=== PATIENT | male | born 1935 | race Caucasian/White ===

== ENCOUNTER 2019-01-04 12:12 | Inpatient (IN) ==
[2019-01-04] MEDS ORDERED: 0.9 % SODIUM CHLORIDE 1,000 ML IV ONE ×2 (12:39→14:11)
--- NOTE | 2019-01-04 12:46 | Emergency Department Note ---
Weakness HPI - General Chief complaint: Weakness Stated complaint: Weakness, General Fatigue, Diarrher Time Seen by Provider: 01/04/19 12:17 Source: patient Mode of arrival: wheelchair Limitations: no limitations - History of Present Illness HPI Narrative: 83-year-old male in ED with family present. Patient states he's had diarrhea for the last 5 days, this is not normal. Patient also has fever for the last 2 days. Patient has had increased weakness over the last few days. Patient has had lung cancer for the last 2.5 years. Patient does receive weekly infusions for 3 weeks on 1 week off. Patient was supposed to have his infusion today but his blood pressure was 112/60 with increased weakness and fever so he did not receive it and was advised to come into the ED. Patient has not been on antibiotics recently. Patient states he does get diarrhea from time to time but not to this extent. Patient has shortness of breath per his normal due to COPD. Patient has had no chest pain, no abdominal pain, no changes in his bladder, does have headache from time to time which is his normal. Patient has had recent changes at home as his was injured and is now in a care center for short period of time. Patient has been tending to himself at home and has had decreased appetite and increased activity. MD Complaint: generalized weakness, lack of energy Onset (ago): day(s) (5) Duration: constant Location: generalized Severity: moderate Improves with: none Worsens with: exertion Context: other (Diarrhea and wifes recent absence) Associated symptoms: Reports: fever/chills, loss of appetite, shortness of breath (chronic, does have HX-pneumonia) - Related Data Home Medications Medication Instructions Recorded Confirmed cyanocobalamin (vit B-12) 1,000 1,000 mcg PO .QOD tab 04/23/16 01/04/19 mcg tablet aspirin 81 mg tablet,delayed 81 mg PO QDAY 07/08/17 01/04/19 release paclitaxel 6 mg/mL 5.63 mg/m2/hr IV WEEKLY 06/14/18 01/04/19 concentrate,intravenous calcium 600mg/vitamin d3 400 iu 600 mg PO QDAY 08/16/18 01/04/19 cholecalciferol (vitamin D3) 1,000 1,000 unit PO QDAY 08/16/18 01/04/19 unit capsule pantoprazole 40 mg tablet,delayed 40 mg PO QDAY 08/16/18 01/04/19 release Denosumab [Xgeva] 120 mg SC QMONTH 01/04/19 01/04/19 Gabapentin [Neurontin] 300 mg PO TID 01/04/19 01/04/19 Tamsulosin [Flomax] 0.4 mg PO DAILY 01/04/19 01/04/19 traZODone HCL [Trazodone HCl] 100 mg PO HS 01/04/19 01/04/19 Previous Rx's Medication Instructions Recorded folic acid 1 mg tablet 1 mg PO QDAY #90 tab 03/08/18 fluoxetine 20 mg tablet 20 mg PO DAILY #30 tab 04/20/18 ipratropium-albuterol 0.5 mg-3 3 ml INHALATION Q6H PRN #90 ml 05/10/18 mg(2.5 mg base)/3 mL nebulization soln fluticasone 100 mcg-umeclid 62.5 1 inh INHALATION QDAY #60 each 06/03/18 mcg-vilant 25 mcg powd for inhalation potassium chloride ER 10 mEq 10 meq PO QDAY #90 tab 06/25/18 tablet,extended release albuterol sulfate HFA 90 2 puff INHALATION Q3-4H PRN #18 g 08/19/18 mcg/actuation aerosol inhaler Allergies Allergy/AdvReac Type Severity Reaction Status Date / Time fish oil Allergy Unknown Nausea Verified 08/16/18 10:28 spironolactone Allergy Unknown Unknown Verified 08/16/18 10:28 carvedilol AdvReac Intermediate Nausea Verified 08/16/18 10:28 Review of Systems All systems ED: reviewed and negative except as stated. Past Medical History - Past Medical History PMFSH Narrative: All Active Problems (Last Reviewed 10/13/17 @ 12:55 by Sandy Nguyễn RN) Anorexia (Acute) Weakness (Acute) Insomnia (Acute) Hypotension (Acute) Meningioma (Acute) Lung cancer (Chronic) Atherosclerotic PVD with intermittent claudication (Acute) Pneumothorax after biopsy (Acute) COPD (chronic obstructive pulmonary disease) (Chronic) Essential hypertension (Chronic) Hyperlipidemia (Chronic) Vitamin D deficiency (Chronic) Vitamin B 12 deficiency (Chronic) Peripheral neuropathy (Chronic) Homocystinemia (Chronic) History of tobacco use (Chronic) H/O sinus surgery (Chronic) Tuberculosis (Chronic) Gallbladder problem (Chronic) Depression (Chronic) Arthritis (Chronic) Acid reflux (Chronic) Past Surgical History (Last Reviewed 10/13/17 @ 12:55 by Sandy Nguyễn RN) H/O sinus surgery (Chronic) History of appendectomy (Chronic) History of cholecystectomy (Chronic) History of colonoscopy (Chronic) Hx of cataract surgery (Chronic) Status post surgery (Chronic) Family History (Last Reviewed 10/13/17 @ 12:55 by Sandy Nguyễn RN) Mother Malignant neoplasm of breast Father Pulmonary emphysema Malignant neoplasm of throat Sister Malignant neoplasm of endometrium Medical history: Reports: cancer (Lung, 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 Episode 20 years ago of acute renal failure.). Denies: coronary artery disease, CVA, DM, hypertension, myocardial infarction, thyroid disease, TIA Psychiatric history: Reports: anxiety. Denies: depression Surgical history ED: Reports: no surgical history - Social History smoking status: Former smoker Alcohol use: Reports: None Physical Exam Limitations: no limitations General appearance: alert, malaise Head: atraumatic, normocephalic, normal inspection Eye: Present: normal appearance, PERRL, EOMI. Absent: conjunctival injection ENT: normal oropharynx, mucous membranes dry, TM's normal bilaterally, normal external ear exam Neck: Present: normal inspection. Absent: tenderness, lymphadenopathy Chest: Present: normal inspection, symmetric chest wall rise, other (Port a cath access right side). Absent: tenderness Respiratory: Present: rales/crackles. Absent: respiratory distress, wheezes, accessory muscle use Cardiovascular: Present: irregular rhythm. Absent: systolic murmur, diastolic murmur Abdominal: Present: soft, normal bowel sounds. Absent: distention, tenderness, guarding, rebound, rigidity Extremities: Present: normal inspection, pedal edema (+1 bilaterally). Absent: tenderness Back: Present: normal inspection. Absent: tenderness, CVA tenderness (R), CVA tenderness (L) Neurological: Present: alert, oriented X3 Psychiatric: Present: normal affect, normal mood, depressed. Absent: agitated, anxious Skin: Present: warm, dry, intact, normal color. Absent: cyanosis, diaphoresis, erythema Course Vital Signs Temperature 99.3 F H 01/04/19 12:13 Pulse Rate 77 01/04/19 12:13 Respiratory Rate 18 01/04/19 12:13 Blood Pressure 76/49 01/04/19 12:13 Pulse Oximetry (%) 93 01/04/19 12:13 Temperature 99.3 F H 01/04/19 12:13 Pulse Rate 62 01/04/19 15:16 Respiratory Rate 18 01/04/19 15:16 Blood Pressure 134/69 01/04/19 15:16 Pulse Oximetry (%) 97 01/04/19 15:16 Weakness - MDM Narrative Medical decision making narrative: Patient originally presented 8 ED U 99.3 temperature 76/49 blood pressure 93% room air pulse 77. Provided patient 1 L normal saline and blood pressures stayed in the 70s. Switched patient's blood pressure cuff to other arm and blood pressures changed 90/56, added second liter normal saline blood pressure came up to 107/63. Patient's potassium was 3.2. Provided banana bag and lunch and patient's blood pressure increased to 126/70. Patient's x-ray did show chronic COPD with possible pneumonia. Patient's white blood cell count 6.1 and lactic acid 1.8. Discussed with Dr. Mayes holding patient for overnight observations, Dr. Mayes accepted patient placed him in ICU. - Lab Data Lab results reviewed: Yes I reviewed the patient's lab results. Result diagrams: 01/04/19 12:46 01/04/19 12:46 Lab Results 01/04/19 01/04/19 01/04/19 Range/Units 12:46 12:46 12:46 WBC 6.1 (4.5-11.0) K/mcL RBC 3.38 L (4.50-5.90) M/mcL Hgb 10.1 L (13.5-16.5) g/dL Hct 30.8 L (41.0-55.0) % POC Hct 30.0 L (41.0-55.0) % MCV 91.3 (80.0-100.0) fL MCH 29.9 (26.0-34.0) pg MCHC 32.7 (31.0-36.0) g/dL RDW 17.6 H (11.5-14.5) % Plt Count 245 (140-440) K/mcL MPV 9.5 (7.4-10.4) fL Gran % 83.5 H (38.0-78.0) % Lymph % (Auto) 5.3 L (15.5-49.0) % Avery % (Auto) 10.4 (1.0-12.0) % Eos % (Auto) 0.4 (0.0-7.0) % Baso % (Auto) 0.4 (0.0-2.0) % Gran # 5.1 (1.8-8.0) K/mcL Lymph # (Auto) 0.3 L (1.5-4.8) K/mcL Avery # (Auto) 0.6 (0.1-0.9) K/mcL Eos # (Auto) 0 (0.0-0.7) K/mcL Baso # (Auto) 0 (0.0-0.3) K/mcL VBG Lactic Acid 1.8 (0.5-2.0) mmol/L POC Sodium 135 (133-145) mmol/L Sodium 136 (133-145) mmol/L POC Potassium 3.1 L (3.3-5.1) mmol/L Potassium 3.2 L (3.3-5.1) mmol/L POC Chloride 99 (96-108) mmol/L Chloride 102 (96-108) mmol/L Carbon Dioxide 23 (22-30) mmol/L POC Total CO2 22 (22-30) mmol/L Anion Gap 11.0 (8-16) POC BUN 11 (8-23) mg/dl BUN 12 (8-23) mg/dl Creatinine 1.3 H (0.7-1.2) mg/dl POC Creatinine 1.3 H (0.7-1.2) mg/dl GFR Calculation 51 Glucose 159 H (70-105) mg/dL POC Glucose 157 H (70-105) mg/dL Calcium 8.2 L (8.6-10.4) mg/dl POC WB Ioniz Calcium 1.09 L (1.16-1.32) mmol/L Total Bilirubin 0.3 (0.0-1.0) mg/dL AST 17 (0-37) U/l ALT 10 (0-40) U/l Alkaline Phosphatase 102 (39-117) U/L CK-MB (CK-2) (0-4.9) ng/ml Myoglobin (28-72) ng/ml Troponin T (0-0.03) ng/ml Total Protein 5.5 L (5.9-8.4) gm/dL Albumin 2.9 L (3.2-5.2) gm/dL Globulin 2.6 (2.2-3.7) gm/dL Albumin/Globulin Ratio 1.1 (1.0-2.3) 01/04/19 01/04/19 Range/Units 12:48 12:48 WBC (4.5-11.0) K/mcL RBC (4.50-5.90) M/mcL Hgb (13.5-16.5) g/dL Hct (41.0-55.0) % POC Hct (41.0-55.0) % MCV (80.0-100.0) fL MCH (26.0-34.0) pg MCHC (31.0-36.0) g/dL RDW (11.5-14.5) % Plt Count (140-440) K/mcL MPV (7.4-10.4) fL Gran % (38.0-78.0) % Lymph % (Auto) (15.5-49.0) % Avery % (Auto) (1.0-12.0) % Eos % (Auto) (0.0-7.0) % Baso % (Auto) (0.0-2.0) % Gran # (1.8-8.0) K/mcL Lymph # (Auto) (1.5-4.8) K/mcL Avery # (Auto) (0.1-0.9) K/mcL Eos # (Auto) (0.0-0.7) K/mcL Baso # (Auto) (0.0-0.3) K/mcL VBG Lactic Acid (0.5-2.0) mmol/L POC Sodium (133-145) mmol/L Sodium (133-145) mmol/L POC Potassium (3.3-5.1) mmol/L Potassium (3.3-5.1) mmol/L POC Chloride (96-108) mmol/L Chloride (96-108) mmol/L Carbon Dioxide (22-30) mmol/L POC Total CO2 (22-30) mmol/L Anion Gap (8-16) POC BUN (8-23) mg/dl BUN (8-23) mg/dl Creatinine (0.7-1.2) mg/dl POC Creatinine (0.7-1.2) mg/dl GFR Calculation Glucose (70-105) mg/dL POC Glucose (70-105) mg/dL Calcium (8.6-10.4) mg/dl POC WB Ioniz Calcium (1.16-1.32) mmol/L Total Bilirubin (0.0-1.0) mg/dL AST (0-37) U/l ALT (0-40) U/l Alkaline Phosphatase (39-117) U/L CK-MB (CK-2) 3.5 (0-4.9) ng/ml Myoglobin 294 H (28-72) ng/ml Troponin T 0.01 (0-0.03) ng/ml Total Protein (5.9-8.4) gm/dL Albumin (3.2-5.2) gm/dL Globulin (2.2-3.7) gm/dL Albumin/Globulin Ratio (1.0-2.3) - Radiology Data Radiology results reviewed: Yes I reviewed the patient's radiology results. Chest x-ray: IMPRESSION: 1. Bibasilar pulmonary parenchymal density. Pneumonia is possible 2. Chronic COPD Disposition Pt seen by PROPERTY CLAIMS MANAGER/PA only: No ([employer]) Clinical Impression: Weakness Hypotension Qualifiers: Hypotension type: hypotension due to hypovolemia Qualified Code(s): I95.89 - Other hypotension; E86.1 - Hypovolemia Disposition: Xfer As Inpt ([facility]) Condition: Fair Referrals: Lon Burch DO [Primary Care Provider] - Time of Disposition: 15:38
--- NOTE | 2019-01-04 13:05 | XRay Report ---
INDICATION: COPD. Lung cancer. Flulike symptoms TECHNIQUE: AP chest x-ray,portable upright COMPARISON: Most recent previous chest x-rays dated 10/09/2017, 05/28/2017, 10/10/2016. Chest CT scan dated 04/18/2016 FINDINGS:Small caliber right central venous catheter with Port-A-Cath. Catheter tip is in the distal superior vena cava, unchanged. History of COPD. Previous CT scan demonstrated a right apical pulmonary parenchymal mass. This is not visible on present examination. There is bibasilar pulmonary parenchymal density which may be due to pneumonia. Clinical correlation follow-up radiograph recommended. No evidence for congestive heart failure There is sclerotic density in the anterior right first rib. Metastatic disease is possible. IMPRESSION: 1. Bibasilar pulmonary parenchymal density. Pneumonia is possible 2. Chronic COPD Interpreted and Authenticated by: Lon Bonilla 01/04/19
[2019-01-04 13:28] LABS: Basophils # (Auto) 0 K/mcL (0.0-0.3); Basophils % (Auto) 0.4 % (0.0-2.0); Eosinophils # (Auto) 0 K/mcL (0.0-0.7); Eosinophils % (Auto) 0.4 % (0.0-7.0); Granulocytes % (Auto) 83.5 % (38.0-78.0); Lymphocytes # (Auto) 0.3 K/mcL (1.5-4.8); Lymphocytes % (Auto) 5.3 % (15.5-49.0); Mean Cell Volume 91.3 fL (80.0-100.0); Mean Corpuscular HGB Conc 32.7 g/dL (31.0-36.0); Monocytes # (Auto) 0.6 K/mcL (0.1-0.9); Monocytes % (Auto) 10.4 % (1.0-12.0); Platelet Count 245 K/mcL (140-440); RBC 3.38 M/mcL (4.50-5.90); Red Cell Distribution Width 17.6 % (11.5-14.5)
[2019-01-04] MEDS ORDERED: POTASSIUM CHLORIDE 20 MEQ, MAGNESIUM SULFATE 16.24 MEQ, THIAMINE 100 MG, MVI, ADULT NO.... IV SCH (13:45)
[2019-01-04 13:51] LABS: Creatine Kinase MB 3.5 ng/ml (0-4.9)
[2019-01-04 13:54] LABS: ALT/SGPT 10 U/l (0-40); Albumin 2.9 gm/dL (3.2-5.2); Albumin/Globulin Ratio 1.1 (1.0-2.3); Alkaline Phosphatase 102 U/L (39-117); Blood Urea Nitrogen 12 mg/dl (8-23)
--- NOTE | 2019-01-04 14:55 | Internal Med History&Physical ---
Medical - H&P: [facility] Patient information: Note initiated : 01/04/19 at 2:45 pm Service Date, if different from initiated Date: [] Patient: Joni Darnell 83 y/o M admitted on for Weakness, General Fatigue, Diarrher. Chief Complaint: [] Chief complaint: weakness, LOW BP History of present illness: Mr. Darnell is a 83 year old M who presents to ER with progressive weakness, lightheadedness, dizziness, diarrhea that have started roughly a week ago last . Patient symptoms initially started with multiple loose watery stools progressing to weakness and lightheadedness and dizziness. Patient has substantial loss of appetite. He attributes the symptoms to "bad food"that he ate with some of his female friends. Over the last week patient has been held by his friend Omega who has been taking care of him. He also endorses to fever over the last 48 hours along with incontinence episode. He would find stool in his underwear. The diarrhea did not improve despite Imodium. Notably he is undergoing chemoradiation for his metastatic lung cancer which is managed by Dr. Ureña. Also he has had a stressful week as his sustained a fracture slipping on ice and is currently at [facility] recovering from surgery. Initial workup in the ER was significant for hypotension with systolics at 70 along with potassium 3.1. Patient received crystalloids. Subsequently hospitalist service was consulted for admission in light of above He denies abdominal pain, cramping, dysuria, shortness of breath, chest pain, headache, photophobia. He further denies weight loss, leg swelling, rash or joint pain. He denies sick contacts or travel Review of systems 10 point review system was performed and is negative except for one discussed above Medical - H&P: PMH Medical history: Lung cancer (Chronic) Pneumothorax after biopsy (Acute) 04/20 Chest film shows no pneumo and radiologist requests two view xray for to moorw to be done in dept. If OK then can put tube to water seal. 04/22 Discharge if chest film shows no pneumo after tube removal. COPD (chronic obstructive pulmonary disease) (Chronic) Essential hypertension (Chronic) Hyperlipidemia (Chronic) Vitamin D deficiency (Chronic) Vitamin B 12 deficiency (Chronic) Peripheral neuropathy (Chronic) Homocystinemia (Chronic) History of tobacco use (Chronic) Tuberculosis (Chronic) at age 8 Gallbladder problem (Chronic) removed Depression (Chronic) Arthritis (Chronic) Acid reflux (Chronic) Surgical History H/O sinus surgery (Chronic) 1983 sinus reconstruction History of appendectomy (Chronic) History of cholecystectomy (Chronic) 2001 due to gallstones History of colonoscopy (Chronic) 2003 Hx of cataract surgery (Chronic) right eye Status post surgery (Chronic) Surgery for perirectal abscess Family History Mother , at age 70 Malignant neoplasm of breast Metastasized to lungs Father , at age 64 Pulmonary emphysema Malignant neoplasm of throat Sister Malignant neoplasm of endometrium Social History marital status: other: Children-2 smoking status: Former smoker quit date: 01/22/07 pack-years: 50 alcohol intake frequency: does not drink substance use type: does not use Medical - H&P: Meds Home Medications Medication Instructions Recorded Confirmed Type cyanocobalamin (vit B-12) 1,000 1,000 mcg PO .QOD tab 04/23/16 01/04/19 History mcg tablet aspirin 81 mg tablet,delayed 81 mg PO QDAY 07/08/17 01/04/19 History release folic acid 1 mg tablet 1 mg PO QDAY #90 tab 03/08/18 01/04/19 Rx fluoxetine 20 mg tablet 20 mg PO DAILY #30 tab 04/20/18 01/04/19 Rx ipratropium-albuterol 0.5 mg-3 3 ml INHALATION Q6H PRN #90 ml 05/10/18 01/04/19 Rx mg(2.5 mg base)/3 mL nebulization soln fluticasone 100 mcg-umeclid 62.5 1 inh INHALATION QDAY #60 each 06/03/18 01/04/19 Rx mcg-vilant 25 mcg powd for inhalation paclitaxel 6 mg/mL 5.63 mg/m2/hr IV WEEKLY 06/14/18 01/04/19 History concentrate,intravenous potassium chloride ER 10 mEq 10 meq PO QDAY #90 tab 06/25/18 01/04/19 Rx tablet,extended release calcium 600mg/vitamin d3 400 iu 600 mg PO QDAY 08/16/18 01/04/19 History cholecalciferol (vitamin D3) 1,000 1,000 unit PO QDAY 08/16/18 01/04/19 History unit capsule pantoprazole 40 mg tablet,delayed 40 mg PO QDAY 08/16/18 01/04/19 History release albuterol sulfate HFA 90 2 puff INHALATION Q3-4H PRN #18 g 08/19/18 01/04/19 Rx mcg/actuation aerosol inhaler Denosumab [Xgeva] 120 mg SC QMONTH 01/04/19 01/04/19 History Gabapentin [Neurontin] 300 mg PO TID 01/04/19 01/04/19 History Tamsulosin [Flomax] 0.4 mg PO DAILY 01/04/19 01/04/19 History traZODone HCL [Trazodone HCl] 100 mg PO HS 01/04/19 01/04/19 History Allergies Allergy/AdvReac Type Severity Reaction Status Date / Time fish oil Allergy Unknown Nausea Verified 08/16/18 10:28 spironolactone Allergy Unknown Unknown Verified 08/16/18 10:28 carvedilol AdvReac Intermediate Nausea Verified 08/16/18 10:28 Medical - H&P: Exam - Constitutional Vitals: Temp Pulse Resp BP Pulse Ox 99.3 F H 62 21 117/74 96 01/04/19 12:13 01/04/19 14:01 01/04/19 14:01 01/04/19 14:01 01/04/19 14:01 General appearance: no acute distress Exam: Alert oriented Head normocephalic Neck no hepatopathy Oral cavity dry No ear nose discharge S1-S2 occasionally irregular, ejection systolic murmur grade 1 Diminished breath sounds bases, expiratory rhonchi, Port-A-Cath right side Abdomen soft nontender Lower extremity no cyanosis clubbing, 1+ pedal edema Skin no suspicious lesion Psych alert cooperative Neuro nonfocal Medical - H&P: Reslt - Labs CBC & Chem 7: 01/04/19 12:46 01/04/19 12:46 Labs: Short CBC 01/04/19 Range/Units 12:46 WBC 6.1 (4.5-11.0) K/mcL Hgb 10.1 L (13.5-16.5) g/dL Hct 30.8 L (41.0-55.0) % Plt Count 245 (140-440) K/mcL BMP 01/04/19 12:46 Sodium 136 Potassium 3.2 L Chloride 102 Carbon Dioxide 23 BUN 12 Creatinine 1.3 H Glucose 159 H Calcium 8.2 L Cardiac Enzymes 01/04/19 01/04/19 Range/Units 12:48 12:48 CK-MB (CK-2) 3.5 (0-4.9) ng/ml Troponin T 0.01 (0-0.03) ng/ml Liver Function 01/04/19 Range/Units 12:46 Total Bilirubin 0.3 (0.0-1.0) mg/dL AST 17 (0-37) U/l ALT 10 (0-40) U/l Alkaline Phosphatase 102 (39-117) U/L Albumin 2.9 L (3.2-5.2) gm/dL Medical - H&P: A/P (1) Hypotension Current visit: Yes Status: Acute * Hypotension-likely volume depletion from persistent diarrhea and poor p.o. intake. Continue crystalloid/close monitoring. Check orthostatiics, no evidence of infection/sepsis. personnel monitor for bradycardia/arrhythmias, hold antihypertensives. Low probability PE in the absence of hypoxia. Last echo reviewed 10/14/16-EF 65% with concentric LVH * Hypokalemia-start replacement. Potassium 3.1 * Diarrhea-check C. difficile/stool study. Continue crystalloids * Generalized weakness-aggressive PT OT * Lung cancer-Currently on paclitaxel and denosumab managed at [facility] * Essential hypertension-hold antihypertensives until blood pressure improves * History of COPD continue bronchodilators * History of chronic kidney disease-creatinine baseline * Depression-continue home dose fluoxetine * Peripheral vascular disease on pentoxifylline * Neuropathy continue gabapentin * BPH continue tamsulosin * Full code * Prophylaxis heparin Plan * Crystalloids * Inpatient telemetry admit * Potassium replacement * Stool culture/C. difficile/fecal leukocytes * Aggressive PT OT * Pre-existing condition management as above
[2019-01-04] MEDS ORDERED: IPRATROPIUM/ALBUTEROL 3 ML AMPUL.NEB NEB PRN (15:01)
[2019-01-04] MEDS ORDERED: ALBUTEROL SULFATE 1 PUFF INHALER INH PRN (15:01)
[2019-01-04] MEDS ORDERED: [UNRECOGNIZED DRUG - OTHER] IV SCH (15:15)
[2019-01-04] MEDS ORDERED: PACLITAXEL IV SCH (15:15)
[2019-01-04] MEDS ORDERED: ONDANSETRON 4 MG/2 ML VIAL IV PRN (16:33)
[2019-01-04] MEDS ORDERED: MAGNESIUM SULFATE 2 GM/50 ML BAG IV PRN (16:33)
[2019-01-04] MEDS ORDERED: POTASSIUM CHLORIDE 20 MEQ PACKET PO PRN (16:33)
[2019-01-04] MEDS ORDERED: ACETAMINOPHEN 325 MG TABLET PO PRN (16:33)
[2019-01-04] MEDS: 0.9 % SODIUM CHLORIDE 1,000 ML IV SCH (16:38)
[2019-01-04] MEDS: ACETAMINOPHEN 1,000 MG/100 ML BOTTLE IV PRN (17:10)
[2019-01-04 18:24] LABS: Appearance,Urine CLEAR; Bacteria,Urine 0 /hpf (0); Bilirubin,Urine NEG (NEG); Color,Urine YELLOW; Glucose,Urine (UA) NEGATIVE (NEG); Leukocyte Esterase,Urine NEG /uL (NEG); Protein,Urine NEG (NEG); Specific Gravity,Urine 1.008 (1.000-1.035); Urine Blood NEG mg/dL (<0.03); Urine RBC 0 /hpf (0-1); Urine Squamous Epithelial Cell < 1 /hpf (0-4); Urine WBC 1 /hpf (0-4); Urobilinogen,Urine NEG (NEG)
[2019-01-04] MEDS: SENNOSIDES/DOCUSATE SODIUM 1 TAB TABLET PO SCH (20:24)
[2019-01-04] MEDS: DOCUSATE SODIUM 100 MG CAPSULE PO SCH (20:24)
[2019-01-04] MEDS: GABAPENTIN 300 MG CAPSULE PO SCH (20:33)
[2019-01-04] MEDS: HEPARIN 5,000 UNIT/ML VIAL SQ SCH (20:34)
[2019-01-04] MEDS: 0.9 % SODIUM CHLORIDE 10 ML SYRINGE IV SCH (20:34)
[2019-01-04] MEDS: traZODone HCL 100 MG TABLET PO SCH (20:34)
[2019-01-04] MEDS: CYANOCOBALAMIN (VITAMIN B-12) 500 MCG TABLET PO SCH (20:34)
--- NOTE | 2019-01-04 22:06 | Emergency Department Note ---
ED Note Addendum Note Addendum: I discussed this case with the mid-level provider and agree with the assessment and plan.
[2019-01-05] MEDS: ACETAMINOPHEN 1,000 MG/100 ML BOTTLE IV PRN ×2 (00:18→06:31)
[2019-01-05] MEDS: 0.9 % SODIUM CHLORIDE 10 ML SYRINGE IV SCH ×3 (05:34→21:12)
[2019-01-05 06:38] LABS: Mean Corpuscular HGB Conc 32.2 g/dL (31.0-36.0); Platelet Count 232 K/mcL (140-440); RBC 3.13 M/mcL (4.50-5.90); Red Cell Distribution Width 17.7 % (11.5-14.5)
[2019-01-05] MEDS: PANTOPRAZOLE 40 MG TABLET PO SCH (06:55)
[2019-01-05 07:14] LABS: ALT/SGPT 12 U/l (0-40); Albumin 2.5 gm/dL (3.2-5.2); Alkaline Phosphatase 131 U/L (39-117); Bilirubin,Direct 0.2 mg/dL (0.0-0.3); Blood Urea Nitrogen 8 mg/dl (8-23); Gamma Glutamyl Transpeptidase 51 U/L (8-61); Uric Acid 4.4 mg/dL (2.5-8.0)
[2019-01-05 07:41] LABS: Anisocytosis 1+ (NONE SEEN); Band Neutrophils % 1 % (0-10); Eosinophils % (Manual) 1 % (0-7); Lymphocytes % 3 % (15-49); Monocytes % (Manual) 5 % (1-12); Platelet Estimate NORMAL (NORMAL); RBC Morphology ABNORM (NORMAL); Segmented Neutrophils % 90 % (38-78)
[2019-01-05] MEDS ORDERED: DENOSUMAB 120 MG SC SCH (09:00)
[2019-01-05] MEDS: TAMSULOSIN 0.4 MG CAPSULE PO SCH (09:39)
[2019-01-05] MEDS: DOCUSATE SODIUM 100 MG CAPSULE PO SCH ×3 (09:39→21:12)
[2019-01-05] MEDS: HEPARIN 5,000 UNIT/ML VIAL SQ SCH ×2 (09:39→21:12)
[2019-01-05] MEDS: ASPIRIN 81 MG TAB.CHEW PO SCH (09:39)
[2019-01-05] MEDS: POTASSIUM CHLORIDE 10 MEQ TABLET PO SCH (09:39)
[2019-01-05] MEDS: FLUoxetine HCL 20 MG CAPSULE PO SCH (09:40)
[2019-01-05] MEDS: GABAPENTIN 300 MG CAPSULE PO SCH ×2 (09:40→21:11)
[2019-01-05] MEDS: MULTIVIT,THER IRON,CA,FA & MIN 1 TABLET PO SCH (09:40)
[2019-01-05] MEDS: FLUTICASONE INH SCH (09:40)
[2019-01-05] MEDS: UMECLIDINIUM INH SCH (09:40)
[2019-01-05] MEDS: FOLIC ACID 1 MG TABLET PO SCH (09:40)
[2019-01-05] MEDS: CYANOCOBALAMIN (VITAMIN B-12) 500 MCG TABLET PO SCH ×2 (09:40→21:12)
[2019-01-05] MEDS: VILANTEROL INH SCH (09:40)
[2019-01-05] MEDS: 0.9 % SODIUM CHLORIDE 1,000 ML IV SCH (14:03)
--- NOTE | 2019-01-05 17:23 | Internal Med Progress Note ---
Medical - PN: Subj Patient information: Note initiated : 01/05/19 at 5:18 pm Service Date, if different from initiated Date: [] Patient: Joni Darnell 83 y/o M admitted on 01/04/19 for Weakness, General Fatigue, Diarrher. Chief Complaint: [] Interval history: Mr. Darnell is a 83 year old M who presents to ER with progressive weakness, lightheadedness, dizziness, diarrhea that have started roughly a week ago last T hursday. Patient symptoms initially started with multiple loose watery stools progressing to weakness and lightheadedness and dizziness. Patient has substantial loss of appetite. He attributes the symptoms to "bad food"that he ate with some of his female friends. Over the last week patient has been held by his friend Omega who has been taking care of him. He also endorses to fever over the last 48 hours along with incontinence episode. He would find stool in his underwear. The diarrhea did not improve despite Imodium. Notably he is undergoing chemoradiation for his metastatic lung cancer which is managed by Dr. Ureña. Also he has had a stressful week as his sustained a fracture slipping on ice and is currently at [facility] recovering from surgery. Initial workup in the ER was significant for hypotension with systolics at 70 along with potassium 3.1. Patient received crystalloids. Subsequently hospitalist service was consulted for admission in light of above He denies abdominal pain, cramping, dysuria, shortness of breath, chest pain, headache, photophobia. He further denies weight loss, leg swelling, rash or joint pain. He denies sick contacts or travel 01/05-patient doing well. Improved hypotension. No telemetry events. Potassium improved from 3.1-3.6. Tolerating diet. Diarrhea resolved. Nausea improved. Continue existing treatments. Transfer to medical floor in 24 hours. Continue aggressive rehab/dietary support. No overnight fever chills or concerns per staff - Constitutional Vitals: Vital Signs Temp Pulse Resp BP Pulse Ox 98.1 F 56 L 18 152/86 92 01/05/19 16:29 01/04/19 20:27 01/05/19 16:29 01/05/19 16:29 01/05/19 16:29 Period Temp Pulse Resp BP Sys/Benavides Pulse Ox Last 24 Hr 97.7 F-100.0 F 56-65 16-25 70-152/45-94 83-97 Intake and Output 01/05/19 01/05/19 01/05/19 05:59 13:59 21:59 Intake Total 460 2040 Output Total 850 1050 Balance -390 990 Weight 167 lb Patient Weight 01/06/19 05:59 Weight 167 lb Intake & Output: Intake & Output 01/05/19 01/05/19 01/05/19 05:59 13:59 21:59 Intake Total 460 2040 Output Total 850 1050 Balance -390 990 Weight 167 lb Intake: IV 100 1100 Sodium Chloride 0.9% 1,000 ml @ 1000 50 mls/hr IV .Q20H [facility] Rx#: [id number] Oral 360 940 Output: Void Amount 850 1050 Other: Urine Appearance Clear Urine Color Bright Yellow Pale General appearance: cooperative, no acute distress Exam: Alert oriented No telemetry events No anxiety Nonlabored breathing Medical - PN: Obj Da - Labs CBC & Chem 7: 01/05/19 03:21 01/05/19 03:21 Labs: Abnormal Lab Results 01/05/19 01/05/19 01/04/19 03:21 03:21 12:48 RBC 3.13 L Hgb 9.3 L Hct 28.8 L POC Hct RDW 17.7 H Gran % Lymph % (Auto) Lymph # (Auto) Seg Neutrophils % 90 H Lymphocytes % 3 L RBC Morphology Abnorm A Anisocytosis 1+ A POC Potassium Potassium Chloride 110 H Creatinine POC Creatinine Glucose POC Glucose Calcium 7.6 L POC WB Ioniz Calcium Phosphorus 1.4 L Alkaline Phosphatase 131 H Myoglobin 294 H Total Protein 5.0 L Albumin 2.5 L 01/04/19 01/04/19 12:46 12:46 RBC 3.38 L Hgb 10.1 L Hct 30.8 L POC Hct 30.0 L RDW 17.6 H Gran % 83.5 H Lymph % (Auto) 5.3 L Lymph # (Auto) 0.3 L Seg Neutrophils % Lymphocytes % RBC Morphology Anisocytosis POC Potassium 3.1 L Potassium 3.2 L Chloride Creatinine 1.3 H POC Creatinine 1.3 H Glucose 159 H POC Glucose 157 H Calcium 8.2 L POC WB Ioniz Calcium 1.09 L Phosphorus Alkaline Phosphatase Myoglobin Total Protein 5.5 L Albumin 2.9 L Meds: Medications Acetaminophen (Tylenol) 650 mg PO Q4-6HP PRN PRN Reason: PAIN/FEVER > 101 Albuterol Sulfate (Ventolin) 2 puff INH Q3-4HP PRN PRN Reason: BRONCHOSPASM Albuterol/Ipratropium (Duoneb) 3 ml NEB Q6HP PRN PRN Reason: Wheezing Aspirin (Aspirin) 81 mg PO DAILY [facility] Last Admin: 01/05/19 09:39 Dose: 81 mg Documented by: Cyanocobalamin (Vitamin B-12) 1,000 mcg PO BID [facility] Stop: 01/09/19 09:01 Last Admin: 01/05/19 09:40 Dose: 1,000 mcg Documented by: Docusate Sodium (Colace) 100 mg PO BID [facility] Last Admin: 01/05/19 09:51 Dose: Not Given Documented by: Fluoxetine HCl (Prozac) 20 mg PO DAILY [facility] Last Admin: 01/05/19 09:40 Dose: 20 mg Documented by: Folic Acid (Folic Acid) 1 mg PO QDAY [facility] Last Admin: 01/05/19 09:40 Dose: 1 mg Documented by: Gabapentin (Neurontin) 300 mg PO BID [facility] Last Admin: 01/05/19 09:40 Dose: 300 mg Documented by: Heparin Sodium (Porcine) (Heparin) 5,000 unit SQ Q12 [facility] Last Admin: 01/05/19 09:39 Dose: 5,000 unit Documented by: Magnesium Sulfate (Magnesium Sulfate) 2 gm in 50 mls @ 50 mls/hr IV UD PRN PRN Reason: MG = or < 1.7 Sodium Chloride (Sodium Chloride 0.9%) 1,000 mls @ 50 mls/hr IV .Q20H [facility] Stop: 01/07/19 04:32 Last Admin: 01/05/19 14:03 Dose: 50 mls/hr Documented by: Acetaminophen (Ofirmev) 1,000 mg in 100 mls @ 200 mls/hr IV Q6HP PRN PRN Reason: PAIN/FEVER > 101 Last Infusion: 01/05/19 07:40 Dose: Infused Documented by: Iron Carb/Multivit/[place]/Folic Acid (Multivitamin W/Minerals) 1 tab PO DAILY [facility] Last Admin: 01/05/19 09:40 Dose: 1 tab Documented by: Ondansetron HCl (Zofran) 4 mg IV Q4-6HP PRN PRN Reason: Nausea And Vomiting Pantoprazole Sodium (Protonix) 40 mg PO ACB [facility] Last Admin: 01/05/19 06:55 Dose: 40 mg Documented by: Fluticasone 100 Mcg/Umeclidinium 62.5 Mcg/ Vilanterol 25 Mcg Inhaler 1 dose INH DAILY [facility] Last Admin: 01/05/19 09:40 Dose: Not Given Documented by: Potassium Chloride (Kdur) 10 meq PO QAC [facility] Last Admin: 01/05/19 09:39 Dose: 10 meq Documented by: Potassium Chloride (Klor-Con) 40 meq PO DAILYP PRN PRN Reason: K+ < 3.5 Senna/Docusate Sodium (Senna Plus Tablet) 1 tab PO [facility] Last Admin: 01/04/19 20:24 Dose: Not Given Documented by: Sodium Chloride (Saline Flush) 10 ml IV Q8 [facility] Last Admin: 01/05/19 14:03 Dose: Not Given Documented by: Tamsulosin HCl (Flomax) 0.4 mg PO DAILY [facility] Last Admin: 01/05/19 09:39 Dose: 0.4 mg Documented by: Trazodone HCl (Desyrel) 100 mg PO [facility] Last Admin: 01/04/19 20:34 Dose: 100 mg Documented by: Medical - PN: A/P - Time Spent With Patient Total time spent is greater than 50% in coordination of care (as documented) at patient's floor/unit and/or counseling patient: 15 - 24 minutes (1) Hypotension Status: Acute Assessment and plan: * Hypotension-likely volume depletion from persistent diarrhea and poor p.o. intake. Clinically improved with crystalloids. Orthostatics unremarkable. no evidence of infection/sepsis. Last echo reviewed 10/14/16-EF 65% with concentric LVH * Hypokalemia-resolved with replacement. Potassium 3.6 * Generalized weakness-ongoing rehab. manufacturing area manager arrange SNF transfer * Diarrhea-noninfectious, resolved. Continue crystalloids. Negative stool culture, C. difficile, fecal leukocyte * Generalized weakness-clinically improving with ongoing PT OT * Lung cancer-Currently on paclitaxel and denosumab managed at [place] [facility] * Essential hypertension-restart antihypertensives once systolics over 140 * History of COPD continue bronchodilators * History of chronic kidney disease-creatinine baseline * Depression-continue home dose fluoxetine * Peripheral vascular disease on pentoxifylline * Neuropathy continue gabapentin * BPH continue tamsulosin * Full code * Prophylaxis heparin Plan * Continue crystalloids * Nutrition support/therapies * Pre-existing condition management as above * Case management to coordinate SNF transfer Current Visit: Yes Medical - PN: Qual - Stroke Symptom Onset Unknown: No - VTE Deep Vein Thrombosis/Pulmonary Embolism Present on Admission: No
[2019-01-05] MEDS: traZODone HCL 100 MG TABLET PO SCH (21:11)
[2019-01-05] MEDS: SENNOSIDES/DOCUSATE SODIUM 1 TAB TABLET PO SCH (21:12)
[2019-01-06] MEDS: 0.9 % SODIUM CHLORIDE 10 ML SYRINGE IV SCH ×3 (04:36→21:34)
[2019-01-06 05:37] LABS: Mean Cell Volume 91.4 fL (80.0-100.0); Mean Corpuscular HGB Conc 32.8 g/dL (31.0-36.0); Platelet Count 338 K/mcL (140-440); Red Cell Distribution Width 18.1 % (11.5-14.5)
[2019-01-06 06:31] LABS: ALT/SGPT 12 U/l (0-40); Albumin 2.8 gm/dL (3.2-5.2); Albumin/Globulin Ratio 0.9 (1.0-2.3); Alkaline Phosphatase 191 U/L (39-117); Bilirubin,Direct < 0.2 mg/dL (0.0-0.3); Blood Urea Nitrogen 5 mg/dl (8-23); Gamma Glutamyl Transpeptidase 64 U/L (8-61); Uric Acid 3.5 mg/dL (2.5-8.0)
[2019-01-06 06:48] LABS: Anisocytosis 1+ (NONE SEEN); Band Neutrophils % 1 % (0-10); Eosinophils % (Manual) 1 % (0-7); Lymphocytes % 5 % (15-49); Monocytes % (Manual) 7 % (1-12); Platelet Estimate NORMAL (NORMAL); RBC Morphology ABNORM (NORMAL); Segmented Neutrophils % 86 % (38-78)
[2019-01-06] MEDS: PANTOPRAZOLE 40 MG TABLET PO SCH (07:30)
[2019-01-06] MEDS: POTASSIUM CHLORIDE 10 MEQ TABLET PO SCH (07:30)
[2019-01-06] MEDS: TAMSULOSIN 0.4 MG CAPSULE PO SCH (08:48)
[2019-01-06] MEDS: HEPARIN 5,000 UNIT/ML VIAL SQ SCH ×2 (08:48→21:34)
[2019-01-06] MEDS: GABAPENTIN 300 MG CAPSULE PO SCH ×2 (08:48→21:34)
[2019-01-06] MEDS: FOLIC ACID 1 MG TABLET PO SCH (08:48)
[2019-01-06] MEDS: FLUoxetine HCL 20 MG CAPSULE PO SCH (08:48)
[2019-01-06] MEDS: MULTIVIT,THER IRON,CA,FA & MIN 1 TABLET PO SCH (08:48)
[2019-01-06] MEDS: ASPIRIN 81 MG TAB.CHEW PO SCH (08:48)
[2019-01-06] MEDS: CYANOCOBALAMIN (VITAMIN B-12) 500 MCG TABLET PO SCH ×2 (08:48→21:32)
[2019-01-06] MEDS: DOCUSATE SODIUM 100 MG CAPSULE PO SCH ×2 (08:49→21:32)
[2019-01-06] MEDS: FLUTICASONE INH SCH (10:33)
[2019-01-06] MEDS: UMECLIDINIUM INH SCH (10:33)
[2019-01-06] MEDS: VILANTEROL INH SCH (10:33)
[2019-01-06] MEDS: 0.9 % SODIUM CHLORIDE 1,000 ML IV SCH (10:43)
--- NOTE | 2019-01-06 11:15 | Internal Med Progress Note ---
Medical - PN: Subj Patient information: Note initiated : 01/06/19 at 11:12 am Service Date, if different from initiated Date: [] Patient: Joni Darnell 83 y/o M admitted on 01/04/19 for Weakness, General Fatigue, Diarrher. Chief Complaint: [] Interval history: Mr. Darnell is a 83 year old M who presents to ER with progressive weakness, lightheadedness, dizziness, diarrhea that have started roughly a week ago last . Patient symptoms initially started with multiple loose watery stools progressing to weakness and lightheadedness and dizziness. Patient has substantial loss of appetite. He attributes the symptoms to "bad food"that he ate with some of his female friends. Over the last week patient has been held by his friend Omega who has been taking care of him. He also endorses to fever over the last 48 hours along with incontinence episode. He would find stool in his underwear. The diarrhea did not improve despite Imodium. Notably he is undergoing chemoradiation for his metastatic lung cancer which is managed by Dr. Ureña. Also he has had a stressful week as his sustained a fracture slipping on ice and is currently at [facility] recovering from surgery. Initial workup in the ER was significant for hypotension with systolics at 70 along with potassium 3.1. Patient received crystalloids. Subsequently hospitalist service was consulted for admission in light of above He denies abdominal pain, cramping, dysuria, shortness of breath, chest pain, headache, photophobia. He further denies weight loss, leg swelling, rash or joint pain. He denies sick contacts or travel 01/05-patient doing well. Improved hypotension. No telemetry events. Potassium improved from 3.1-3.6. Tolerating diet. Diarrhea resolved. Nausea improved. Continue existing treatments. Transfer to medical floor in 24 hours. Continue aggressive rehab/dietary support. No overnight fever chills or concerns per staff 01/06-patient doing a lot better. Diarrhea resolved. On crystalloids. Hy potension resolved. Ambulating tolerating diet. No telemetry events. Transfer to medical floor. Continue nutrition and rehab support. Anticipate SNF transfer in 24 hours if clinically continues to improve. Feeling a lot stronger and near baseline. - Constitutional Vitals: Vital Signs Temp Pulse Resp BP Pulse Ox 99.8 F H 81 21 151/98 93 01/06/19 07:10 01/05/19 22:44 01/06/19 07:10 01/06/19 07:10 01/06/19 07:10 Period Temp Pulse Resp BP Sys/Benavides Pulse Ox Last 24 Hr 98.1 F-100.3 F 80-81 17-25 132-152/86-98 92-95 Intake and Output 01/05/19 01/06/19 01/06/19 21:59 05:59 13:59 Intake Total 101 272 9714 Output Total 550 1675 Balance -80 -1315 1840 Weight 169 lb Intake & Output: Intake & Output 01/05/19 01/06/19 01/06/19 21:59 05:59 13:59 Intake Total 112 772 9225 Output Total 550 1675 Balance -80 -1315 1840 Weight 169 lb Intake: Nourishment/Supplement quantity 50 (ml) IV 1000 Sodium Chloride 0.9% 1,000 ml @ 1000 50 mls/hr IV .Q20H [facility] Rx#: [id number] Oral 420 360 840 Output: Void Amount 550 1675 Other: Meal Dinner Breakfast Percent of Meal Consumed 50% 50% Feeding Ability Independent Independent Urine Appearance Clear Clear Urine Color Bright Yellow Bright Yellow Urine Odor Normal Normal Stool Size Moderate Small Stool Color Brown Brown Stool Consistency Liquid Liquid # Voids 1 1 # Bowel Movements 1 # of times incontinent of 1 Bowels General appearance: no acute distress Exam: Alert oriented No lightheadedness dizziness Non labored breathing No anxiety Medical - PN: Obj Da - Labs CBC & Chem 7: 01/06/19 03:33 01/06/19 03:33 Labs: Abnormal Lab Results 01/06/19 01/06/19 01/05/19 03:33 03:33 03:21 RBC 3.70 L Hgb 11.1 L Hct 33.8 L POC Hct RDW 18.1 H Gran % Lymph % (Auto) Lymph # (Auto) Seg Neutrophils % 86 H Lymphocytes % 5 L RBC Morphology Abnorm A Anisocytosis 1+ A POC Potassium Potassium Chloride 110 H BUN 5 L Creatinine POC Creatinine Glucose 137 H POC Glucose Calcium 7.9 L 7.6 L POC WB Ioniz Calcium Phosphorus 1.2 L 1.4 L GGT 64 H Alkaline Phosphatase 191 H 131 H Lactate Dehydrogenase 263 H Myoglobin Total Protein 5.0 L Albumin 2.8 L 2.5 L Albumin/Globulin Ratio 0.9 L 01/05/19 01/04/19 01/04/19 03:21 12:48 12:46 RBC 3.13 L Hgb 9.3 L Hct 28.8 L POC Hct 30.0 L RDW 17.7 H Gran % Lymph % (Auto) Lymph # (Auto) Seg Neutrophils % 90 H Lymphocytes % 3 L RBC Morphology Abnorm A Anisocytosis 1+ A POC Potassium 3.1 L Potassium 3.2 L Chloride BUN Creatinine 1.3 H POC Creatinine 1.3 H Glucose 159 H POC Glucose 157 H Calcium 8.2 L POC WB Ioniz Calcium 1.09 L Phosphorus GGT Alkaline Phosphatase Lactate Dehydrogenase Myoglobin 294 H Total Protein 5.5 L Albumin 2.9 L Albumin/Globulin Ratio 01/04/19 12:46 RBC 3.38 L Hgb 10.1 L Hct 30.8 L POC Hct RDW 17.6 H Gran % 83.5 H Lymph % (Auto) 5.3 L Lymph # (Auto) 0.3 L Seg Neutrophils % Lymphocytes % RBC Morphology Anisocytosis POC Potassium Potassium Chloride BUN Creatinine POC Creatinine Glucose POC Glucose Calcium POC WB Ioniz Calcium Phosphorus GGT Alkaline Phosphatase Lactate Dehydrogenase Myoglobin Total Protein Albumin Albumin/Globulin Ratio Meds: Medications Acetaminophen (Tylenol) 650 mg PO Q4-6HP PRN PRN Reason: PAIN/FEVER > 101 Last Admin: 01/06/19 08:48 Dose: 650 mg Documented by: Albuterol Sulfate (Ventolin) 2 puff INH Q3-4HP PRN PRN Reason: BRONCHOSPASM Albuterol/Ipratropium (Duoneb) 3 ml NEB Q6HP PRN PRN Reason: Wheezing Aspirin (Aspirin) 81 mg PO DAILY [facility] Last Admin: 01/06/19 08:48 Dose: 81 mg Documented by: Cyanocobalamin (Vitamin B-12) 1,000 mcg PO BID [facility] Stop: 01/09/19 09:01 Last Admin: 01/06/19 08:48 Dose: 1,000 mcg Documented by: Docusate Sodium (Colace) 100 mg PO BID [facility] Last Admin: 01/06/19 08:49 Dose: Not Given Documented by: Fluoxetine HCl (Prozac) 20 mg PO DAILY [facility] Last Admin: 01/06/19 08:48 Dose: 20 mg Documented by: Folic Acid (Folic Acid) 1 mg PO QDAY [facility] Last Admin: 01/06/19 08:48 Dose: 1 mg Documented by: Gabapentin (Neurontin) 300 mg PO BID [facility] Last Admin: 01/06/19 08:48 Dose: 300 mg Documented by: Heparin Sodium (Porcine) (Heparin) 5,000 unit SQ Q12 [facility] Last Admin: 01/06/19 08:48 Dose: 5,000 unit Documented by: Heparin Sodium (Porcine) (Heparin Flush) 2 ml IV Q12 [facility] Last Admin: 01/06/19 10:46 Dose: 2 ml Documented by: Magnesium Sulfate (Magnesium Sulfate) 2 gm in 50 mls @ 50 mls/hr IV UD PRN PRN Reason: MG = or < 1.7 Acetaminophen (Ofirmev) 1,000 mg in 100 mls @ 200 mls/hr IV Q6HP PRN PRN Reason: PAIN/FEVER > 101 Last Infusion: 01/05/19 07:40 Dose: Infused Documented by: Iron Carb/Multivit/[place]/Folic Acid (Multivitamin W/Minerals) 1 tab PO DAILY [facility] Last Admin: 01/06/19 08:48 Dose: 1 tab Documented by: Ondansetron HCl (Zofran) 4 mg IV Q4-6HP PRN PRN Reason: Nausea And Vomiting Pantoprazole Sodium (Protonix) 40 mg PO ACB [facility] Last Admin: 01/06/19 07:30 Dose: 40 mg Documented by: Fluticasone 100 Mcg/Umeclidinium 62.5 Mcg/ Vilanterol 25 Mcg Inhaler 1 dose INH DAILY [facility] Last Admin: 01/06/19 10:33 Dose: Not Given Documented by: Potassium Chloride (Kdur) 10 meq PO QAMCC [facility] Last Admin: 01/06/19 07:30 Dose: 10 meq Documented by: Potassium Chloride (Klor-Con) 40 meq PO DAILYP PRN PRN Reason: K+ < 3.5 Last Admin: 01/06/19 07:30 Dose: 40 meq Documented by: Senna/Docusate Sodium (Senna Plus Tablet) 1 tab PO HS [facility] Last Admin: 01/05/19 21:12 Dose: Not Given Documented by: Sodium Chloride (Saline Flush) 10 ml IV Q8 [facility] Last Admin: 01/06/19 04:36 Dose: Not Given Documented by: Tamsulosin HCl (Flomax) 0.4 mg PO DAILY [facility] Last Admin: 01/06/19 08:48 Dose: 0.4 mg Documented by: Trazodone HCl (Desyrel) 100 mg PO HS [facility] Last Admin: 01/05/19 21:11 Dose: 100 mg Documented by: Medical - PN: A/P - Time Spent With Patient Total time spent is greater than 50% in coordination of care (as documented) at patient's floor/unit and/or counseling patient: 15 - 24 minutes (1) Hypotension Status: Acute Assessment and plan: * Hypotension-likely secondary to volume depletion from persistent diarrhea and poor p.o. intake. Clinically resolved. Last echo reviewed 10/14/16-EF 65% with concentric LVH * Hypokalemia-continue oral replacement * Generalized weakness-clinically improving with ongoing rehab. Anticipate SNF transfer in 24 hours * Diarrhea-noninfectious, resolved. Negative stool culture, C. difficile, fecal leukocyte * History of lung cancer-Currently on paclitaxel and denosumab managed at [place] [facility] * History of COPD continue bronchodilators * History of chronic kidney disease-creatinine around 1 * Depression-continue home dose fluoxetine * Peripheral vascular disease on pentoxifylline * Neuropathy continue gabapentin * BPH continue tamsulosin * Full code * Prophylaxis heparin Plan * Transfer to medical floor * Continue rehab nutrition support * Pre-existing condition management as above * Case management to arrange SNF transfer likely in 24 hours Current Visit: Yes Medical - PN: Qual - Stroke Symptom Onset Unknown: No - VTE Deep Vein Thrombosis/Pulmonary Embolism Present on Admission: No
[2019-01-06] MEDS ORDERED: MAGNESIUM SULFATE 2 GM/50 ML BAG IV PRN (11:23)
[2019-01-06] MEDS ORDERED: ONDANSETRON 4 MG/2 ML VIAL IV PRN (11:23)
[2019-01-06] MEDS ORDERED: POTASSIUM CHLORIDE 20 MEQ PACKET PO PRN (11:23)
[2019-01-06] MEDS: ACETAMINOPHEN 1,000 MG/100 ML BOTTLE IV PRN (17:28)
--- NOTE | 2019-01-06 19:37 | XRay Report ---
INDICATION: Possible pneumonia. TECHNIQUE: AP chest x-ray,portable COMPARISON: Previous examinations dated 01/04/2019, 10/09/2017, 05/28/2017 FINDINGS:No change in right-sided chemotherapy infusion catheter and Port-A-Cath. Bibasilar infiltrates are again identified. There has been mild interval improvement. No new abnormality. No new focal pulmonary parenchymal consolidation. No evidence for congestive heart failure. Patient does have a history of COPD IMPRESSION: 1. Mildly improved bibasilar infiltrates since 01/04/2019 2. No new abnormality Interpreted and Authenticated by: Lon Bonilla 01/06/19
[2019-01-06] MEDS: IPRATROPIUM/ALBUTEROL 3 ML AMPUL.NEB NEB PRN (20:14)
[2019-01-06] MEDS: SENNOSIDES/DOCUSATE SODIUM 1 TAB TABLET PO SCH (21:32)
[2019-01-06] MEDS: traZODone HCL 100 MG TABLET PO SCH (21:34)
[2019-01-07] MEDS: 0.9 % SODIUM CHLORIDE 10 ML SYRINGE IV SCH ×3 (04:49→21:49)
[2019-01-07 05:46] LABS: Mean Cell Volume 91.3 fL (80.0-100.0); Mean Corpuscular HGB Conc 32.1 g/dL (31.0-36.0); Platelet Count 306 K/mcL (140-440); RBC 3.26 M/mcL (4.50-5.90)
[2019-01-07 06:24] LABS: ALT/SGPT 11 U/l (0-40); Albumin 2.3 gm/dL (3.2-5.2); Albumin/Globulin Ratio 0.8 (1.0-2.3); Alkaline Phosphatase 164 U/L (39-117); Bilirubin,Direct < 0.2 mg/dL (0.0-0.3); Blood Urea Nitrogen 5 mg/dl (8-23); Gamma Glutamyl Transpeptidase 50 U/L (8-61); Uric Acid 2.9 mg/dL (2.5-8.0)
[2019-01-07] MEDS: ACETAMINOPHEN 1,000 MG/100 ML BOTTLE IV PRN (07:33)
[2019-01-07] MEDS: PANTOPRAZOLE 40 MG TABLET PO SCH (07:33)
[2019-01-07 07:42] LABS: Anisocytosis 1+ (NONE SEEN); Band Neutrophils % 1 % (0-10); Basophils % (Manual) 1 % (0-2); Lymphocytes % 4 % (15-49); Monocytes % (Manual) 12 % (1-12); Platelet Estimate NORMAL (NORMAL); RBC Morphology ABNORM (NORMAL); Segmented Neutrophils % 82 % (38-78)
[2019-01-07] MEDS: DOCUSATE SODIUM 100 MG CAPSULE PO SCH (08:59)
[2019-01-07] MEDS: POTASSIUM CHLORIDE 10 MEQ TABLET PO SCH (09:00)
[2019-01-07] MEDS: FOLIC ACID 1 MG TABLET PO SCH (09:00)
[2019-01-07] MEDS: FLUoxetine HCL 20 MG CAPSULE PO SCH (09:00)
[2019-01-07] MEDS: CYANOCOBALAMIN (VITAMIN B-12) 500 MCG TABLET PO SCH ×2 (09:00→21:46)
[2019-01-07] MEDS: MULTIVIT,THER IRON,CA,FA & MIN 1 TABLET PO SCH (09:00)
[2019-01-07] MEDS: ASPIRIN 81 MG TAB.CHEW PO SCH (09:00)
[2019-01-07] MEDS: TAMSULOSIN 0.4 MG CAPSULE PO SCH (09:00)
[2019-01-07] MEDS: HEPARIN 5,000 UNIT/ML VIAL SQ SCH ×2 (09:01→21:47)
[2019-01-07] MEDS: GABAPENTIN 300 MG CAPSULE PO SCH ×2 (09:01→21:46)
[2019-01-07] MEDS: FLUTICASONE INH SCH (09:04)
[2019-01-07] MEDS: VILANTEROL INH SCH (09:04)
[2019-01-07] MEDS: UMECLIDINIUM INH SCH (09:04)
--- NOTE | 2019-01-07 11:57 | Internal Med Progress Note ---
Medical - PN: Subj Patient information: Note initiated : 01/07/19 at 11:52 am Service Date, if different from initiated Date: [] Patient: Joni Darnell 83 y/o M admitted on 01/04/19 for Weakness, General Fatigue, Diarrher. Chief Complaint: [] Interval history: Mr. Darnell is a 83 year old M who presents to ER with progressive weakness, lightheadedness, dizziness, diarrhea that have started roughly a week ago last . Patient symptoms initially started with multiple loose watery stools progressing to weakness and lightheadedness and dizziness. Patient has substantial loss of appetite. He attributes the symptoms to "bad food"that he ate with some of his female friends. Over the last week patient has been held by his friend Omega who has been taking care of him. He also endorses to fever over the last 48 hours along with incontinence episode. He would find stool in his underwear. The diarrhea did not improve despite Imodium. Notably he is undergoing chemoradiation for his metastatic lung cancer which is managed by Dr. Ureña. Also he has had a stressful week as his sustained a fracture slipping on ice and is currently at [facility] recovering from surgery. Initial workup in the ER was significant for hypotension with systolics at 70 along with potassium 3.1. Patient received crystalloids. Subsequently hospitalist service was consulted for admission in light of above He denies abdominal pain, cramping, dysuria, shortness of breath, chest pain, headache, photophobia. He further denies weight loss, leg swelling, rash or joint pain. He denies sick contacts or travel 01/05-patient doing well. Improved hypotension. No telemetry events. Potassium improved from 3.1-3.6. Tolerating diet. Diarrhea resolved. Nausea improved. Continue existing treatments. Transfer to medical floor in 24 hours. Continue aggressive rehab/dietary support. No overnight fever chills or concerns per staff 01/06-patient doing a lot better. Diarrhea resolved. On crystalloids. Hy potension resolved. Ambulating tolerating diet. No telemetry events. Transfer to medical floor. Continue nutrition and rehab support. Anticipate SNF transfer in 24 hours if clinically continues to improve. Feeling a lot stronger and near baseline. 01/07. Patient today febrile/worsening shortness of breath. Ongoing breathing treatments. Left basilar pneumonia on imaging. Continue antibiotic coverage. Discharge planning based on clinical improvement likely in 24-48 hours. - Constitutional Vitals: Vital Signs Temp Pulse Resp BP Pulse Ox 98.9 F 61 18 157/77 95 01/07/19 11:19 01/07/19 06:46 01/07/19 11:19 01/07/19 11:19 01/07/19 11:19 Period Temp Pulse Resp BP Sys/Benavides Pulse Ox Last 24 Hr 98.0 F-101 F 61-98 18-24 93-157/60-95 91-97 Intake and Output 01/06/19 01/07/19 01/07/19 21:59 05:59 13:59 Intake Total 380 170 240 Output Total 650 450 Balance -270 -280 240 Weight 165 lb 165 lb Patient Weight 01/08/19 05:59 Weight 165 lb Intake & Output: Intake & Output 01/06/19 01/07/19 01/07/19 21:59 05:59 13:59 Intake Total 380 170 240 Output Total 650 450 Balance -270 -280 240 Weight 165 lb 165 lb Intake: IV 100 Oral 280 170 240 Output: Void Amount 650 450 Other: Meal Dinner Breakfast Percent of Meal Consumed 0% 100% Feeding Ability Independent Urine Appearance Clear Clear Urine Color Bright Yellow Bright Yellow Stool Size Moderate Small Stool Color Brown Brown Stool Consistency Soft Loose # Bowel Movements 1 1 # of times incontinent of 0 Bowels General appearance: no acute distress Exam: Persistent shortness of breath Labored breathing Minimal anxiety Medical - PN: Obj Da - Labs CBC & Chem 7: 01/07/19 04:40 01/07/19 04:40 Labs: Abnormal Lab Results 01/07/19 01/07/19 01/06/19 04:40 04:40 03:33 RBC 3.26 L Hgb 9.6 L Hct 29.7 L POC Hct RDW 18.0 H Gran % Lymph % (Auto) Lymph # (Auto) Seg Neutrophils % 82 H Lymphocytes % 4 L RBC Morphology Abnorm A Anisocytosis 1+ A POC Potassium Potassium Chloride 109 H Anion Gap 7.0 L BUN 5 L 5 L Creatinine POC Creatinine Glucose 137 H 137 H POC Glucose Calcium 7.6 L 7.9 L POC WB Ioniz Calcium Phosphorus 1.5 L 1.2 L GGT 64 H Alkaline Phosphatase 164 H 191 H Lactate Dehydrogenase 263 H Myoglobin Total Protein 5.2 L Albumin 2.3 L 2.8 L Albumin/Globulin Ratio 0.8 L 0.9 L 01/06/19 01/05/19 01/05/19 03:33 03:21 03:21 RBC 3.70 L 3.13 L Hgb 11.1 L 9.3 L Hct 33.8 L 28.8 L POC Hct RDW 18.1 H 17.7 H Gran % Lymph % (Auto) Lymph # (Auto) Seg Neutrophils % 86 H 90 H Lymphocytes % 5 L 3 L RBC Morphology Abnorm A Abnorm A Anisocytosis 1+ A 1+ A POC Potassium Potassium Chloride 110 H Anion Gap BUN Creatinine POC Creatinine Glucose POC Glucose Calcium 7.6 L POC WB Ioniz Calcium Phosphorus 1.4 L GGT Alkaline Phosphatase 131 H Lactate Dehydrogenase Myoglobin Total Protein 5.0 L Albumin 2.5 L Albumin/Globulin Ratio 01/04/19 01/04/19 01/04/19 12:48 12:46 12:46 RBC 3.38 L Hgb 10.1 L Hct 30.8 L POC Hct 30.0 L RDW 17.6 H Gran % 83.5 H Lymph % (Auto) 5.3 L Lymph # (Auto) 0.3 L Seg Neutrophils % Lymphocytes % RBC Morphology Anisocytosis POC Potassium 3.1 L Potassium 3.2 L Chloride Anion Gap BUN Creatinine 1.3 H POC Creatinine 1.3 H Glucose 159 H POC Glucose 157 H Calcium 8.2 L POC WB Ioniz Calcium 1.09 L Phosphorus GGT Alkaline Phosphatase Lactate Dehydrogenase Myoglobin 294 H Total Protein 5.5 L Albumin 2.9 L Albumin/Globulin Ratio Meds: Medications Acetaminophen (Tylenol) 650 mg PO Q4-6HP PRN PRN Reason: PAIN/FEVER > 101 Albuterol Sulfate (Ventolin) 2 puff INH Q3-4HP PRN PRN Reason: BRONCHOSPASM Albuterol/Ipratropium (Duoneb) 3 ml NEB Q6HP PRN PRN Reason: Wheezing Last Admin: 01/06/19 20:14 Dose: 3 ml Documented by: Aspirin (Aspirin) 81 mg PO DAILY [facility] Last Admin: 01/07/19 09:00 Dose: 81 mg Documented by: Cyanocobalamin (Vitamin B-12) 1,000 mcg PO BID [facility] Stop: 01/09/19 09:01 Last Admin: 01/07/19 09:00 Dose: 1,000 mcg Documented by: Docusate Sodium (Colace) 100 mg PO BID [facility] Last Admin: 01/07/19 08:59 Dose: 100 mg Documented by: Fluoxetine HCl (Prozac) 20 mg PO DAILY [facility] Last Admin: 01/07/19 09:00 Dose: 20 mg Documented by: Folic Acid (Folic Acid) 1 mg PO QDAY [facility] Last Admin: 01/07/19 09:00 Dose: 1 mg Documented by: Gabapentin (Neurontin) 300 mg PO BID [facility] Last Admin: 01/07/19 09:01 Dose: 300 mg Documented by: Heparin Sodium (Porcine) (Heparin) 5,000 unit SQ Q12 [facility] Last Admin: 01/07/19 09:01 Dose: 5,000 unit Documented by: Heparin Sodium (Porcine) (Heparin Flush) 2 ml IV Q12 [facility] Last Admin: 01/07/19 09:01 Dose: 2 ml Documented by: Magnesium Sulfate (Magnesium Sulfate) 2 gm in 50 mls @ 50 mls/hr IV UD PRN PRN Reason: MG = or < 1.7 Acetaminophen (Ofirmev) 1,000 mg in 100 mls @ 200 mls/hr IV Q6HP PRN PRN Reason: PAIN/FEVER > 101 Last Admin: 01/07/19 07:33 Dose: 200 mls/hr Documented by: Iron Carb/Multivit/[place]/Folic Acid (Multivitamin W/Minerals) 1 tab PO DAILY [facility] Last Admin: 01/07/19 09:00 Dose: 1 tab Documented by: Ondansetron HCl (Zofran) 4 mg IV Q4-6HP PRN PRN Reason: Nausea And Vomiting Pantoprazole Sodium (Protonix) 40 mg PO ACB [facility] Last Admin: 01/07/19 07:33 Dose: 40 mg Documented by: Fluticasone 100 Mcg/Umeclidinium 62.5 Mcg/ Vilanterol 25 Mcg Inhaler 1 dose INH DAILY [facility] Last Admin: 01/07/19 09:04 Dose: Not Given Documented by: Potassium Chloride (Klor-Con) 40 meq PO DAILYP PRN PRN Reason: K+ < 3.5 Potassium Chloride (Kdur) 10 meq PO QAMCC [facility] Last Admin: 01/07/19 09:00 Dose: 10 meq Documented by: Senna/Docusate Sodium (Senna Plus Tablet) 1 tab PO [facility] Last Admin: 01/06/19 21:32 Dose: Not Given Documented by: Sodium Chloride (Saline Flush) 10 ml IV Q8 [facility] Last Admin: 01/07/19 04:49 Dose: 10 ml Documented by: Tamsulosin HCl (Flomax) 0.4 mg PO DAILY [facility] Last Admin: 01/07/19 09:00 Dose: 0.4 mg Documented by: Trazodone HCl (Desyrel) 100 mg PO [facility] Last Admin: 01/06/19 21:34 Dose: 100 mg Documented by: Medical - PN: A/P - Time Spent With Patient Total time spent is greater than 50% in coordination of care (as documented) at patient's floor/unit and/or counseling patient: 15 - 24 minutes (1) Hypotension Status: Acute Assessment and plan: * Left lower lobe pneumonia continue antibiotic coverage on Rocephin/azithromycin * Hypotension-likely secondary to volume depletion from persistent diarrhea and poor p.o. intake. Clinically resolved. Last echo reviewed 10/14/16-EF 65% with concentric LVH * COPD exacerbation secondary to above. Continue bronchodilators/pulmonary toilet * Low phosphorus-1.5 .start Neutra-Phos * Generalized weakness-clinically improving with ongoing rehab. Hold discharge in light of pneumonia * Diarrhea-noninfectious, resolved. Negative stool culture, C. difficile, fecal leukocyte * History of lung cancer-Currently on paclitaxel and denosumab managed at [facility] * History of chronic kidney disease-creatinine around 1 * Depression-continue home dose fluoxetine * Peripheral vascular disease on pentoxifylline * Neuropathy continue gabapentin * BPH continue tamsulosin * Full code * Prophylaxis heparin Plan * Continue bronchodilators/pulmonary toilet * Phosphorus replacement * Antibiotic coverage for pneumonia through 01/12 * Continue rehab nutrition support * Pre-existing condition management as above * Discharge to SNF once clinically improved and afebrile Current Visit: Yes Medical - PN: Qual - Stroke Symptom Onset Unknown: No - VTE Deep Vein Thrombosis/Pulmonary Embolism Present on Admission: No
[2019-01-07] MEDS: ACETAMINOPHEN 325 MG TABLET PO PRN ×2 (14:08→21:44)
--- NOTE | 2019-01-07 15:53 | Internal Med Progress Note ---
Medical - PN: Subj Patient information: Note initiated : 01/07/19 at 3:43 pm Service Date, if different from initiated Date: [] Patient: Joni Darnell 83 y/o M admitted on 01/04/19 for Weakness, General Fatigue, Diarrher. Chief Complaint: [] Interval history: Mr. Darnell is a 83 year old M who presents to ER with progressive weakness, lightheadedness, dizziness, diarrhea that have started roughly a week ago last T sday. Patient symptoms initially started with multiple loose watery stools progressing to weakness and lightheadedness and dizziness. Patient has substantial loss of appetite. He attributes the symptoms to "bad food"that he ate with some of his female friends. Over the last week patient has been held by his friend Omega who has been taking care of him. He also endorses to fever over the last 48 hours along with incontinence episode. He would find stool in his underwear. The diarrhea did not improve despite Imodium. Notably he is undergoing chemoradiation for his metastatic lung cancer which is managed by Dr. Ureña. Also he has had a stressful week as his sustained a fracture slipping on ice and is currently at [facility] recovering from surgery. Initial workup in the ER was significant for hypotension with systolics at 70 along with potassium 3.1. Patient received crystalloids. Subsequently hospitalist service was consulted for admission in light of above He denies abdominal pain, cramping, dysuria, shortness of breath, chest pain, headache, photophobia. He further denies weight loss, leg swelling, rash or joint pain. He denies sick contacts or travel 01/05-patient doing well. Improved hypotension. No telemetry events. Potassium improved from 3.1-3.6. Tolerating diet. Diarrhea resolved. Nausea improved. Continue existing treatments. Transfer to medical floor in 24 hours. Continue aggressive rehab/dietary support. No overnight fever chills or concerns per staff 01/06-patient doing a lot better. Diarrhea resolved. On crystalloids. Hyp otension resolved. Ambulating tolerating diet. No telemetry events. Transfer to medical floor. Continue nutrition and rehab support. Anticipate SNF transfer in 24 hours if clinically continues to improve. Feeling a lot stronger and near baseline. 01/07. Patient today febrile/worsening shortness of breath. Ongoing breathing treatments. Left basilar pneumonia on imaging. Continue antibiotic coverage. Discharge planning based on clinical improvement likely in 24-48 hours. 01/08 - Constitutional Vitals: Vital Signs Temp Pulse Resp BP Pulse Ox 98.9 F 61 18 157/77 95 01/07/19 11:19 01/07/19 06:46 01/07/19 11:19 01/07/19 11:19 01/07/19 11:19 Period Temp Pulse Resp BP Sys/Benavides Pulse Ox Last 24 Hr 98.0 F-101 F 61-98 18-24 93-157/60-95 91-95 Intake and Output 01/07/19 01/07/19 01/07/19 05:59 13:59 21:59 Intake Total 170 240 Output Total 450 725 Balance -280 -485 Weight 74.843 kg Patient Weight 01/08/19 05:59 Weight 74.843 kg Intake & Output: Intake & Output 01/07/19 01/07/19 01/07/19 05:59 13:59 21:59 Intake Total 170 240 Output Total 450 725 Balance -280 -485 Weight 74.843 kg Intake: Oral 170 240 Output: Void Amount 450 725 Other: Meal Breakfast Percent of Meal Consumed 100% Feeding Ability Independent Urine Appearance Clear Clear Urine Color Bright Yellow Pale Stool Size Small Stool Color Brown Stool Consistency Loose # Bowel Movements 1 # of times incontinent of 0 Bowels Exam: General: Alert, Awake, No acute Distress Eyes/N/T: EOMI, Head/Neck: neck supple, CV: RRR, No murmurs, Pulm: Abd: soft, nontender, +BS x4 Ext: no clubbing/cyanosis/edema Neuro: Alert, no focal deficits, moves all extremities, Skin: warm/dry Medical - PN: Obj Da - Labs CBC & Chem 7: 01/07/19 04:40 01/07/19 04:40 Labs: Abnormal Lab Results 01/07/19 01/07/19 01/06/19 04:40 04:40 03:33 RBC 3.26 L Hgb 9.6 L Hct 29.7 L RDW 18.0 H Seg Neutrophils % 82 H Lymphocytes % 4 L RBC Morphology Abnorm A Anisocytosis 1+ A Chloride 109 H Anion Gap 7.0 L BUN 5 L 5 L Glucose 137 H 137 H Calcium 7.6 L 7.9 L Phosphorus 1.5 L 1.2 L GGT 64 H Alkaline Phosphatase 164 H 191 H Lactate Dehydrogenase 263 H Total Protein 5.2 L Albumin 2.3 L 2.8 L Albumin/Globulin Ratio 0.8 L 0.9 L 01/06/19 01/05/19 01/05/19 03:33 03:21 03:21 RBC 3.70 L 3.13 L Hgb 11.1 L 9.3 L Hct 33.8 L 28.8 L RDW 18.1 H 17.7 H Seg Neutrophils % 86 H 90 H Lymphocytes % 5 L 3 L RBC Morphology Abnorm A Abnorm A Anisocytosis 1+ A 1+ A Chloride 110 H Anion Gap BUN Glucose Calcium 7.6 L Phosphorus 1.4 L GGT Alkaline Phosphatase 131 H Lactate Dehydrogenase Total Protein 5.0 L Albumin 2.5 L Albumin/Globulin Ratio Meds: Medications Acetaminophen (Tylenol) 650 mg PO Q4-6HP PRN PRN Reason: PAIN/FEVER > 101 Last Admin: 01/07/19 14:08 Dose: 650 mg Documented by: Albuterol Sulfate (Ventolin) 2 puff INH Q3-4HP PRN PRN Reason: BRONCHOSPASM Albuterol/Ipratropium (Duoneb) 3 ml NEB Q6HP PRN PRN Reason: Wheezing Last Admin: 01/06/19 20:14 Dose: 3 ml Documented by: Aspirin (Aspirin) 81 mg PO DAILY [facility] Last Admin: 01/07/19 09:00 Dose: 81 mg Documented by: Cyanocobalamin (Vitamin B-12) 1,000 mcg PO BID [facility] Stop: 01/09/19 09:01 Last Admin: 01/07/19 09:00 Dose: 1,000 mcg Documented by: Docusate Sodium (Colace) 100 mg PO BID [facility] Last Admin: 01/07/19 08:59 Dose: 100 mg Documented by: Fluoxetine HCl (Prozac) 20 mg PO DAILY [facility] Last Admin: 01/07/19 09:00 Dose: 20 mg Documented by: Folic Acid (Folic Acid) 1 mg PO QDAY [facility] Last Admin: 01/07/19 09:00 Dose: 1 mg Documented by: Gabapentin (Neurontin) 300 mg PO BID [facility] Last Admin: 01/07/19 09:01 Dose: 300 mg Documented by: Heparin Sodium (Porcine) (Heparin) 5,000 unit SQ Q12 [facility] Last Admin: 01/07/19 09:01 Dose: 5,000 unit Documented by: Heparin Sodium (Porcine) (Heparin Flush) 2 ml IV Q12 [facility] Last Admin: 01/07/19 09:01 Dose: 2 ml Documented by: Magnesium Sulfate (Magnesium Sulfate) 2 gm in 50 mls @ 50 mls/hr IV UD PRN PRN Reason: MG = or < 1.7 Acetaminophen (Ofirmev) 1,000 mg in 100 mls @ 200 mls/hr IV Q6HP PRN PRN Reason: PAIN/FEVER > 101 Last Admin: 01/07/19 07:33 Dose: 200 mls/hr Documented by: Iron Carb/Multivit/[place]/Folic Acid (Multivitamin W/Minerals) 1 tab PO DAILY [facility] Last Admin: 01/07/19 09:00 Dose: 1 tab Documented by: Ondansetron HCl (Zofran) 4 mg IV Q4-6HP PRN PRN Reason: Nausea And Vomiting Pantoprazole Sodium (Protonix) 40 mg PO ACB [facility] Last Admin: 01/07/19 07:33 Dose: 40 mg Documented by: Fluticasone 100 Mcg/Umeclidinium 62.5 Mcg/ Vilanterol 25 Mcg Inhaler 1 dose INH DAILY [facility] Last Admin: 01/07/19 09:04 Dose: Not Given Documented by: Potassium Chloride (Klor-Con) 40 meq PO DAILYP PRN PRN Reason: K+ < 3.5 Potassium Chloride (Kdur) 10 meq PO QAC [facility] Last Admin: 01/07/19 09:00 Dose: 10 meq Documented by: Potassium/Phosphorus/Sodium (Neutra Phos) 2 packet PO BID [facility] Senna/Docusate Sodium (Senna Plus Tablet) 1 tab PO [facility] Last Admin: 01/06/19 21:32 Dose: Not Given Documented by: Sodium Chloride (Saline Flush) 10 ml IV Q8 [facility] Last Admin: 01/07/19 14:08 Dose: 10 ml Documented by: Tamsulosin HCl (Flomax) 0.4 mg PO DAILY [facility] Last Admin: 01/07/19 09:00 Dose: 0.4 mg Documented by: Trazodone HCl (Desyrel) 100 mg PO [facility] Last Admin: 01/06/19 21:34 Dose: 100 mg Documented by: Medical - PN: A/P - Time Spent With Patient Total time spent is greater than 50% in coordination of care (as documented) at patient's floor/unit and/or counseling patient: - Narrative A/P Narrative: A: *LLL PNA: *Hypotension: likely secondary to volume depletion from persistent diarrhea and poor p.o. intake -Clinically resolved -Last echo reviewed 10/14/16-EF 65% with concentric LVH *COPD exacerbation secondary to above (): *Low phosphorus *Generalized weakness: *Diarrhea-noninfectious, resolved. Negative stool culture, C. difficile, fecal leukocyte *History of lung cancer: Currently on paclitaxel and denosumab managed at [facility] *CKD II: *Depression: continue home dose fluoxetine *Peripheral vascular disease on pentoxifylline *Neuropathy: continue gabapentin Plan: -continue antibiotic coverage on Rocephin/azithromycin, through 01/12 -pending BC -f/u PCT -Continue bronchodilators/pulmonary toilet -Phosphorus replacement -Continue rehab nutrition support -Discharge to SNF once clinically improved and afebrile -ppx: heparin full code Medical - PN: Qual - Stroke Symptom Onset Unknown: No - VTE Deep Vein Thrombosis/Pulmonary Embolism Present on Admission: No
--- NOTE | 2019-01-07 15:56 | Discharge Summary ---
Medical - DS: Prov Patient information: Note initiated : 01/07/19 at 3:53 pm Service Date, if different from initiated Date: [] Patient: Joni Darnell 83 y/o M admitted on 01/04/19 for Weakness, General Fatigue, Diarrher. Chief Complaint: [] Date of admission: 01/04/19 15:40 Primary care physician: Lon Burch Consults: 01/04/19 Consult to Physician [CONS] Stat Comment: Consulting Provider: Raz Wright Reason For Exam: Physician to Consult Medical - DS: Meds - Discharge Medications Prescriptions: Levofloxacin [Levaquin] 750 mg PO DAILY #6 tab Active and Home Medications: Home Medications cyanocobalamin (vit B-12) 1,000 mcg tablet 1,000 mcg PO .QOD tab 04/23/16 [History Confirmed 01/04/19 Last Taken 01/04/19 08:00] aspirin 81 mg tablet,delayed release 81 mg PO QDAY 07/08/17 [History Confirmed 01/04/19 Last Taken 01/04/19 08:00] folic acid 1 mg tablet 1 mg PO QDAY #90 tab 03/08/18 [Rx Confirmed 01/04/19 Last Taken 01/04/19 08:00] fluoxetine 20 mg tablet 20 mg PO DAILY #30 tab 04/20/18 [Rx Confirmed 01/04/19 Last Taken 01/04/19 08:00] ipratropium-albuterol 0.5 mg-3 mg(2.5 mg base)/3 mL nebulization soln 3 ml INHALATION Q6H PRN #90 ml 05/10/18 [Rx Confirmed 01/04/19 Last Taken Unknown] fluticasone 100 mcg-umeclid 62.5 mcg-vilant 25 mcg powd for inhalation 1 inh INHALATION QDAY #60 each 06/03/18 [Rx Confirmed 01/04/19 Last Taken Unknown] paclitaxel 6 mg/mL concentrate,intravenous 5.63 mg/m2/hr IV WEEKLY 06/14/18 [History Confirmed 01/04/19 Last Taken 12/28/18 08:00] potassium chloride ER 10 mEq tablet,extended release 10 meq PO QDAY #90 tab 06/25/18 [Rx Confirmed 01/04/19 Last Taken 01/04/19 08:00] calcium 600mg/vitamin d3 400 iu 600 mg PO QDAY 08/16/18 [History Confirmed 01/04/19 Last Taken 01/04/19 08:00] cholecalciferol (vitamin D3) 1,000 unit capsule 1,000 unit PO QDAY 08/16/18 [History Confirmed 01/04/19 Last Taken 01/04/19 08:00] pantoprazole 40 mg tablet,delayed release 40 mg PO QDAY 08/16/18 [History Confirmed 01/04/19 Last Taken 01/04/19 08:00] albuterol sulfate HFA 90 mcg/actuation aerosol inhaler 2 puff INHALATION Q3-4H PRN #18 g 08/19/18 [Rx Confirmed 01/04/19 Last Taken Unknown] Acetaminophen [Tylenol Extra Strength] 500 mg PO TID 01/04/19 [History Confirmed 01/04/19 Last Taken 01/04/19 08:00] Denosumab [Xgeva] 120 mg SC QMONTH 01/04/19 [History Confirmed 01/04/19 Last Taken Unknown] Denosumab [Xgeva] 120 mg SC QMONTH 01/04/19 [History Confirmed 01/04/19 Last Taken Unknown] Gabapentin [Neurontin] 300 mg PO TID 01/04/19 [History Confirmed 01/04/19 Last Taken 01/04/19 08:00] L.acidoph,Paracasei, B.lactis [Probiotic] 1 each PO QDAY 01/04/19 [History Confirmed 01/04/19 Last Taken 01/04/19 08:00] Tamsulosin [Flomax] 0.4 mg PO DAILY 01/04/19 [History Confirmed 01/04/19 Last Taken 01/04/19 08:00] traZODone HCL [Trazodone HCl] 100 mg PO HS 01/04/19 [History Confirmed 01/04/19 Last Taken 01/03/19 19:00] Medical - DS: Hosp Hospital course: Mr. Darnell is a 83 year old M Mr. Darnell is a 83 year old M who presents to ER with progressive weakness, lightheadedness, dizziness, diarrhea that have started roughly a week ago last . Patient symptoms initially started with multiple loose watery stools progressing to weakness and lightheadedness and dizziness. Patient has substantial loss of appetite. He attributes the symptoms to "bad food"that he ate with some of his female friends. Over the last week patient has been held by his friend Omega who has been taking care of him. He also endorses to fever over the last 48 hours along with incontinence episode. He would find stool in his underwear. The diarrhea did not improve despite Imodium. Notably he is undergoing chemoradiation for his metastatic lung cancer which is managed by Dr. Ureña. Also he has had a stressful week as his sustained a fracture slipping on ice and is currently at [facility] recovering from surgery. Initial workup in the ER was significant for hypotension with systolics at 70 along with potassium 3.1. Patient received crystalloids. Subsequently hospitalist service was consulted for admission in light of above He denies abdominal pain, cramping, dysuria, shortness of breath, chest pain, headache, photophobia. He further denies weight loss, leg swelling, rash or joint pain. He denies sick contacts or travel 01/05-patient doing well. Improved hypotension. No telemetry events. Potassium improved from 3.1-3.6. Tolerating diet. Diarrhea resolved. Nausea improved. Continue existing treatments. Transfer to medical floor in 24 hours. Continue aggressive rehab/dietary support. No overnight fever chills or concerns per staff 01/06-patient doing a lot better. Diarrhea resolved. On crystalloids. Hypotension resolved. Ambulating tolerating diet. No telemetry events. Transfer to medical floor. Continue nutrition and rehab support. Anticipate SNF transfer in 24 hours if clinically continues to improve. Feeling a lot stronger and near baseline. 01/07. Patient today febrile/worsening shortness of breath. Ongoing breathing treatments. Left basilar pneumonia on imaging. Continue antibiotic coverage. Discharge planning based on clinical improvement likely in 24-48 hours. Discharge diagnosis: Pneumonia hypertension COPD exacerbation Secondary discharge diagnosis: Generalized weakness diarrhea noninfectious history of lung cancer chronic kidney disease depression peripheral vascular disease neuropathy - Time Spent with Patient Total time spent providing and/or coordinating discharge services: Medical - DS: Exam - Constitutional Vitals: Vital Signs Temp Pulse Pulse Resp BP BP Pulse Ox 01/07/19 11:19 98.9 F 18 157/77 95 01/07/19 09:09 98.9 F 01/07/19 08:18 98.0 F 01/07/19 07:33 100.9 F H 01/07/19 06:46 100.9 F H 61 18 124/75 93 01/07/19 03:25 99.8 F H 91 H 24 H 136/81 93 01/06/19 23:25 98.4 F 71 24 H 111/74 95 01/06/19 20:22 94 01/06/19 20:21 84 18 01/06/19 19:30 98.4 F 84 24 H 93/60 94 01/06/19 18:13 99.4 F H 01/06/19 17:28 101 F H 01/06/19 17:15 101 F H 83 91 01/06/19 16:46 100.6 F H 98 H 20 121/95 91 01/06/19 16:03 95 H 24 H Intake and Output 01/07/19 01/07/19 01/07/19 05:59 13:59 21:59 Intake Total 170 240 Output Total 450 725 Balance -280 -485 Intake: Oral 170 240 Output: Void Amount 450 725 Other: Meal Breakfast Percent of Meal Consumed 100% Feeding Ability Independent Urine Appearance Clear Clear Urine Color Bright Yellow Pale Stool Size Small Stool Color Brown Stool Consistency Loose # Bowel Movements 1 # of times incontinent of 0 Bowels Weight 74.843 kg Patient Weight 01/08/19 05:59 Weight 74.843 kg Medical - DS: Data Labs on day of discharge: Labs from last 24 hours 01/07/19 01/07/19 04:40 04:40 WBC 6.6 RBC 3.26 L Hgb 9.6 L Hct 29.7 L MCV 91.3 MCH 29.3 MCHC 32.1 RDW 18.0 H Plt Count 306 MPV 9.1 Total Counted 100 Seg Neutrophils % 82 H Band Neutrophils % 1 Lymphocytes % 4 L Monocytes % (Manual) 12 Basophils % (Manual) 1 Platelet Estimate Normal RBC Morphology Abnorm A Anisocytosis 1+ A Sodium 142 Potassium 3.8 Chloride 109 H Carbon Dioxide 26 Anion Gap 7.0 L BUN 5 L Creatinine 0.9 GFR Calculation 80 Glucose 137 H Uric Acid 2.9 Calcium 7.6 L Phosphorus 1.5 L Magnesium 1.8 Total Bilirubin 0.5 Direct Bilirubin < 0.2 GGT 50 AST 12 ALT 11 Alkaline Phosphatase 164 H Lactate Dehydrogenase 193 Total Protein 5.2 L Albumin 2.3 L Globulin 2.9 Albumin/Globulin Ratio 0.8 L Triglycerides 69 Preliminary micro results at discharge 01/06/19 18:20 Sputum Culture - Preliminary Sputum - Expectorated Medical - DS: A/P - Patient/Caregiver Discharge Instructions Activity: as per physical therapy Diet: Regular Diet - Follow up Plan Follow up with: Lon Burch DO [Primary Care Provider] - Disposition: [facility] SNF Prognosis: Fair Rehab Potential: Fair I certify that the patient requires SNF services: Yes Medical - DS: Qual - VTE Deep Vein Thrombosis/Pulmonary Embolism Present on Admission: No
[2019-01-07] MEDS: AZITHROMYCIN 500 MG in DEXTROSE 5% IN WATER 250 ML IV SCH (17:53)
[2019-01-07] MEDS: ALBUTEROL SULFATE 1 PUFF INHALER INH PRN (17:55)
[2019-01-07] MEDS ORDERED: cefTRIAXone 2 GM in DEXTROSE 5% IN WATER 50 ML IV ONE (18:00)
[2019-01-07] MEDS: IPRATROPIUM/ALBUTEROL 3 ML AMPUL.NEB NEB PRN (19:14)
[2019-01-07] MEDS: NEUTRA PHOS 1 PACKET PO SCH (21:45)
[2019-01-07] MEDS: LACTOBACILLUS 1 CAPSULE PO SCH (21:47)
[2019-01-07] MEDS: traZODone HCL 100 MG TABLET PO SCH (21:47)
[2019-01-07] MEDS: SENNOSIDES/DOCUSATE SODIUM 1 TAB TABLET PO SCH (21:49)
[2019-01-08] MEDS: DOCUSATE SODIUM 100 MG CAPSULE PO SCH ×3 (01:10→22:08)
[2019-01-08 06:02] LABS: Mean Cell Volume 91.4 fL (80.0-100.0); Mean Corpuscular HGB Conc 32.2 g/dL (31.0-36.0); Platelet Count 416 K/mcL (140-440); Red Cell Distribution Width 18.2 % (11.5-14.5)
[2019-01-08 06:31] LABS: ALT/SGPT 12 U/l (0-40); Albumin 2.5 gm/dL (3.2-5.2); Albumin/Globulin Ratio 0.8 (1.0-2.3); Alkaline Phosphatase 192 U/L (39-117); Bilirubin,Direct < 0.2 mg/dL (0.0-0.3); Blood Urea Nitrogen 7 mg/dl (8-23); Gamma Glutamyl Transpeptidase 58 U/L (8-61); Uric Acid 2.9 mg/dL (2.5-8.0)
[2019-01-08 07:09] LABS: Anisocytosis 1+ (NONE SEEN); Band Neutrophils % 7 % (0-10); Lymphocytes % 14 % (15-49); Monocytes % (Manual) 14 % (1-12); Myelocytes % 1 % (0-0); Ovalocytes 1+ (NONE SEEN); Platelet Estimate NORMAL (NORMAL); RBC Morphology ABNORM (NORMAL); Segmented Neutrophils % 64 % (38-78)
[2019-01-08] MEDS: ACETAMINOPHEN 1,000 MG/100 ML BOTTLE IV PRN (07:11)
[2019-01-08] MEDS: 0.9 % SODIUM CHLORIDE 10 ML SYRINGE IV SCH ×3 (07:11→22:08)
[2019-01-08] MEDS: PANTOPRAZOLE 40 MG TABLET PO SCH (07:11)
[2019-01-08] MEDS ORDERED: VANCOMYCIN PER PHARMACY IV SCH (07:39)
--- NOTE | 2019-01-08 07:42 | Internal Med Progress Note ---
Medical - PN: Subj Patient information: Note initiated : 01/08/19 at 7:36 am Service Date, if different from initiated Date: [] Patient: Joni Darnell 83 y/o M admitted on 01/04/19 for Weakness, General Fatigue, Diarrher. Chief Complaint: [] Interval history: Mr. Darnell is a 83 year old M who presents to ER with progressive weakness, lightheadedness, dizziness, diarrhea that have started roughly a week ago last T hursday. Patient symptoms initially started with multiple loose watery stools progressing to weakness and lightheadedness and dizziness. Patient has substantial loss of appetite. He attributes the symptoms to "bad food"that he ate with some of his female friends. Over the last week patient has been held by his friend Omega who has been taking care of him. He also endorses to fever over the last 48 hours along with incontinence episode. He would find stool in his underwear. The diarrhea did not improve despite Imodium. Notably he is undergoing chemoradiation for his metastatic lung cancer which is managed by Dr. Ureña. Also he has had a stressful week as his sustained a fracture slipping on ice and is currently at [facility] recovering from surgery. Initial workup in the ER was significant for hypotension with systolics at 70 along with potassium 3.1. Patient received crystalloids. Subsequently hospitalist service was consulted for admission in light of above He denies abdominal pain, cramping, dysuria, shortness of breath, chest pain, headache, photophobia. He further denies weight loss, leg swelling, rash or joint pain. He denies sick contacts or travel 01/05-patient doing well. Improved hypotension. No telemetry events. Potassium improved from 3.1-3.6. Tolerating diet. Diarrhea resolved. Nausea improved. Continue existing treatments. Transfer to medical floor in 24 hours. Continue aggressive rehab/dietary support. No overnight fever chills or concerns per staff 01/06-patient doing a lot better. Diarrhea resolved. On crystalloids. Hyp otension resolved. Ambulating tolerating diet. No telemetry events. Transfer to medical floor. Continue nutrition and rehab support. Anticipate SNF transfer in 24 hours if clinically continues to improve. Feeling a lot stronger and near baseline. 01/07. Patient today febrile/worsening shortness of breath. Ongoing breathing treatments. Left basilar pneumonia on imaging. Continue antibiotic coverage. Discharge planning based on clinical improvement likely in 24-48 hours. 01/08 Patient slept well. Did have a fever last night is reported per vitals. However, patient did not report feeling feverish. He has a chronic cough and shortness of breath which she states is at baseline. He states the DuoNeb treatments help out. He cannot tell me if he feels better or worse for the same compared to yesterday. States has had some diarrhea Review of Systems: denies headache/fever/chills/nausea/vomiting/chest or abdominal pain. Otherwise see above. - Constitutional Vitals: Vital Signs Temp Pulse Resp BP Pulse Ox 100.7 F H 89 24 H 177/73 92 01/08/19 07:11 01/08/19 04:25 01/08/19 06:41 01/08/19 06:41 01/08/19 06:41 Period Temp Pulse Resp BP Sys/Benavides Pulse Ox Last 24 Hr 98.0 F-101.0 F 78-90 18-28 91-177/58-77 92-95 Intake and Output 01/07/19 01/08/19 01/08/19 21:59 05:59 13:59 Intake Total 500 750 Output Total 475 300 775 Balance 25 450 -775 Weight 75.296 kg Intake & Output: Intake & Output 01/07/19 01/08/19 01/08/19 21:59 05:59 13:59 Intake Total 500 750 Output Total 475 300 775 Balance 25 450 -775 Weight 75.296 kg Intake: IV 350 Zithromax 500 mg In Dextrose 5% 250 in Water 250 ml @ 250 mls/hr IV Q24H [facility] Rx#:[id number] Oral 500 400 Output: Void Amount 475 350 # of times incontinent of urine 0 Urine/Stool Mix 300 425 Other: Urine Appearance Clear Urine Color Bright Yellow Urine Odor Normal Stool Size Small Stool Color Brown Stool Consistency Liquid # Voids 1 1 # Bowel Movements 1 Exam: General: Alert, Awake, No acute Distress Eyes/N/T: EOMI, Head/Neck: neck supple, CV: RRR, No murmurs, Pulm: Slightly diminished bilaterally, mild expiratory wheezing bilaterally Abd: soft, nontender, +BS x4 Ext: no clubbing/cyanosis/edema Neuro: Alert, no focal deficits, moves all extremities, Skin: warm/dry Medical - PN: Obj Da - Labs CBC & Chem 7: 01/08/19 04:20 01/08/19 04:20 Labs: Abnormal Lab Results 01/08/19 01/08/19 01/07/19 04:20 04:20 04:40 RBC 3.40 L Hgb 10.0 L Hct 31.1 L RDW 18.2 H Seg Neutrophils % Lymphocytes % 14 L Monocytes % (Manual) 14 H Myelocytes % 1 H RBC Morphology Abnorm A Anisocytosis 1+ A Ovalocytes 1+ A Chloride 109 H Anion Gap 7.0 L BUN 7 L 5 L Glucose 111 H 137 H Calcium 7.5 L 7.6 L Phosphorus 2.1 L 1.5 L GGT Alkaline Phosphatase 192 H 164 H Lactate Dehydrogenase Total Protein 5.7 L 5.2 L Albumin 2.5 L 2.3 L Albumin/Globulin Ratio 0.8 L 0.8 L 01/07/19 01/06/19 01/06/19 04:40 03:33 03:33 RBC 3.26 L 3.70 L Hgb 9.6 L 11.1 L Hct 29.7 L 33.8 L RDW 18.0 H 18.1 H Seg Neutrophils % 82 H 86 H Lymphocytes % 4 L 5 L Monocytes % (Manual) Myelocytes % RBC Morphology Abnorm A Abnorm A Anisocytosis 1+ A 1+ A Ovalocytes Chloride Anion Gap BUN 5 L Glucose 137 H Calcium 7.9 L Phosphorus 1.2 L GGT 64 H Alkaline Phosphatase 191 H Lactate Dehydrogenase 263 H Total Protein Albumin 2.8 L Albumin/Globulin Ratio 0.9 L 01/05/19 03:21 RBC Hgb Hct RDW Seg Neutrophils % 90 H Lymphocytes % 3 L Monocytes % (Manual) Myelocytes % RBC Morphology Abnorm A Anisocytosis 1+ A Ovalocytes Chloride Anion Gap BUN Glucose Calcium Phosphorus GGT Alkaline Phosphatase Lactate Dehydrogenase Total Protein Albumin Albumin/Globulin Ratio Meds: Medications Acetaminophen (Tylenol) 650 mg PO Q4-6HP PRN PRN Reason: PAIN/FEVER > 101 Last Admin: 01/07/19 21:44 Dose: 650 mg Documented by: Albuterol Sulfate (Ventolin) 2 puff INH Q3-4HP PRN PRN Reason: BRONCHOSPASM Last Admin: 01/07/19 17:55 Dose: 2 puff Documented by: Albuterol/Ipratropium (Duoneb) 3 ml NEB Q6HP PRN PRN Reason: Wheezing Last Admin: 01/07/19 19:14 Dose: 3 ml Documented by: Aspirin (Aspirin) 81 mg PO DAILY [facility] Last Admin: 01/07/19 09:00 Dose: 81 mg Documented by: Ceftriaxone Sodium (Rocephin) 1 gm IV Q24H [facility] Cyanocobalamin (Vitamin B-12) 1,000 mcg PO BID [facility] Stop: 01/09/19 09:01 Last Admin: 01/07/19 21:46 Dose: 1,000 mcg Documented by: Docusate Sodium (Colace) 100 mg PO BID [facility] Last Admin: 01/08/19 01:10 Dose: Not Given Documented by: Fluoxetine HCl (Prozac) 20 mg PO DAILY [facility] Last Admin: 01/07/19 09:00 Dose: 20 mg Documented by: Folic Acid (Folic Acid) 1 mg PO QDAY [facility] Last Admin: 01/07/19 09:00 Dose: 1 mg Documented by: Gabapentin (Neurontin) 300 mg PO BID [facility] Last Admin: 01/07/19 21:46 Dose: 300 mg Documented by: Heparin Sodium (Porcine) (Heparin) 5,000 unit SQ Q12 [facility] Last Admin: 01/07/19 21:47 Dose: 5,000 unit Documented by: Heparin Sodium (Porcine) (Heparin Flush) 2 ml IV Q12 [facility] Last Admin: 01/07/19 21:48 Dose: 2 ml Documented by: Magnesium Sulfate (Magnesium Sulfate) 2 gm in 50 mls @ 50 mls/hr IV UD PRN PRN Reason: MG = or < 1.7 Acetaminophen (Ofirmev) 1,000 mg in 100 mls @ 200 mls/hr IV Q6HP PRN PRN Reason: PAIN/FEVER > 101 Last Admin: 01/08/19 07:11 Dose: 200 mls/hr Documented by: Azithromycin 500 mg/ Dextrose 250 mls @ 250 mls/hr IV Q24H [facility] Stop: 01/09/19 17:29 Last Infusion: 01/08/19 02:48 Dose: Infused Documented by: Iron Carb/Multivit/Rock/Folic Acid (Multivitamin W/Minerals) 1 tab PO DAILY [facility] Last Admin: 01/07/19 09:00 Dose: 1 tab Documented by: Lactobacillus Rhamnosus (Culturelle) 1 cap PO BID [facility] Last Admin: 02/15/19 21:47 Dose: 1 cap Documented by: Ondansetron HCl (Zofran) 4 mg IV Q4-6HP PRN PRN Reason: Nausea And Vomiting Pantoprazole Sodium (Protonix) 40 mg PO ACB [facility] Last Admin: 01/08/19 07:11 Dose: 40 mg Documented by: Fluticasone 100 Mcg/Umeclidinium 62.5 Mcg/ Vilanterol 25 Mcg Inhaler 1 dose INH DAILY [facility] Last Admin: 01/07/19 09:04 Dose: Not Given Documented by: Potassium Chloride (Klor-Con) 40 meq PO DAILYP PRN PRN Reason: K+ < 3.5 Potassium Chloride (Kdur) 10 meq PO QAC [facility] Last Admin: 01/07/19 09:00 Dose: 10 meq Documented by: Potassium/Phosphorus/Sodium (Neutra Phos) 2 packet PO BID [facility] Last Admin: 01/07/19 21:45 Dose: 2 packet Documented by: Senna/Docusate Sodium (Senna Plus Tablet) 1 tab PO [facility] Last Admin: 01/07/19 21:49 Dose: Not Given Documented by: Sodium Chloride (Saline Flush) 10 ml IV Q8 [facility] Last Admin: 01/08/19 07:11 Dose: 10 ml Documented by: Tamsulosin HCl (Flomax) 0.4 mg PO DAILY [facility] Last Admin: 01/07/19 09:00 Dose: 0.4 mg Documented by: Trazodone HCl (Desyrel) 100 mg PO [facility] Last Admin: 01/07/19 21:47 Dose: 100 mg Documented by: Medical - PN: A/P - Time Spent With Patient Total time spent is greater than 50% in coordination of care (as documented) at patient's floor/unit and/or counseling patient: - Narrative A/P Narrative: A: *LLL PNA: -febrile last night 101.0. *Hypotension: likely secondary to volume depletion from persistent diarrhea and poor p.o. intake -Clinically resolved -Last echo reviewed 10/14/16-EF 65% with concentric LVH *COPD exacerbation secondary to above (has O2@home but doesn't usually use): *Low phosphorus: *Generalized weakness: *Diarrhea-noninfectious, resolved. Negative stool culture, C. difficile, fecal leukocyte *History of lung cancer: Currently on paclitaxel and denosumab managed at [place] [facility] *CKD II: *Depression: continue home dose fluoxetine *Peripheral vascular disease on pentoxifylline *Neuropathy: continue gabapentin Plan: -Abx started yesterday evening. will broaden given increased PCT and fever -f/u CXR -pending BC/SC -f/u PCT -Continue bronchodilators/pulmonary toilet -Phosphorus replacement -Continue rehab nutrition support -Discharge to SNF once clinically improved and afebrile -ppx: heparin full code Medical - PN: Qual - Stroke Symptom Onset Unknown: No - VTE Deep Vein Thrombosis/Pulmonary Embolism Present on Admission: No
[2019-01-08] MEDS: IPRATROPIUM/ALBUTEROL 3 ML AMPUL.NEB NEB PRN ×2 (07:58→14:01)
--- NOTE | 2019-01-08 08:37 | XRay Report ---
INDICATION: Pneumonia. Follow-up. TECHNIQUE: PA and lateral upright chest x-ray COMPARISON: Previous examinations dated 01/06/2019, 01/04/2019, 10/09/2017 FINDINGS:Left lower lobe infiltrate and probable small effusion are slightly worse than on 01/06/2019. No focal right-sided infiltrate. Continued radiographic follow-up is recommended. IMPRESSION: 1. Left lower lobe infiltrate and small effusion 2. Slight interval worsening since 01/06/2019 Interpreted and Authenticated by: Lon Bonilla 01/08/19
[2019-01-08] MEDS: PIPERACILLIN SODIUM/TAZOBACTAM 3.375 GM in DEXTROSE 5% IN WATER 50 ML IV SCH ×3 (08:43→18:12)
[2019-01-08] MEDS: LACTOBACILLUS 1 CAPSULE PO SCH ×2 (08:46→22:06)
[2019-01-08] MEDS: TAMSULOSIN 0.4 MG CAPSULE PO SCH (08:46)
[2019-01-08] MEDS: FOLIC ACID 1 MG TABLET PO SCH (08:47)
[2019-01-08] MEDS: MULTIVIT,THER IRON,CA,FA & MIN 1 TABLET PO SCH (08:47)
[2019-01-08] MEDS: FLUoxetine HCL 20 MG CAPSULE PO SCH (08:47)
[2019-01-08] MEDS: ASPIRIN 81 MG TAB.CHEW PO SCH (08:47)
[2019-01-08] MEDS: CYANOCOBALAMIN (VITAMIN B-12) 500 MCG TABLET PO SCH ×2 (08:47→22:07)
[2019-01-08] MEDS: POTASSIUM CHLORIDE 10 MEQ TABLET PO SCH (08:47)
[2019-01-08] MEDS: GABAPENTIN 300 MG CAPSULE PO SCH ×2 (08:47→22:06)
[2019-01-08] MEDS: HEPARIN 5,000 UNIT/ML VIAL SQ SCH ×2 (08:49→22:05)
[2019-01-08] MEDS: NEUTRA PHOS 1 PACKET PO SCH ×2 (08:52→22:07)
[2019-01-08] MEDS: UMECLIDINIUM INH SCH (08:53)
[2019-01-08] MEDS: FLUTICASONE INH SCH (08:53)
[2019-01-08] MEDS: VILANTEROL INH SCH (08:53)
[2019-01-08] MEDS ORDERED: cefTRIAXone 1 GM VIAL IV SCH (09:00)
[2019-01-08] MEDS ORDERED: predniSONE 20 MG TABLET PO ONE (09:36)
[2019-01-08] MEDS: VANCOMYCIN 1,500 MG in 0.9 % SODIUM CHLORIDE 500 ML IV SCH (10:09)
[2019-01-08] MEDS: LOPERAMIDE 2 MG CAPSULE PO PRN ×2 (10:27→19:40)
[2019-01-08] MEDS ORDERED: DEXTROSE 50% 50 ML VIAL IV PRN (11:19)
[2019-01-08] MEDS ORDERED: DEXTROSE 31 GM ORAL.SUSP PO PRN (11:19)
[2019-01-08] MEDS: INSULIN LISPRO 1 UNIT/0.01 ML UNIT SQ SCH ×3 (12:05→22:19)
[2019-01-08] MEDS: AZITHROMYCIN 500 MG in DEXTROSE 5% IN WATER 250 ML IV SCH (13:10)
[2019-01-08] MEDS: ACETAMINOPHEN 325 MG TABLET PO PRN ×2 (15:44→22:06)
[2019-01-08] MEDS: traZODone HCL 100 MG TABLET PO SCH (22:06)
[2019-01-08] MEDS: SENNOSIDES/DOCUSATE SODIUM 1 TAB TABLET PO SCH (22:08)
[2019-01-09] MEDS: PIPERACILLIN SODIUM/TAZOBACTAM 3.375 GM in DEXTROSE 5% IN WATER 50 ML IV SCH ×4 (01:22→18:01)
[2019-01-09] MEDS: INSULIN LISPRO 1 UNIT/0.01 ML UNIT SQ SCH ×6 (01:41→20:25)
[2019-01-09] MEDS: LOPERAMIDE 2 MG CAPSULE PO PRN ×4 (04:26→20:22)
[2019-01-09 05:58] LABS: Blood Urea Nitrogen 8 mg/dl (8-23)
[2019-01-09] MEDS: 0.9 % SODIUM CHLORIDE 10 ML SYRINGE IV SCH ×3 (06:09→21:01)
[2019-01-09] MEDS: PANTOPRAZOLE 40 MG TABLET PO SCH (07:24)
--- NOTE | 2019-01-09 08:05 | Internal Med Progress Note ---
Medical - PN: Subj Patient information: Note initiated : 01/09/19 at 7:59 am Service Date, if different from initiated Date: [] Patient: Joni Darnell 83 y/o M admitted on 01/04/19 for Weakness, General Fatigue, Diarrher. Chief Complaint: [] Interval history: Mr. Darnell is a 83 year old M who presents to ER with progressive weakness, lightheadedness, dizziness, diarrhea that have started roughly a week ago last T hursday. Patient symptoms initially started with multiple loose watery stools progressing to weakness and lightheadedness and dizziness. Patient has substantial loss of appetite. He attributes the symptoms to "bad food"that he ate with some of his female friends. Over the last week patient has been held by his friend Omega who has been taking care of him. He also endorses to fever over the last 48 hours along with incontinence episode. He would find stool in his underwear. The diarrhea did not improve despite Imodium. Notably he is undergoing chemoradiation for his metastatic lung cancer which is managed by Dr. Ureña. Also he has had a stressful week as his sustained a fracture slipping on ice and is currently at [facility] recovering from surgery. Initial workup in the ER was significant for hypotension with systolics at 70 along with potassium 3.1. Patient received crystalloids. Subsequently hospitalist service was consulted for admission in light of above He denies abdominal pain, cramping, dysuria, shortness of breath, chest pain, headache, photophobia. He further denies weight loss, leg swelling, rash or joint pain. He denies sick contacts or travel 01/05-patient doing well. Improved hypotension. No telemetry events. Potassium improved from 3.1-3.6. Tolerating diet. Diarrhea resolved. Nausea improved. Continue existing treatments. Transfer to medical floor in 24 hours. Continue aggressive rehab/dietary support. No overnight fever chills or concerns per staff 01/06-patient doing a lot better. Diarrhea resolved. On crystalloids. Hyp otension resolved. Ambulating tolerating diet. No telemetry events. Transfer to medical floor. Continue nutrition and rehab support. Anticipate SNF transfer in 24 hours if clinically continues to improve. Feeling a lot stronger and near baseline. 01/07. Patient today febrile/worsening shortness of breath. Ongoing breathing treatments. Left basilar pneumonia on imaging. Continue antibiotic coverage. Discharge planning based on clinical improvement likely in 24-48 hours. 01/08 Patient slept well. Did have a fever last night is reported per vitals. However, patient did not report feeling feverish. He has a chronic cough and shortness of breath which she states is at baseline. He states the DuoNeb treatments help out. He cannot tell me if he feels better or worse for the same compared to yesterday. States has had some diarrhea 01/09 Feeling better. Slept well. No fevers or chills. States his cough and shortness of breath is baseline. Still having some diarrhea. Review of Systems: denies headache/fever/chills/nausea/vomiting/chest or abdominal pain. Otherwise see above. - Constitutional Vitals: Vital Signs Temp Pulse Resp BP Pulse Ox 98.2 F 89 24 H 148/82 92 01/09/19 06:37 01/09/19 04:00 01/09/19 06:37 01/09/19 04:00 01/09/19 06:37 Period Temp Pulse Resp BP Sys/Benavides Pulse Ox Last 24 Hr 97.6 F-98.2 F 66-89 18-24 106-148/63-82 92-95 Intake and Output 01/08/19 01/09/19 01/09/19 21:59 05:59 13:59 Intake Total 610 500 50 Output Total 1025 1500 Balance -415 -1000 50 Weight 76.657 kg Intake & Output: Intake & Output 01/08/19 01/09/19 01/09/19 21:59 05:59 13:59 Intake Total 610 500 50 Output Total 1025 1500 Balance -415 -1000 50 Weight 76.657 kg Intake: IV 300 50 50 Zithromax 500 mg In Dextrose 5% 250 in Water 250 ml @ 250 mls/hr IV Q24H [facility] Rx#:[id number] Zosyn 3.375 gm In Dextrose 5% 50 50 50 in Water 50 ml @ 100 mls/hr IV Q6H [facility] Rx#:[id number] Oral 310 450 Output: Void Amount 725 800 Urine/Stool Mix 300 700 Other: Urine Appearance Clear Clear Urine Color Straw Pale Urine Odor Normal Normal Stool Size Moderate Stool Color Brown Brown Black Stool Consistency Liquid Liquid Loose Watery Loose # Voids 1 1 1 # Bowel Movements 1 1 Exam: General: Alert, Awake, No acute Distress Eyes/N/T: EOMI, Head/Neck: neck supple, CV: RRR, No murmurs, Pulm: Slightly diminished bilaterally, mild expiratory wheezing bilaterally sli ghtly improved Abd: soft, nontender, +BS x4 Ext: no clubbing/cyanosis/edema Neuro: Alert, no focal deficits, moves all extremities, Skin: warm/dry Medical - PN: Obj Da - Labs CBC & Chem 7: 01/08/19 04:20 01/09/19 04:30 Labs: Abnormal Lab Results 01/09/19 01/08/19 01/08/19 04:30 04:20 04:20 RBC 3.40 L Hgb 10.0 L Hct 31.1 L RDW 18.2 H Seg Neutrophils % Lymphocytes % 14 L Monocytes % (Manual) 14 H Myelocytes % 1 H RBC Morphology Abnorm A Anisocytosis 1+ A Ovalocytes 1+ A Chloride 109 H Anion Gap BUN 7 L Glucose 144 H 111 H Calcium 7.5 L 7.5 L Phosphorus 2.1 L Alkaline Phosphatase 192 H Total Protein 5.7 L Albumin 2.5 L Albumin/Globulin Ratio 0.8 L 01/07/19 01/07/19 04:40 04:40 RBC 3.26 L Hgb 9.6 L Hct 29.7 L RDW 18.0 H Seg Neutrophils % 82 H Lymphocytes % 4 L Monocytes % (Manual) Myelocytes % RBC Morphology Abnorm A Anisocytosis 1+ A Ovalocytes Chloride 109 H Anion Gap 7.0 L BUN 5 L Glucose 137 H Calcium 7.6 L Phosphorus 1.5 L Alkaline Phosphatase 164 H Total Protein 5.2 L Albumin 2.3 L Albumin/Globulin Ratio 0.8 L Meds: Medications Acetaminophen (Tylenol) 650 mg PO Q4-6HP PRN PRN Reason: PAIN/FEVER > 101 Last Admin: 01/08/19 22:06 Dose: 650 mg Documented by: Albuterol Sulfate (Ventolin) 2 puff INH Q3-4HP PRN PRN Reason: BRONCHOSPASM Last Admin: 01/07/19 17:55 Dose: 2 puff Documented by: Albuterol/Ipratropium (Duoneb) 3 ml NEB Q6HP PRN PRN Reason: Wheezing Last Admin: 01/08/19 14:01 Dose: 3 ml Documented by: Aspirin (Aspirin) 81 mg PO DAILY [facility] Last Admin: 01/08/19 08:47 Dose: 81 mg Documented by: Cyanocobalamin (Vitamin B-12) 1,000 mcg PO BID [facility] Stop: 01/09/19 09:01 Last Admin: 01/08/19 22:07 Dose: 1,000 mcg Documented by: Dextrose (Dextrose 50%) 0 ml IV UD PRN PRN Reason: Hypoglycemia Diagnostic Test (Pha) (Accu-Chek) 1 each FS Q4H [facility] Last Admin: 01/09/19 07:24 Dose: 1 each Documented by: Docusate Sodium (Colace) 100 mg PO BID [facility] Last Admin: 01/08/19 22:08 Dose: Not Given Documented by: Fluoxetine HCl (Prozac) 20 mg PO DAILY [facility] Last Admin: 01/08/19 08:47 Dose: 20 mg Documented by: Folic Acid (Folic Acid) 1 mg PO QDAY [facility] Last Admin: 01/08/19 08:47 Dose: 1 mg Documented by: Gabapentin (Neurontin) 300 mg PO BID [facility] Last Admin: 01/08/19 22:06 Dose: 300 mg Documented by: Glucose (Insta-Glucose) 15 gm PO PRN PRN PRN Reason: Hypoglycemia Heparin Sodium (Porcine) (Heparin) 5,000 unit SQ Q12 [facility] Last Admin: 01/08/19 22:05 Dose: 5,000 unit Documented by: Heparin Sodium (Porcine) (Heparin Flush) 2 ml IV Q12 [facility] Last Admin: 01/08/19 22:05 Dose: 2 ml Documented by: Magnesium Sulfate (Magnesium Sulfate) 2 gm in 50 mls @ 50 mls/hr IV UD PRN PRN Reason: MG = or < 1.7 Acetaminophen (Ofirmev) 1,000 mg in 100 mls @ 200 mls/hr IV Q6HP PRN PRN Reason: PAIN/FEVER > 101 Last Infusion: 01/08/19 09:54 Dose: Infused Documented by: Azithromycin 500 mg/ Dextrose 250 mls @ 250 mls/hr IV Q24H [facility] Stop: 01/09/19 17:29 Last Infusion: 01/08/19 14:38 Dose: Infused Documented by: Piperacillin Sod/Tazobactam (Sod 3.375 gm/ Dextrose) 50 mls @ 100 mls/hr IV Q6H [facility] Last Infusion: 01/09/19 06:38 Dose: Infused Documented by: Vancomycin HCl 1,500 mg/ (Sodium Chloride) 500 mls @ 333.3 mls/hr IV Q24H [facility] Last Infusion: 01/08/19 13:11 Dose: Infused Documented by: Insulin Human Lispro (Humalog) 0 unit SQ Q4H [facility]; Protocol Last Admin: 01/09/19 07:36 Dose: 2 units Documented by: Iron Carb/Multivit/Medical Sociologist/Folic Acid (Multivitamin W/Minerals) 1 tab PO DAILY [facility] Last Admin: 01/08/19 08:47 Dose: 1 tab Documented by: Lactobacillus Rhamnosus (Culturelle) 1 cap PO BID [facility] Last Admin: 01/08/19 22:06 Dose: 1 cap Documented by: Loperamide HCl (Imodium) 2 mg PO PRN PRN PRN Reason: Diarrhea Last Admin: 01/09/19 04:26 Dose: 2 mg Documented by: Ondansetron HCl (Zofran) 4 mg IV Q4-6HP PRN PRN Reason: Nausea And Vomiting Pantoprazole Sodium (Protonix) 40 mg PO ACB [facility] Last Admin: 01/09/19 07:24 Dose: 40 mg Documented by: Fluticasone 100 Mcg/Umeclidinium 62.5 Mcg/ Vilanterol 25 Mcg Inhaler 1 dose INH DAILY [facility] Last Admin: 01/08/19 08:53 Dose: Not Given Documented by: Potassium Chloride (Klor-Con) 40 meq PO DAILYP PRN PRN Reason: K+ < 3.5 Last Admin: 01/08/19 22:07 Dose: 40 meq Documented by: Potassium Chloride (Kdur) 10 meq PO [facility] Last Admin: 01/08/19 08:47 Dose: 10 meq Documented by: Potassium/Phosphorus/Sodium (Neutra Phos) 2 packet PO BID [facility] Last Admin: 01/08/19 22:07 Dose: 2 packet Documented by: Prednisone (Prednisone) 40 mg PO [facility] Stop: 01/10/19 08:01 Senna/Docusate Sodium (Senna Plus Tablet) 1 tab PO [facility] Last Admin: 01/08/19 22:08 Dose: Not Given Documented by: Sodium Chloride (Saline Flush) 10 ml IV Q8 [facility] Last Admin: 01/09/19 06:09 Dose: 10 ml Documented by: Tamsulosin HCl (Flomax) 0.4 mg PO DAILY [facility] Last Admin: 01/08/19 08:46 Dose: 0.4 mg Documented by: Trazodone HCl (Desyrel) 100 mg PO HS [facility] Last Admin: 01/08/19 22:06 Dose: 100 mg Documented by: Vancomycin HCl (Vancomycin Per Pharmacy) 1 order IV UD [facility] Medical - PN: A/P - Time Spent With Patient Total time spent is greater than 50% in coordination of care (as documented) at patient's floor/unit and/or counseling patient: - Narrative A/P Narrative: A: *LLL PNA: -afebrile last night -SC neg -PCT now trending down *Hypotension: likely secondary to volume depletion from persistent diarrhea and poor p.o. intake -resolved -Last echo reviewed 10/14/16-EF 65% with concentric LVH *COPD exacerbation secondary to above (has O2@home but doesn't usually use): *Low phosphorus: *Generalized weakness: *Diarrhea-noninfectious, resolved. Negative stool culture, C. difficile, fecal leukocyte *History of lung cancer: Currently on paclitaxel and denosumab managed at [facility] *CKD II: *Depression: continue home dose fluoxetine *Peripheral vascular disease on pentoxifylline *Neuropathy: continue gabapentin Plan: -cont Abx -f/u CXR -pending BC/SC -f/u PCT -Continue bronchodilators/pulmonary toilet -steroid wean -Phosphorus replacement - -Continue rehab nutrition support -Discharge to SNF likely on Thursday -ppx: heparin full code Medical - PN: Qual - Stroke Symptom Onset Unknown: No - VTE Deep Vein Thrombosis/Pulmonary Embolism Present on Admission: No
--- NOTE | 2019-01-09 09:17 | XRay Report ---
INDICATION: Pneumonia. Fatigue. Weakness. TECHNIQUE: PA and lateral upright chest x-ray COMPARISON: Previous chest x-rays dated 01/08/2019, 01/06/2019, 01/04/2019 FINDINGS:No change in right-sided Port-A-Cath. Gestational markings remain diffusely prominent. Persistent left lower lobe infiltrate is consistent with pneumonia. Findings are essentially unchanged since 01/08/2019. IMPRESSION: 1. Diffuse interstitial abnormality. 2. Left lower lobe infiltrate consistent with pneumonia. No significant interval change since 01/08/2019 Interpreted and Authenticated by: Lon Bonilla 01/09/19
[2019-01-09] MEDS: NEUTRA PHOS 1 PACKET PO SCH ×2 (09:54→20:57)
[2019-01-09] MEDS: GABAPENTIN 300 MG CAPSULE PO SCH ×2 (09:55→21:00)
[2019-01-09] MEDS: ASPIRIN 81 MG TAB.CHEW PO SCH (09:55)
[2019-01-09] MEDS: LACTOBACILLUS 1 CAPSULE PO SCH ×2 (09:55→21:00)
[2019-01-09] MEDS: CYANOCOBALAMIN (VITAMIN B-12) 500 MCG TABLET PO SCH (09:55)
[2019-01-09] MEDS: FLUoxetine HCL 20 MG CAPSULE PO SCH (09:55)
[2019-01-09] MEDS: MULTIVIT,THER IRON,CA,FA & MIN 1 TABLET PO SCH (09:55)
[2019-01-09] MEDS: POTASSIUM CHLORIDE 10 MEQ TABLET PO SCH (09:55)
[2019-01-09] MEDS: HEPARIN 5,000 UNIT/ML VIAL SQ SCH ×2 (09:56→20:58)
[2019-01-09] MEDS: TAMSULOSIN 0.4 MG CAPSULE PO SCH (09:56)
[2019-01-09] MEDS: FOLIC ACID 1 MG TABLET PO SCH (09:56)
[2019-01-09] MEDS: predniSONE 20 MG TABLET PO SCH (09:56)
[2019-01-09] MEDS: VANCOMYCIN 1,500 MG in 0.9 % SODIUM CHLORIDE 500 ML IV SCH (09:58)
[2019-01-09] MEDS: FLUTICASONE INH SCH (09:58)
[2019-01-09] MEDS: UMECLIDINIUM INH SCH (09:58)
[2019-01-09] MEDS: VILANTEROL INH SCH (09:58)
[2019-01-09] MEDS ORDERED: POTASSIUM PHOSPHATE 40 MEQ in DEXTROSE 5% IN WATER 500 ML IV ONE (11:20)
[2019-01-09] MEDS: AZITHROMYCIN 500 MG in DEXTROSE 5% IN WATER 250 ML IV SCH (11:48)
--- NOTE | 2019-01-09 12:48 | Discharge Summary ---
Medical - DS: Prov Patient information: Note initiated : 01/09/19 at 12:44 pm Service Date, if different from initiated Date: [] Patient: Joni Darnell 83 y/o M admitted on 01/04/19 for Weakness, General Fatigue, Diarrher. Chief Complaint: [] Date of admission: 01/04/19 15:40 Discharge date: 01/10/19 Primary care physician: Lon Burch Consults: 01/04/19 Consult to Physician [CONS] Stat Comment: Consulting Provider: Raz Wright Reason For Exam: Physician to Consult Medical - DS: Meds - Discharge Medications Prescriptions: Lactobacillus [Culturelle] 1 cap PO BID #60 cap Levofloxacin [Levaquin] 750 mg PO DAILY #2 tab predniSONE [Prednisone] 20 mg PO DAILY #3 tablet Active and Home Medications: Home Medications cyanocobalamin (vit B-12) 1,000 mcg tablet 1,000 mcg PO .QOD tab 04/23/16 [History Confirmed 01/04/19 Last Taken 01/04/19 08:00] aspirin 81 mg tablet,delayed release 81 mg PO QDAY 07/08/17 [History Confirmed 01/04/19 Last Taken 01/04/19 08:00] folic acid 1 mg tablet 1 mg PO QDAY #90 tab 03/08/18 [Rx Confirmed 01/04/19 Last Taken 01/04/19 08:00] fluoxetine 20 mg tablet 20 mg PO DAILY #30 tab 04/20/18 [Rx Confirmed 01/04/19 Last Taken 01/04/19 08:00] ipratropium-albuterol 0.5 mg-3 mg(2.5 mg base)/3 mL nebulization soln 3 ml INHALATION Q6H PRN #90 ml 05/10/18 [Rx Confirmed 01/04/19 Last Taken Unknown] fluticasone 100 mcg-umeclid 62.5 mcg-vilant 25 mcg powd for inhalation 1 inh INHALATION QDAY #60 each 06/03/18 [Rx Confirmed 01/04/19 Last Taken Unknown] paclitaxel 6 mg/mL concentrate,intravenous 5.63 mg/m2/hr IV WEEKLY 06/14/18 [History Confirmed 01/04/19 Last Taken 12/28/18 08:00] potassium chloride ER 10 mEq tablet,extended release 10 meq PO QDAY #90 tab 06/25/18 [Rx Confirmed 01/04/19 Last Taken 01/04/19 08:00] calcium 600mg/vitamin d3 400 iu 600 mg PO QDAY 08/16/18 [History Confirmed 01/04/19 Last Taken 01/04/19 08:00] cholecalciferol (vitamin D3) 1,000 unit capsule 1,000 unit PO QDAY 08/16/18 [History Confirmed 01/04/19 Last Taken 01/04/19 08:00] pantoprazole 40 mg tablet,delayed release 40 mg PO QDAY 08/16/18 [History Confirmed 01/04/19 Last Taken 01/04/19 08:00] albuterol sulfate HFA 90 mcg/actuation aerosol inhaler 2 puff INHALATION Q3-4H PRN #18 g 08/19/18 [Rx Confirmed 01/04/19 Last Taken Unknown] Acetaminophen [Tylenol Extra Strength] 500 mg PO TID 01/04/19 [History Confirmed 01/04/19 Last Taken 01/04/19 08:00] Denosumab [Xgeva] 120 mg SC QMONTH 01/04/19 [History Confirmed 01/04/19 Last Taken Unknown] Denosumab [Xgeva] 120 mg SC QMONTH 01/04/19 [History Confirmed 01/04/19 Last Taken Unknown] Gabapentin [Neurontin] 300 mg PO TID 01/04/19 [History Confirmed 01/04/19 Last Taken 01/04/19 08:00] L.acidoph,Paracasei, B.lactis [Probiotic] 1 each PO QDAY 01/04/19 [History Conf irmed 01/04/19 Last Taken 01/04/19 08:00] Tamsulosin [Flomax] 0.4 mg PO DAILY 01/04/19 [History Confirmed 01/04/19 Last Taken 01/04/19 08:00] traZODone HCL [Trazodone HCl] 100 mg PO HS 01/04/19 [History Confirmed 01/04/19 Last Taken 01/03/19 19:00] Levofloxacin [Levaquin] 750 mg PO DAILY #6 tab 01/07/19 [Rx Last Taken Unknown] Medical - DS: Hosp Hospital course: Mr. Darnell is a 83 year old M Mr. Darnell is a 83 year old M who presents to ER with progressive weakness, lightheadedness, dizziness, diarrhea that have started roughly a week ago last . Patient symptoms initially started with multiple loose watery stools progressing to weakness and lightheadedness and dizziness. Patient has substantial loss of appetite. He attributes the symptoms to "bad food"that he ate with some of his female friends. Over the last week patient has been held by his friend Omega who has been taking care of him. He also endorses to fever over the last 48 h ours along with incontinence episode. He would find stool in his underwear. The diarrhea did not improve despite Imodium. Notably he is undergoing chemoradiation for his metastatic lung cancer which is managed by Dr. Ureña. Also he has had a stressful week as his sustained a fracture slipping on ice and is currently at [facility] recovering from surgery. Initial workup in the ER was significant for hypotension with systolics at 70 along with potassium 3.1. Patient received crystalloids. Subsequently hospitalist service was consulted for admission in light of above He denies abdominal pain, cramping, dysuria, shortness of breath, chest pain, headache, photophobia. He further denies weight loss, leg swelling, rash or joint pain. He denies sick contacts or travel 01/05-patient doing well. Improved hypotension. No telemetry events. Potassium improved from 3.1-3.6. Tolerating diet. Diarrhea resolved. Nausea improved. Continue existing treatments. Transfer to medical floor in 24 hours. Continue aggressive rehab/dietary support. No overnight fever chills or concerns per staff 01/06-patient doing a lot better. Diarrhea resolved. On crystalloids. Hypotension resolved. Ambulating tolerating diet. No telemetry events. Transfer to medical floor. Continue nutrition and rehab support. Anticipate SNF transfer in 24 hours if clinically continues to improve. Feeling a lot stronger and near baseline. 01/07. Patient today febrile/worsening shortness of breath. Ongoing breathing treatments. Left basilar pneumonia on imaging. Continue antibiotic coverage. Discharge planning based on clinical improvement likely in 24-48 hours. 01/08 Patient slept well. Did have a fever last night is reported per vitals. However, patient did not report feeling feverish. He has a chronic cough and shortness of breath which she states is at baseline. He states the DuoNeb treatments help out. He cannot tell me if he feels better or worse for the same compared to yesterday. States has had some diarrhea 01/09 Feeling better. Slept well. No fevers or chills. States his cough and shortness of breath is baseline. Still having some diarrhea. 01/10 Tired but continues to feel better. Been afebrile for the past 48 hours doing well. Stable for discharge Discharge diagnosis: Left side pneumonia hypertension COPD exacerbation diarrhea Secondary discharge diagnosis: Lung cancer chronic kidney disease stage II depression peripheral vascular disease generalized weakness neuropathy - Time Spent with Patient Total time spent providing and/or coordinating discharge services: Greater than 30 minutes Medical - DS: Exam - Constitutional Vitals: Vital Signs Temp Pulse Pulse Resp BP BP Pulse Ox 01/09/19 11:37 98.8 F 24 H 126/84 95 01/09/19 06:37 98.2 F 24 H 92 01/09/19 04:00 97.7 F 89 22 148/82 95 01/09/19 00:10 97.6 F 66 20 109/71 95 01/08/19 20:04 97.8 F 79 22 106/63 94 01/08/19 15:21 98.1 F 20 130/64 93 01/08/19 14:05 76 18 Intake and Output 01/08/19 01/09/19 01/09/19 21:59 05:59 13:59 Intake Total 610 500 50 Output Total 1025 1500 200 Balance -415 -1000 -150 Intake: IV 300 50 50 Zithromax 500 mg In Dextrose 5% 250 in Water 250 ml @ 250 mls/hr IV Q24H [facility] Rx#:[id number] Zosyn 3.375 gm In Dextrose 5% 50 50 50 in Water 50 ml @ 100 mls/hr IV Q6H [facility] Rx#:[id number] Oral 310 450 Output: Void Amount 725 800 200 Urine/Stool Mix 300 700 Other: Urine Appearance Clear Clear Urine Color Straw Pale Urine Odor Normal Normal Stool Size Moderate Stool Color Brown Brown Black Stool Consistency Liquid Liquid Loose Watery Loose # Voids 1 1 1 # Bowel Movements 1 1 Weight 76.657 kg Medical - DS: Data Labs on day of discharge: Labs from last 24 hours 01/09/19 01/09/19 01/09/19 04:30 04:30 04:30 Sodium 142 Potassium 4.0 Chloride 109 H Carbon Dioxide 23 Anion Gap 10.0 BUN 8 Creatinine 1.0 GFR Calculation 70 Glucose 144 H Calcium 7.5 L Phosphorus 1.7 L Procalcitonin 0.54 Preliminary micro results at discharge 01/06/19 18:40 Blood Culture - Preliminary Blood 01/06/19 18:36 Blood Culture - Preliminary Blood Medical - DS: A/P - Patient/Caregiver Discharge Instructions Activity: as per physical therapy Diet: Regular Diet Prescriptions: Lactobacillus [Culturelle] 1 cap PO BID #60 cap Levofloxacin [Levaquin] 750 mg PO DAILY #2 tab predniSONE [Prednisone] [facility] [place] - Follow up Plan Follow up with: Lon Burch DO [Primary Care Provider] - Disposition: Xfer SNF Prognosis: Fair Rehab Potential: Fair I certify that the patient requires SNF services: Yes Overall status at discharge: patient is progressing back to baseline Medical - DS: Qual - VTE Deep Vein Thrombosis/Pulmonary Embolism Present on Admission: No
[2019-01-09] MEDS: ACETAMINOPHEN 325 MG TABLET PO PRN ×2 (15:48→20:59)
[2019-01-09] MEDS: IPRATROPIUM/ALBUTEROL 3 ML AMPUL.NEB NEB PRN (20:31)
[2019-01-09] MEDS: traZODone HCL 100 MG TABLET PO SCH (20:55)
[2019-01-09] MEDS: SENNOSIDES/DOCUSATE SODIUM 1 TAB TABLET PO SCH (21:01)
[2019-01-10] MEDS: INSULIN LISPRO 1 UNIT/0.01 ML UNIT SQ SCH ×3 (00:30→07:06)
[2019-01-10] MEDS: PIPERACILLIN SODIUM/TAZOBACTAM 3.375 GM in DEXTROSE 5% IN WATER 50 ML IV SCH ×2 (00:31→05:33)
[2019-01-10] MEDS: LOPERAMIDE 2 MG CAPSULE PO PRN (03:19)
[2019-01-10 05:54] LABS: ALT/SGPT 23 U/l (0-40); Albumin 2.7 gm/dL (3.2-5.2); Albumin/Globulin Ratio 0.9 (1.0-2.3); Alkaline Phosphatase 180 U/L (39-117); Bilirubin,Direct < 0.2 mg/dL (0.0-0.3); Blood Urea Nitrogen 8 mg/dl (8-23); Gamma Glutamyl Transpeptidase 63 U/L (8-61); Uric Acid 1.9 mg/dL (2.5-8.0)
[2019-01-10] MEDS: 0.9 % SODIUM CHLORIDE 10 ML SYRINGE IV SCH (06:49)
[2019-01-10] MEDS: PANTOPRAZOLE 40 MG TABLET PO SCH (07:14)
[2019-01-10] MEDS: predniSONE 20 MG TABLET PO SCH (08:21)
[2019-01-10] MEDS: POTASSIUM CHLORIDE 10 MEQ TABLET PO SCH (08:21)
[2019-01-10] MEDS: TAMSULOSIN 0.4 MG CAPSULE PO SCH (08:21)
[2019-01-10] MEDS: NEUTRA PHOS 1 PACKET PO SCH (08:21)
[2019-01-10] MEDS: FLUTICASONE INH SCH (08:22)
[2019-01-10] MEDS: VILANTEROL INH SCH (08:22)
[2019-01-10] MEDS: UMECLIDINIUM INH SCH (08:22)
[2019-01-10] MEDS: LACTOBACILLUS 1 CAPSULE PO SCH (08:22)
[2019-01-10] MEDS: FLUoxetine HCL 20 MG CAPSULE PO SCH (08:22)
[2019-01-10] MEDS: GABAPENTIN 300 MG CAPSULE PO SCH (08:22)
[2019-01-10] MEDS: FOLIC ACID 1 MG TABLET PO SCH (08:22)
[2019-01-10] MEDS: ASPIRIN 81 MG TAB.CHEW PO SCH (08:22)
[2019-01-10] MEDS: MULTIVIT,THER IRON,CA,FA & MIN 1 TABLET PO SCH (08:22)
[2019-01-10] MEDS: ALBUTEROL SULFATE 1 PUFF INHALER INH PRN (08:22)
[2019-01-10] MEDS: HEPARIN 5,000 UNIT/ML VIAL SQ SCH (08:26)
[2019-01-10] MEDS ORDERED: HEPARIN SODIUM,PORCINE/PF 500 UNIT/5 ML SYRINGE IV ONE (08:56)
[2019-01-10] MEDS: VANCOMYCIN 1,500 MG in 0.9 % SODIUM CHLORIDE 500 ML IV SCH (09:25)
== END 2019-01-10 11:41 | DRG 190 ==
LOC: ED 12:12 → ICU 15:40 → MEDSUR 01-06 19:31
PROVIDERS: ADMIT Internal Medicine; ATTEND Internal Medicine

== ENCOUNTER 2019-02-17 05:00 | Inpatient (IN) ==
[2019-02-17] MEDS ORDERED: IPRATROPIUM/ALBUTEROL 3 ML AMPUL.NEB NEB ONE (05:27)
--- NOTE | 2019-02-17 05:47 | XRay Report ---
INDICATION: History of lung cancer. Dyspnea. TECHNIQUE: AP chest x-ray,portable semiupright COMPARISON: Previous examinations dated 01/09/2019, 01/08/2019, 01/06/2019 FINDINGS:No change in right-sided Port-A-Cath There is diffuse interstitial abnormality which is chronic. There is mild right lower lobe infiltrate. There is extensive left lower lobe infiltrate which is significantly worse than on previous examination. Findings may be due to pneumonia. Lymphangitic spread of metastases are possible. Clinical correlation follow-up radiographs are necessary. IMPRESSION: 1. Chronic interstitial abnormality 2. Increased infiltrates. Mild focal infiltrate at the right lung base. Extensive left lung infiltrates progression since 01/09/2019 3. Findings may be due to pneumonia but lymphangitic spread of metastases should be considered Interpreted and Authenticated by: Lon Bonilla 02/17/19
[2019-02-17 06:23] LABS: Basophils # (Auto) 0 K/mcL (0.0-0.3); Basophils % (Auto) 0 % (0.0-2.0); Eosinophils # (Auto) 0 K/mcL (0.0-0.7); Eosinophils % (Auto) 0 % (0.0-7.0); Lymphocytes # (Auto) 0.4 K/mcL (1.5-4.8); Lymphocytes % (Auto) 2.3 % (15.5-49.0); Mean Cell Volume 89.5 fL (80.0-100.0); Mean Corpuscular HGB Conc 32.2 g/dL (31.0-36.0); Monocytes # (Auto) 0.4 K/mcL (0.1-0.9); Monocytes % (Auto) 2.7 % (1.0-12.0); Platelet Count 555 K/mcL (140-440); RBC 4.13 M/mcL (4.50-5.90); Red Cell Distribution Width 18.5 % (11.5-14.5)
[2019-02-17 06:35] LABS: ALT/SGPT 7 U/l (0-40); Albumin 2.8 gm/dL (3.2-5.2); Albumin/Globulin Ratio 0.9 (1.0-2.3); Alkaline Phosphatase 130 U/L (39-117); Blood Urea Nitrogen 9 mg/dl (8-23)
[2019-02-17] MEDS ORDERED: cefTRIAXone 1 GM VIAL IV ONE (06:37)
[2019-02-17] MEDS ORDERED: LEVOFLOXACIN 750 MG/150 ML BAG IV ONE (06:37)
--- NOTE | 2019-02-17 06:44 | Emergency Department Note ---
General Adult HPI - General Chief complaint: Shortness of Breath/Dyspnea Stated complaint: shortness of breath, chest pain Time Seen by Provider: 02/17/19 06:35 Source: patient Mode of arrival: EMS Limitations: no limitations - History of Present Illness HPI Narrative: This patient has been ill for the last 2 days coughing up a lot of green phlegm with left-sided chest pain and shortness of breath and low-grade temperature. He was admitted to the hospital 6 weeks ago with pneumonia. He does have a history of COPD and does not use oxygen normally. His saturations are in the mid 80s off oxygen and he has responded to 3 breathing treatments. He does have lung cancer and has been getting chemotherapy for the last 3 years. - Related Data Home Medications Medication Instructions Recorded Confirmed cyanocobalamin (vit B-12) 1,000 1,000 mcg PO .QOD tab 04/23/16 02/17/19 mcg tablet aspirin 81 mg tablet,delayed 81 mg PO QDAY 07/08/17 02/17/19 release paclitaxel 6 mg/mL 5.63 mg/m2/hr IV WEEKLY 06/14/18 02/17/19 concentrate,intravenous calcium 600mg/vitamin d3 400 iu 600 mg PO QDAY 08/16/18 02/17/19 cholecalciferol (vitamin D3) 1,000 1,000 unit PO QDAY 08/16/18 02/17/19 unit capsule pantoprazole 40 mg tablet,delayed 40 mg PO QDAY 08/16/18 02/17/19 release Acetaminophen [Tylenol Extra 500 mg PO TID 01/04/19 02/17/19 Strength] Denosumab [Xgeva] 120 mg SC QMONTH 01/04/19 02/17/19 Denosumab [Xgeva] 120 mg SC QMONTH 01/04/19 02/17/19 Gabapentin [Neurontin] 300 mg PO TID 01/04/19 02/17/19 L.acidoph,Paracasei, B.lactis 1 each PO QDAY 01/04/19 02/17/19 [Probiotic] Tamsulosin [Flomax] 0.4 mg PO DAILY 01/04/19 02/17/19 traZODone HCL [Trazodone HCl] 100 mg PO HS 01/04/19 02/17/19 Previous Rx's Medication Instructions Recorded folic acid 1 mg tablet 1 mg PO QDAY #90 tab 03/08/18 fluoxetine 20 mg tablet 20 mg PO DAILY #30 tab 04/20/18 ipratropium-albuterol 0.5 mg-3 3 ml INHALATION Q6H PRN #90 ml 05/10/18 mg(2.5 mg base)/3 mL nebulization soln fluticasone fur. 100 mcg-umeclid 1 inh INHALATION QDAY #60 each 06/03/18 62.5 mcg-vilant 25 mcg inhalat.powder potassium chloride ER 10 mEq 10 meq PO QDAY #90 tab 06/25/18 tablet,extended release albuterol sulfate HFA 90 2 puff INHALATION Q3-4H PRN #18 g 08/19/18 mcg/actuation aerosol inhaler Lactobacillus [Culturelle] 1 cap PO BID #60 cap 01/09/19 Allergies Allergy/AdvReac Type Severity Reaction Status Date / Time spironolactone Allergy Unknown Unknown Verified 02/17/19 05:09 carvedilol AdvReac Mild Nausea Verified 02/17/19 05:09 fish oil AdvReac Mild Nausea Verified 02/17/19 05:09 Review of Systems All systems ED: reviewed and negative except as stated. Past Medical History - Past Medical History PMF Narrative: Medical History (Last Reviewed 10/13/17 @ 12:55 by Sandy Nguyễn RN) Lung cancer (Chronic) Pneumothorax after biopsy (Acute) COPD (chronic obstructive pulmonary disease) (Chronic) Essential hypertension (Chronic) Hyperlipidemia (Chronic) Vitamin D deficiency (Chronic) Vitamin B 12 deficiency (Chronic) Peripheral neuropathy (Chronic) Homocystinemia (Chronic) History of tobacco use (Chronic) Tuberculosis (Chronic) Gallbladder problem (Chronic) Depression (Chronic) Arthritis (Chronic) Acid reflux (Chronic) Past Surgical History (Last Reviewed 10/13/17 @ 12:55 by Sandy Nguyễn RN) H/O sinus surgery (Chronic) History of appendectomy (Chronic) History of cholecystectomy (Chronic) History of colonoscopy (Chronic) Hx of cataract surgery (Chronic) Status post surgery (Chronic) Family History (Last Reviewed 10/13/17 @ 12:55 by Sandy Nguyễn RN) Mother Malignant neoplasm of breast Father Pulmonary emphysema Malignant neoplasm of throat Sister Malignant neoplasm of endometrium Medical history: Reports: cancer (Lung, 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 Episode 20 years ago of acute renal failure.). Denies: coronary artery disease, CVA, DM, hypertension, myocardial infarction, thyroid disease, TIA Psychiatric history: Reports: anxiety. Denies: depression Surgical history ED: Reports: no surgical history - Social History smoking status: Former smoker Alcohol use: Reports: None Physical Exam Limitations: no limitations General appearance: alert Head: atraumatic Eye: Present: normal appearance ENT: normal exam Neck: Present: normal inspection Chest: Present: normal inspection Respiratory: Present: rales/crackles Cardiovascular: Present: regular rate, normal rhythm, normal heart sounds Abdominal: Present: soft. Absent: distention, tenderness Neurological: Present: alert Psychiatric: Present: normal affect Skin: Present: warm, dry Course Vital Signs Temperature 99.5 F H 02/17/19 05:04 Pulse Rate 130 H 02/17/19 05:04 Respiratory Rate 24 H 02/17/19 05:04 Blood Pressure 142/92 02/17/19 05:04 Pulse Oximetry (%) 86 L 02/17/19 05:04 Temperature 99.5 F H 02/17/19 05:04 Pulse Rate 109 H 02/17/19 06:38 Respiratory Rate 23 H 02/17/19 06:38 Blood Pressure 135/79 02/17/19 06:31 Pulse Oximetry (%) 94 02/17/19 06:38 Medical Decision Making - MDM Narrative Medical decision making narrative: Patient appears to have pneumonia especially in the left lower lung field. White count was elevated. We did blood cultures and started Levaquin and Rocephin. - Lab Data Lab results reviewed: Yes I reviewed the patient's lab results. Result diagrams: 02/17/19 05:36 02/17/19 05:36 Lab Results 02/17/19 02/17/19 02/17/19 Range/Units 05:36 05:36 05:36 WBC 16.7 H (4.5-11.0) K/mcL RBC 4.13 L (4.50-5.90) M/mcL Hgb 11.9 L (13.5-16.5) g/dL Hct 36.9 L (41.0-55.0) % MCV 89.5 (80.0-100.0) fL MCH 28.8 (26.0-34.0) pg MCHC 32.2 (31.0-36.0) g/dL RDW 18.5 H (11.5-14.5) % Plt Count 555 H (140-440) K/mcL MPV 8.3 (7.4-10.4) fL Gran % 95.0 H (38.0-78.0) % Lymph % (Auto) 2.3 L (15.5-49.0) % [place] % (Auto) 2.7 (1.0-12.0) % Eos % (Auto) 0 (0.0-7.0) % Baso % (Auto) 0 (0.0-2.0) % Gran # 15.9 H (1.8-8.0) K/mcL Lymph # (Auto) 0.4 L (1.5-4.8) K/mcL [place] # (Auto) 0.4 (0.1-0.9) K/mcL Eos # (Auto) 0 (0.0-0.7) K/mcL Baso # (Auto) 0 (0.0-0.3) K/mcL VBG Lactic Acid 1.8 (0.5-2.0) mmol/L Sodium 140 (133-145) mmol/L Potassium 4.2 (3.3-5.1) mmol/L Chloride 102 (96-108) mmol/L Carbon Dioxide 21 L (22-30) mmol/L Anion Gap 17.0 H (8-16) BUN 9 (8-23) mg/dl Creatinine 1.0 (0.7-1.2) mg/dl GFR Calculation 70 Glucose 168 H (70-105) mg/dL Calcium 8.2 L (8.6-10.4) mg/dl Total Bilirubin 0.7 (0.0-1.0) mg/dL AST 12 (0-37) U/l ALT 7 (0-40) U/l Alkaline Phosphatase 130 H (39-117) U/L Total Protein 6.0 (5.9-8.4) gm/dL Albumin 2.8 L (3.2-5.2) gm/dL Globulin 3.2 (2.2-3.7) gm/dL Albumin/Globulin Ratio 0.9 L (1.0-2.3) - Radiology Data Radiology results reviewed: Yes I reviewed the patient's radiology results. Disposition Pt seen by [employer]/PA only: No Clinical Impression: Community acquired pneumonia Disposition: Xfer As Inpt ([facility]) Condition: Fair Referrals: Lon Burch DO [Primary Care Provider] - Time of Disposition: 06:44
[2019-02-17] MEDS ORDERED: LACTATED RINGERS 1,000 ML IV SCH ×2 (07:00→11:02)
--- NOTE | 2019-02-17 10:56 | Internal Med History&Physical ---
Medical - H&P: [facility] Patient information: Note initiated : 02/17/19 at 10:53 am Service Date, if different from initiated Date: [] Patient: Joni Darnell 83 y/o M admitted on 02/17/19 for SOB, Chest Pain. Chief Complaint: [] History of present illness: Mr. Darnell is a 83 year old M With history of lung cancer and recent admission to the hospital for pneumonia 6 weeks ago. He has been [facility] in a jail facility since [facility]. He states that last week he started developing left chest wall pleuritic chest pain sharp. Several days later he developed a productive cough of green sputum and shortness of breath. The symptoms continued and seemed to worsen. Today he is pleuritic chest pain and shortness of breath was so severe that he required coming to the hospital. In the ER he was tachypneic and tachycardic and workup revealed left lung pneumonia. He was hypoxic initially at 86% on room air. He received 3 nebulizer treatments with improvement in his oxygenation, but still appeared labored. His lactate was okay. Had a leukocytosis. He describes the chest wall pain as the left on the side of his chest and and sharp and is worse when he coughs or take a deep breath. Reports headaches and fevers. Review of Systems: Pertinent positives as above. Denies nausea/vomiting/abdominal pain/no diarrhea today but had some earlier in the week. Many 10 point review of systems reviewed negative Medical - H&P: PMH Medical history: Medical History (Last Reviewed 10/13/17 @ 12:55 by Sandy Nguyễn RN) Lung cancer (Chronic) Pneumothorax after biopsy (Acute) COPD (chronic obstructive pulmonary disease) (Chronic) Essential hypertension (Chronic) Hyperlipidemia (Chronic) Vitamin D deficiency (Chronic) Vitamin B 12 deficiency (Chronic) Peripheral neuropathy (Chronic) Homocystinemia (Chronic) History of tobacco use (Chronic) Tuberculosis (Chronic) Gallbladder problem (Chronic) Depression (Chronic) Arthritis (Chronic) Acid reflux (Chronic) Past Surgical History (Last Reviewed 10/13/17 @ 12:55 by Sandy Nguyễn RN) H/O sinus surgery (Chronic) History of appendectomy (Chronic) History of cholecystectomy (Chronic) History of colonoscopy (Chronic) Hx of cataract surgery (Chronic) Status post surgery (Chronic) Family History (Last Reviewed 10/13/17 @ 12:55 by Sandy Nguyễn RN) Mother Malignant neoplasm of breast Father Pulmonary emphysema Malignant neoplasm of throat Sister Malignant neoplasm of endometrium Social History (Last Updated 08/16/18 @ 16:07 by Kwaku Lamb MD) Quit smoking 2006 Denies alcohol use Ambulates with walker Has been living at a jail facility since being discharged from the hospital 6 weeks ago Medical - H&P: Meds Home Medications Medication Instructions Recorded Confirmed Type cyanocobalamin (vit B-12) 1,000 1,000 mcg PO .QOD tab 04/23/16 02/17/19 History mcg tablet aspirin 81 mg tablet,delayed 81 mg PO QDAY 07/08/17 02/17/19 History release folic acid 1 mg tablet 1 mg PO QDAY #90 tab 03/08/18 02/17/19 Rx fluoxetine 20 mg tablet 20 mg PO DAILY #30 tab 04/20/18 02/17/19 Rx ipratropium-albuterol 0.5 mg-3 3 ml INHALATION Q6H PRN #90 ml 05/10/18 02/17/19 Rx mg(2.5 mg base)/3 mL nebulization soln fluticasone fur. 100 mcg-umeclid 1 inh INHALATION QDAY #60 each 06/03/18 02/17/19 Rx 62.5 mcg-vilant 25 mcg inhalat.powder paclitaxel 6 mg/mL 5.63 mg/m2/hr IV WEEKLY 06/14/18 02/17/19 History concentrate,intravenous potassium chloride ER 10 mEq 10 meq PO QDAY #90 tab 06/25/18 02/17/19 Rx tablet,extended release calcium 600mg/vitamin d3 400 iu 600 mg PO QDAY 08/16/18 02/17/19 History cholecalciferol (vitamin D3) 1,000 1,000 unit PO QDAY 08/16/18 02/17/19 History unit capsule pantoprazole 40 mg tablet,delayed 40 mg PO QDAY 08/16/18 02/17/19 History release albuterol sulfate HFA 90 2 puff INHALATION Q3-4H PRN #18 g 08/19/18 02/17/19 Rx mcg/actuation aerosol inhaler Acetaminophen [Tylenol Extra 500 mg PO TID 01/04/19 02/17/19 History Strength] Denosumab [Xgeva] 120 mg SC QMONTH 01/04/19 02/17/19 History Denosumab [Xgeva] 120 mg SC QMONTH 01/04/19 02/17/19 History Gabapentin [Neurontin] 300 mg PO TID 01/04/19 02/17/19 History L.acidoph,Paracasei, B.lactis 1 each PO QDAY 01/04/19 02/17/19 History [Probiotic] Tamsulosin [Flomax] 0.4 mg PO DAILY 01/04/19 02/17/19 History traZODone HCL [Trazodone HCl] 100 mg PO HS 01/04/19 02/17/19 History Lactobacillus [Culturelle] 1 cap PO BID #60 cap 01/09/19 02/17/19 Rx Allergies Allergy/AdvReac Type Severity Reaction Status Date / Time spironolactone Allergy Unknown Unknown Verified 02/17/19 05:09 carvedilol AdvReac Mild Nausea Verified 02/17/19 05:09 fish oil AdvReac Mild Nausea Verified 02/17/19 05:09 Medical - H&P: Exam - Constitutional Vitals: Temp Pulse Resp BP Pulse Ox 98.7 F 99 H 22 137/71 91 02/17/19 08:00 02/17/19 08:00 02/17/19 08:00 02/17/19 08:00 02/17/19 08:00 Exam: General: Alert, Awake, No acute Distress Eyes/N/T: EOMI, PEERL, DMM Head/Neck: neck supple, normocephalic atraumatic CV: RRR, No murmurs, normal s1/s2 Pulm: Bilateral wheezing, mild rhonchi on the left, prolonged expiratory phase, labored abd: soft, nontender, +BS x4 Ext: no clubbing/cyanosis/edema Neuro: Alert, no focal deficits, moves all extremities, CN 2-12 grossly intact, symmetrical strength b/l upper/lower, sensations intact b/l upper/lower Skin: warm/dry Medical - H&P: Reslt - Labs CBC & Chem 7: 02/17/19 05:36 02/17/19 05:36 Labs: Short CBC 02/17/19 Range/Units 05:36 WBC 16.7 H (4.5-11.0) K/mcL Hgb 11.9 L (13.5-16.5) g/dL Hct 36.9 L (41.0-55.0) % Plt Count 555 H (140-440) K/mcL BMP 02/17/19 05:36 Sodium 140 Potassium 4.2 Chloride 102 Carbon Dioxide 21 L BUN 9 Creatinine 1.0 Glucose 168 H Calcium 8.2 L Liver Function 02/17/19 Range/Units 05:36 Total Bilirubin 0.7 (0.0-1.0) mg/dL AST 12 (0-37) U/l ALT 7 (0-40) U/l Alkaline Phosphatase 130 H (39-117) U/L Albumin 2.8 L (3.2-5.2) gm/dL - Impressions Chest x-ray with chronic changes as well as infiltrate worsening on the left since previous imaging Medical - H&P: A/P - Narrative A/P Narrative: A: *Pneumonia (LLL): -PSI score high *Sepsis based on SIRS, not qSofa: *Acute on chronic hypoxic respiratory failure: Improving with nebulizer treatments *AECOPD(has home oxygen but does not typically use): *Lung cancer: Right side and follows with Dr. Lane, receives chemotherapy *Immunocompromised as patient is receiving chemotherapy *PVD: *Neuropathy: *Anemia, chronic: *Generalized weakness/deconditioning: Ambulate with a walker and resides at a jail facility *Depression: * P: -IV fluids -Azithromycin/cefepime -Sputum cultures pending, blood cultures pending -Respiratory viral panel pending and pro-calcitonin pending -Steroids (wean) -Nebs/IS/Acapella/RT -Follow-up chest CT in the morning - -PT/OT -ppx: Lovenox DNR
[2019-02-17] MEDS ORDERED: MAGNESIUM SULFATE 2 GM/50 ML BAG IV PRN (11:02)
[2019-02-17] MEDS ORDERED: methylPREDNISolone SOD SUCC 125 MG/2 ML VIAL IV ONE (11:02)
[2019-02-17] MEDS ORDERED: POTASSIUM CHLORIDE 20 MEQ TABLET PO PRN ×2 (11:02)
[2019-02-17] MEDS ORDERED: POLYETHYLENE GLYCOL 3350 17 GM PACKET PO PRN (11:02)
[2019-02-17] MEDS ORDERED: [UNRECOGNIZED DRUG - OTHER] IV SCH (11:02)
[2019-02-17] MEDS ORDERED: ONDANSETRON 4 MG/2 ML VIAL IV PRN (11:02)
[2019-02-17] MEDS ORDERED: ACETAMINOPHEN 325 MG TABLET PO PRN (11:02)
[2019-02-17] MEDS ORDERED: PACLITAXEL IV SCH (11:02)
[2019-02-17] MEDS ORDERED: POTASSIUM CHLORIDE 40 MEQ in DEXTROSE 5% IN WATER 500 ML IV PRN (11:02)
[2019-02-17] MEDS ORDERED: cefTRIAXone 1 GM in DEXTROSE 5% IN WATER 50 ML IV SCH (11:02)
[2019-02-17] MEDS ORDERED: PROCHLORPERAZINE 10 MG/2 ML VIAL IV PRN (11:02)
[2019-02-17] MEDS ORDERED: AZITHROMYCIN 500 MG in DEXTROSE 5% IN WATER 250 ML IV ONE (12:00)
[2019-02-17] MEDS: CEFEPIME 2 GM VIAL IV SCH ×2 (12:48→21:19)
[2019-02-17] MEDS: IPRATROPIUM/ALBUTEROL 3 ML AMPUL.NEB NEB SCH ×2 (14:39→19:35)
[2019-02-17] MEDS: 0.9 % SODIUM CHLORIDE 10 ML SYRINGE IV SCH ×2 (14:51→21:20)
[2019-02-17] MEDS: GABAPENTIN 300 MG CAPSULE PO SCH ×2 (16:05→20:09)
[2019-02-17] MEDS: traZODone HCL 100 MG TABLET PO SCH (20:09)
[2019-02-17] MEDS: LACTOBACILLUS 1 CAPSULE PO SCH (20:09)
[2019-02-17] MEDS: methylPREDNISolone SOD SUCC 40 MG/ML VIAL IV SCH (20:09)
[2019-02-18] MEDS: IPRATROPIUM/ALBUTEROL 3 ML AMPUL.NEB NEB SCH ×4 (01:45→18:21)
[2019-02-18] MEDS: CEFEPIME 2 GM VIAL IV SCH ×3 (05:22→21:34)
[2019-02-18] MEDS: 0.9 % SODIUM CHLORIDE 10 ML SYRINGE IV SCH ×3 (05:22→21:06)
[2019-02-18 05:56] LABS: Basophils # (Auto) 0 K/mcL (0.0-0.3); Basophils % (Auto) 0 % (0.0-2.0); Eosinophils # (Auto) 0 K/mcL (0.0-0.7); Eosinophils % (Auto) 0 % (0.0-7.0); Granulocytes % (Auto) 98.9 % (38.0-78.0); Lymphocytes # (Auto) 0.1 K/mcL (1.5-4.8); Lymphocytes % (Auto) 0.8 % (15.5-49.0); Mean Cell Volume 90.3 fL (80.0-100.0); Mean Corpuscular HGB Conc 32.2 g/dL (31.0-36.0); Monocytes # (Auto) 0 K/mcL (0.1-0.9); Monocytes % (Auto) 0.3 % (1.0-12.0); Platelet Count 421 K/mcL (140-440); RBC 3.42 M/mcL (4.50-5.90); Red Cell Distribution Width 18.5 % (11.5-14.5)
[2019-02-18 07:07] LABS: ALT/SGPT 5 U/l (0-40); Albumin 2.4 gm/dL (3.2-5.2); Albumin/Globulin Ratio 0.9 (1.0-2.3); Alkaline Phosphatase 98 U/L (39-117); Bilirubin,Direct < 0.2 mg/dL (0.0-0.3); Blood Urea Nitrogen 12 mg/dl (8-23); Gamma Glutamyl Transpeptidase 24 U/L (8-61); Uric Acid 4.5 mg/dL (2.5-8.0)
--- NOTE | 2019-02-18 07:11 | Internal Med Progress Note ---
Medical - PN: Subj Patient information: Note initiated : 02/18/19 at 7:07 am Service Date, if different from initiated Date: [] Patient: Joni Darnell 83 y/o M admitted on 02/17/19 for SOB, Chest Pain. Chief Complaint: [] Interval history: With history of lung cancer and recent admission to the hospital for pneumonia 6 weeks ago. He has been residing in a alf facility since discharge. He states that last week he started developing left chest wall pleuritic chest pain sharp. Several days later he developed a productive cough of green sputum and shortness of breath. The symptoms continued and seemed to worsen. Today he is pleuritic chest pain and shortness of breath was so severe that he req uired coming to the hospital. In the ER he was tachypneic and tachycardic and workup revealed left lung pneumonia. He was hypoxic initially at 86% on room air. He received 3 nebulizer treatments with improvement in his oxygenation, but still appeared labored. His lactate was okay. Had a leukocytosis. He describes the chest wall pain as the left on the side of his chest and and sharp and is worse when he coughs or take a deep breath. Reports headaches and fevers. 02/18 Slept well. Left chest wall pain improving. Still quite short of breath but better than yesterday. Starting to work with physical therapy right now. No overnight events. Unable to cough up any sputum sample. Review of Systems: denies headache/fever/chills/nausea/vomiting/chest or abdominal pain/diarrhea. Otherwise see above. - Constitutional Vitals: Vital Signs Temp Pulse Resp BP Pulse Ox 98.6 F 91 H 20 126/79 93 02/18/19 03:25 02/18/19 07:00 02/18/19 07:00 02/18/19 03:25 02/18/19 07:01 Period Temp Pulse Resp BP Sys/Benavides Pulse Ox Last 24 Hr 97.1 F-98.9 F 67-116 - 126-172/71-96 90-99 Intake and Output 02/17/19 02/18/19 02/18/19 21:59 05:59 13:59 Intake Total 180 50 Output Total 575 275 Balance -395 -225 Weight 66.86 kg Intake & Output: Intake & Output 02/17/19 02/18/1902/18/19 21:59 05:59 13:59 Intake Total 180 50 Output Total 575 131 Balance -395 -225 Weight 66.86 kg Intake: Oral 180 50 Output: Void Amount 575 275 Other: Meal Dinner Percent of Meal Consumed 0% Urine Appearance Clear Clear Urine Color Bright Yellow Bright Yellow Exam: General: Alert, Awake, No acute Distress Eyes/N/T: EOMI, Head/Neck: neck supple, CV: RRR, No murmurs, Pulm: Diminished bilaterally, bilateral wheezing, somewhat labored abd: soft, nontender, +BSx4 Ext: no clubbing/cyanosis/edema Neuro: Alert, no focal deficits, moves all extremities, Skin: warm/dry Medical - PN: Obj Da - Labs CBC & Chem 7: 02/18/19 04:38 02/18/19 04:38 Labs: Abnormal Lab Results 02/18/19 02/17/19 02/17/19 04:38 05:36 05:36 WBC 16.7 H RBC 3.42 L 4.13 L Hgb 9.9 L 11.9 L Hct 30.9 L 36.9 L RDW 18.5 H 18.5 H Plt Count 555 H Gran % 98.9 H 95.0 H Lymph % (Auto) 0.8 L 2.3 L [place] % (Auto) 0.3 L Gran # 9.6 H 15.9 H Lymph # (Auto) 0.1 L 0.4 L [place] # (Auto) 0 L Carbon Dioxide 21 L Anion Gap 17.0 H Glucose 168 H Calcium 8.2 L Alkaline Phosphatase 130 H Albumin 2.8 L Albumin/Globulin Ratio 0.9 L Meds: Medications Acetaminophen (Tylenol) 650 mg PO Q6HP PRN PRN Reason: PAIN/FEVER > 101 Albuterol/Ipratropium (Duoneb) 3 ml NEB Q6HRT [facility] Last Admin: 02/18/19 06:56 Dose: 3 ml Documented by: Aspirin (Aspirin) 81 mg PO DAILY [facility] Azithromycin (Zithromax) 500 mg PO DAILY [facility] Stop: 02/19/19 09:01 Cefepime HCl (Maxipime) 2 gm IV Q8H [facility]; Protocol Last Admin: 02/18/19 05:22 Dose: 2 gm Documented by: Enoxaparin Sodium (Lovenox) 40 mg SQ DAILY [facility] Fluoxetine HCl (Prozac) 20 mg PO DAILY [facility] Folic Acid (Folic Acid) 1 mg PO QDAY [facility] Gabapentin (Neurontin) 300 mg PO TID [facility] Last Admin: 02/17/19 20:09 Dose: 300 mg Documented by: Potassium Chloride 40 meq/ (Dextrose) 520 mls @ 130 mls/hr IV ONCE PRN PRN Reason: Potassium < 3 Magnesium Sulfate (Magnesium Sulfate) 2 gm in 50 mls @ 50 mls/hr IV ONCE PRN PRN Reason: Magnesium </= 1.6 Lactobacillus Rhamnosus (Culturelle) 1 cap PO BID [facility] Last Admin: 02/17/19 20:09 Dose: 1 cap Documented by: Methylprednisolone Sodium Succinate (Solu-Medrol) 40 mg IV Q12 [facility] Last Admin: 02/17/19 20:09 Dose: 40 mg Documented by: Morphine Sulfate (Morphine) 0 mg IV Q3HP PRN PRN Reason: Pain Ondansetron HCl (Zofran) 4 mg IV Q4HP PRN PRN Reason: Nausea And Vomiting Last Admin: 02/17/19 13:00 Dose: 4 mg Documented by: Pantoprazole Sodium (Protonix) 40 mg PO QAMAC [facility] Fluticasone Furoate/Umeclidinium/Vilanterol 100/62.5/25 Mcg Inhaler 1 dose INH QDAY [facility] Polyethylene Glycol (Miralax) 17 gm PO DAILYP PRN PRN Reason: Constipation Potassium Chloride (Kdur) 40 meq PO ONCE PRN PRN Reason: Potssium is 3-3.5 Potassium Chloride (Kdur) 40 meq PO ONCE PRN PRN Reason: Potassium < 3 Potassium Chloride (Kdur) 10 meq PO QAMCC [facility] Prochlorperazine (Compazine) 10 mg IV Q6HP PRN PRN Reason: Nausea And Vomiting Sodium Chloride (Saline Flush) 10 ml IV Q8 [facility] Last Admin: 02/18/19 05:22 Dose: 10 ml Documented by: Tamsulosin HCl (Flomax) 0.4 mg PO DAILY [facility] Trazodone HCl (Desyrel) 100 mg PO HS [facility] Last Admin: 02/17/19 20:09 Dose: 100 mg Documented by: Medical - PN: A/P - Time Spent With Patient Total time spent is greater than 50% in coordination of care (as documented) at patient's floor/unit and/or counseling patient: - Narrative A/P Narrative: A: *Pneumonia (LLL): -PSI score high *Sepsis based on SIRS, not qSofa: -leukocytosis improved, PCT improving *Acute on chronic hypoxic respiratory failure: Improving with nebulizer treatments *AECOPD(has home oxygen but does not typically use): *Lung cancer: Right side and follows with Dr. Lane, receives chemotherapy *Immunocompromised as patient is receiving chemotherapy *PVD: *Neuropathy: *Anemia, chronic: *Generalized weakness/deconditioning: Ambulates with a walker and resides at a alf facility *Depression: * P: -Azithromycin/cefepime -Sputum cultures pending, blood cultures pending -Respiratory viral panel pending -PCT trending -Steroids (wean) -Nebs/IS/Acapella/RT -Follow-up chest CT in the morning - -PT/OT -ppx: Lovenox
[2019-02-18] MEDS: POTASSIUM CHLORIDE 10 MEQ TABLET PO SCH (07:43)
[2019-02-18] MEDS: PANTOPRAZOLE 40 MG TABLET PO SCH (07:43)
[2019-02-18] MEDS ORDERED: IOPAMIDOL 100 ML BOTTLE IV ONE (08:36)
--- NOTE | 2019-02-18 09:14 | Cat Scan Report ---
CLINICAL INFORMATION: History of lung cancer. Probable pneumonia COMPARISON: Chest x-ray dated 02/17/2019. Previous chest CT scan dated 04/11/1716 TECHNIQUE: Axial contrast enhanced images through the chest. Sagittally and coronally reformatted images. MIP reformatted images. 80 mL contrast material injected intravenously. FINDINGS: Spiculated right upper lobe pulmonary parenchymal mass is unchanged in size and appearance since 04/18/2016. There is centrilobular emphysema within the right lung. There is a small focal subpleural density in the right upper lobe at the minor fissure. This is nonspecific and may represent scarring or atelectasis. There is a 9 mm right middle lobe noncalcified pulmonary parenchymal nodule which is larger than on 04/18/2016. There is focal infiltrate or atelectasis in the posterior basilar segment of the right lower lobe. The loculated air and fluid within the right major fissure has resolved. Focal mass right lower lobe has also resolved. Left lung is diffusely abnormal. There is diffuse intralobular and intralobular septal thickening, especially in the left upper lobe. There is change in the left lower lobe and irregular pulmonary parenchymal densities. There is loculated gas and minimal fluid within the left major fissure. This is a new finding. Diffuse interstitial abnormality is nonspecific. This may be secondary to interstitial pneumonia. Asymmetric left-sided interstitial edema would be unusual. Lymphangitic spread of metastases are possible. There is no honeycombing or bronchiectasis. Unilateral pulmonary fibrosis would be atypical There is no pathologic mediastinal or hilar adenopathy. Pulmonary CTA was not performed but there is no pulmonary embolism identified. Pulmonary arterial vasculature opacified and is negative. No axillary or supraclavicular adenopathy. Upper abdomen is negative. There is atherosclerotic calcification of the abdominal aorta. There is dense calcification arteries. Thoracic spine, sternum, and ribs are negative. No lytic lesions. IMPRESSION: 1. Persistent spiculated mass in the right upper lobe is unchanged since 04/11/1716. 2. Right lower lobe mass demonstrated previously has resolved 3. Diffuse interstitial abnormality in the left lung. Findings may be secondary to lymphangitic spread of metastases. See above discussion. 4. Loculated gas and minimal fluid within the left major fissure. Loculated gas in the right major fissure on previous examination has resolved The exam was performed using radiation dose optimization techniques including, but not limited to, automated exposure control, adjustment of the mA and/or kV according to patient size and use of iterative reconstruction technique. Interpreted and Authenticated by: Lon Bonilla 02/18/19
[2019-02-18] MEDS: TAMSULOSIN 0.4 MG CAPSULE PO SCH (09:46)
[2019-02-18] MEDS: FOLIC ACID 1 MG TABLET PO SCH (09:46)
[2019-02-18] MEDS: LACTOBACILLUS 1 CAPSULE PO SCH ×2 (09:46→21:06)
[2019-02-18] MEDS: methylPREDNISolone SOD SUCC 40 MG/ML VIAL IV SCH ×2 (09:47→21:06)
[2019-02-18] MEDS: ASPIRIN 81 MG TAB.CHEW PO SCH (09:47)
[2019-02-18] MEDS: FLUoxetine HCL 20 MG CAPSULE PO SCH (09:47)
[2019-02-18] MEDS: GABAPENTIN 300 MG CAPSULE PO SCH ×3 (09:47→21:07)
[2019-02-18] MEDS: ENOXAPARIN 40 MG/0.4 ML SYRINGE SQ SCH (09:47)
[2019-02-18] MEDS: AZITHROMYCIN 250 MG TABLET PO SCH (09:47)
[2019-02-18] MEDS: VILANTEROL INH SCH (10:22)
[2019-02-18] MEDS: FLUTICASONE FUROATE INH SCH (10:22)
[2019-02-18] MEDS: UMECLIDINIUM INH SCH (10:22)
[2019-02-18] MEDS ORDERED: ALBUTEROL SULFATE 2.5 MG/3 ML NEBULIZER NEB PRN (10:23)
[2019-02-18] MEDS ORDERED: ALBUTEROL SULFATE 2.5 MG/3 ML NEBULIZER ONE (10:27)
[2019-02-18] MEDS: traZODone HCL 100 MG TABLET PO SCH (21:07)
[2019-02-19] MEDS: IPRATROPIUM/ALBUTEROL 3 ML AMPUL.NEB NEB SCH ×6 (00:40→22:59)
[2019-02-19] MEDS ORDERED: LORazepam 2 MG/ML VIAL IV ONE (05:08)
[2019-02-19] MEDS ORDERED: LORazepam 2 MG/ML VIAL ONE (05:15)
[2019-02-19] MEDS: CEFEPIME 2 GM VIAL IV SCH ×3 (05:17→20:51)
[2019-02-19] MEDS: 0.9 % SODIUM CHLORIDE 10 ML SYRINGE IV SCH ×3 (05:19→22:04)
[2019-02-19 05:48] LABS: Basophils # (Auto) 0 K/mcL (0.0-0.3); Basophils % (Auto) 0 % (0.0-2.0); Eosinophils # (Auto) 0 K/mcL (0.0-0.7); Eosinophils % (Auto) 0 % (0.0-7.0); Granulocytes % (Auto) 98.1 % (38.0-78.0); Lymphocytes # (Auto) 0.2 K/mcL (1.5-4.8); Lymphocytes % (Auto) 1.3 % (15.5-49.0); Mean Cell Volume 91.7 fL (80.0-100.0); Mean Corpuscular HGB Conc 31.6 g/dL (31.0-36.0); Monocytes # (Auto) 0.1 K/mcL (0.1-0.9); Monocytes % (Auto) 0.6 % (1.0-12.0); Platelet Count 488 K/mcL (140-440); RBC 3.92 M/mcL (4.50-5.90); Red Cell Distribution Width 18.6 % (11.5-14.5)
[2019-02-19 06:16] LABS: Blood Urea Nitrogen 16 mg/dl (8-23)
--- NOTE | 2019-02-19 07:07 | Internal Med Progress Note ---
Medical - PN: Subj Patient information: Note initiated : 02/19/19 at 6:59 am Service Date, if different from initiated Date: [] Patient: Joni Darnell 83 y/o M admitted on 02/17/19 for SOB, Chest Pain. Chief Complaint: [] Interval history: With history of lung cancer and recent admission to the hospital for pneumonia 6 weeks ago. He has been residing in a detention facility since discharge. He states that last week he started developing left chest wall pleuritic chest pain sharp. Several days later he developed a productive cough of green sputum and shortness of breath. The symptoms continued and seemed to worsen. Today he is pleuritic chest pain and shortness of breath was so severe that he req uired coming to the hospital. In the ER he was tachypneic and tachycardic and workup revealed left lung pneumonia. He was hypoxic initially at 86% on room air. He received 3 nebulizer treatments with improvement in his oxygenation, but still appeared labored. His lactate was okay. Had a leukocytosis. He describes the chest wall pain as the left on the side of his chest and and sharp and is worse when he coughs or take a deep breath. Reports headaches and fevers. 02/18 Slept well. Left chest wall pain improving. Still quite short of breath but better than yesterday. Starting to work with physical therapy right now. No overnight events. Unable to cough up any sputum sample. 02/19 Patient had sudden shortness of breath this morning while getting up to go the bathroom. He was coughing with a lot of thick sputum production. Placed on BiPAP. chest x-ray chest x-ray revealing left pneumothorax. Patient comfortable on the BiPAP at this time denies shortness of breath. ROS: denies headache/fever/chills/nausea/vomiting/chest or abdominal pain/diarrhea. Otherwise see above. - Constitutional Vitals: Vital Signs Temp Pulse Resp BP Pulse Ox 98.5 F 120 H 26 H 116/74 93 02/19/19 03:45 02/19/19 05:53 02/19/19 05:53 02/19/19 03:45 02/19/19 05:53 Period Temp Pulse Resp BP Sys/Benavides Pulse Ox Last 24 Hr 97.5 F-98.6 F 72-125 16-26 97-136/59-75 89-98 Intake and Output 02/18/19 02/19/19 02/19/19 21:59 05:59 13:59 Intake Total 960 450 Output Total 700 550 Balance 260 -100 Weight 68.22 kg Intake & Output: Intake & Output 02/18/19 02/19/19 02/19/19 21:59 05:59 13:59 Intake Total 960 450 Output Total 700 550 Balance 260 -100 Weight 68.22 kg Intake: Oral 960 450 Output: Urine Catheter Amount 0 Straight 0 Void Amount 700 550 Other: Meal Dinner Percent of Meal Consumed 10% Feeding Ability Independent Urine Appearance Clear Clear Urine Color Dark [place] Pale Urine Odor Normal Stool Size Small Stool Color Brown # Bowel Movements 1 Exam: General: Alert, Awake, No acute Distress Eyes/N/T: EOMI, Head/Neck: neck supple, CV: RRR, No murmurs, Pulm: Decreased breath sounds on the left, occasional wheezing on the right, on BiPAP right now abd: soft, nontender, +BSx4 Ext: no clubbing/cyanosis/edema Neuro: Alert, no focal deficits, moves all extremities, Skin: warm/dry Medical - PN: Obj Da - Labs CBC & Chem 7: 02/19/19 04:31 02/19/19 04:31 Labs: Abnormal Lab Results 02/19/19 02/19/19 02/18/19 04:31 04:31 04:38 WBC 17.8 H RBC 3.92 L Hgb 11.4 L Hct 35.9 L RDW 18.6 H Plt Count 488 H Gran % 98.1 H Lymph % (Auto) 1.3 L [place] % (Auto) 0.6 L Gran # 17.5 H Lymph # (Auto) 0.2 L [place] # (Auto) Carbon Dioxide 20 L Anion Gap Glucose 178 H 195 H Calcium 8.2 L 7.7 L Phosphorus 2.1 L Alkaline Phosphatase Total Protein 5.2 L Albumin 2.4 L Albumin/Globulin Ratio 0.9 L 02/18/19 02/17/19 02/17/19 04:38 05:36 05:36 WBC 16.7 H RBC 3.42 L 4.13 L Hgb 9.9 L 11.9 L Hct 30.9 L 36.9 L RDW 18.5 H 18.5 H Plt Count 555 H Gran % 98.9 H 95.0 H Lymph % (Auto) 0.8 L 2.3 L [place] % (Auto) 0.3 L Gran # 9.6 H 15.9 H Lymph # (Auto) 0.1 L 0.4 L [place] # (Auto) 0 L Carbon Dioxide 21 L Anion Gap 17.0 H Glucose 168 H Calcium 8.2 L Phosphorus Alkaline Phosphatase 130 H Total Protein Albumin 2.8 L Albumin/Globulin Ratio 0.9 L Meds: Medications Acetaminophen (Tylenol) 650 mg PO Q6HP PRN PRN Reason: PAIN/FEVER > 101 Albuterol Sulfate (Ventolin) 2.5 mg NEB Q2HP PRN PRN Reason: Shortness Of Breath Last Admin: 02/19/19 04:43 Dose: 2.5 mg Documented by: Albuterol/Ipratropium (Duoneb) 3 ml NEB Q6HRT [facility] Last Admin: 02/19/19 00:40 Dose: Not Given Documented by: Aspirin (Aspirin) 81 mg PO DAILY [facility] Last Admin: 02/18/19 09:47 Dose: 81 mg Documented by: Azithromycin (Zithromax) 500 mg PO DAILY [facility] Stop: 02/19/19 09:01 Last Admin: 02/18/19 09:47 Dose: 500 mg Documented by: Cefepime HCl (Maxipime) 2 gm IV Q8H [facility]; Protocol Last Admin: 02/19/19 05:17 Dose: 2 gm Documented by: Enoxaparin Sodium (Lovenox) 40 mg SQ DAILY [facility] Last Admin: 02/18/19 09:47 Dose: 40 mg Documented by: Fluoxetine HCl (Prozac) 20 mg PO DAILY [facility] Last Admin: 02/18/19 09:47 Dose: 20 mg Documented by: Folic Acid (Folic Acid) 1 mg PO QDAY [facility] Last Admin: 02/18/19 09:46 Dose: 1 mg Documented by: Gabapentin (Neurontin) 300 mg PO TID [facility] Last Admin: 02/18/19 21:07 Dose: 300 mg Documented by: Potassium Chloride 40 meq/ (Dextrose) 520 mls @ 130 mls/hr IV ONCE PRN PRN Reason: Potassium < 3 Magnesium Sulfate (Magnesium Sulfate) 2 gm in 50 mls @ 50 mls/hr IV ONCE PRN PRN Reason: Magnesium </= 1.6 Lactobacillus Rhamnosus (Culturelle) 1 cap PO BID [facility] Last Admin: 02/18/19 21:06 Dose: 1 cap Documented by: Lorazepam (Ativan) 1 mg IV ONCE ONE Stop: 02/19/19 05:09 Last Admin: 02/19/19 05:17 Dose: 1 mg Documented by: Methylprednisolone Sodium Succinate (Solu-Medrol) 40 mg IV Q12 [facility] Last Admin: 02/18/19 21:06 Dose: 40 mg Documented by: Morphine Sulfate (Morphine) 0 mg IV Q3HP PRN PRN Reason: Pain Last Admin: 02/19/19 04:57 Dose: 2 mg Documented by: Ondansetron HCl (Zofran) 4 mg IV Q4HP PRN PRN Reason: Nausea And Vomiting Last Admin: 02/17/19 13:00 Dose: 4 mg Documented by: [facility]op[facility]) [facility] Last Admin: 02/18/19 07:43 Dose: 40 mg Documented by: Fluticasone Furoate/Umeclidinium/Vilanterol 100/62.5/25 Mcg Inhaler 1 dose INH QDAY [facility] Last Admin: 02/18/19 10:22 Dose: Not Given Documented by: Polyethylene Glycol (Miralax) 17 gm PO DAILYP PRN PRN Reason: Constipation Potassium Chloride (Kdur) 40 meq PO ONCE PRN PRN Reason: Potssium is 3-3.5 Potassium Chloride (Kdur) 40 meq PO ONCE PRN PRN Reason: Potassium < 3 Potassium Chloride (Kdur) 10 meq PO QAMCC [facility] Last Admin: 02/18/19 07:43 Dose: 10 meq Documented by: Prochlorperazine (Compazine) 10 mg IV Q6HP PRN PRN Reason: Nausea And Vomiting Sodium Chloride (Saline Flush) 10 ml IV Q8 [facility] Last Admin: 02/19/19 05:19 Dose: 10 ml Documented by: Tamsulosin HCl (Flomax) 0.4 mg PO DAILY [facility] Last Admin: 02/18/19 09:46 Dose: 0.4 mg Documented by: Trazodone HCl (Desyrel) 100 mg PO HS [facility] Last Admin: 02/18/19 21:07 Dose: 100 mg Documented by: Medical - PN: A/P - Time Spent With Patient Total time spent is greater than 50% in coordination of care (as documented) at patient's floor/unit and/or counseling patient: - Narrative A/P Narrative: A: *Pneumonia (LLL): -PSI score high -CT chest with known RUL spiculated mass, interstitial opacity left lung. 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 Lane, receives chemotherapy *Immunocompromised as patient is receiving chemotherapy *PVD: *Neuropathy: *Anemia, chronic: *Generalized weakness/deconditioning: Ambulates with a walker and resides at a detention facility *Depression: * P: -Rads for small bore chest tube -Azithromycin/cefepime -Sputum cultures pending, blood cultures pending -PCT trending -Steroids (wean) -Nebs/IS/Acapella/RT -PT/OT -ppx: Lovenox
[2019-02-19] MEDS ORDERED: 0.9 % SODIUM CHLORIDE 750 ML IV SCH (07:15)
[2019-02-19 07:30] LABS: Anisocytosis 1+ (NONE SEEN); Band Neutrophils % 3 % (0-10); Lymphocytes % 2 % (15-49); Platelet Estimate INCREASED (NORMAL); RBC Morphology ABNORMAL (NORMAL); Segmented Neutrophils % 95 % (38-78)
--- NOTE | 2019-02-19 08:29 | XRay Report ---
INDICATION: Chronic interstitial lung disease. Dyspnea. TECHNIQUE: AP chest x-ray,portable semiupright COMPARISON: Previous chest x-rays dated 02/17/2019 and 01/09/2019. Previous CT scan dated 02/18/2019 FINDINGS:Interval development of a large left pneumothorax. The left lung is partially collapsed and the size of this pneumothorax is difficult to calculate. It is estimated at at least 50%. There is no evidence for tension pneumothorax. There is no shift of the mediastinum and heart toward the right. Right lung remains unchanged. Interstitial markings are prominent. There is no right pneumothorax. No change in position of right-sided Port-A-Cath. Heart size and vascularity remain unchanged. Dr. Morales was called with these results, 02/19/2019, 0825 IMPRESSION: 1. Large left pneumothorax, new since 02/18/2019 2. Chronic underlying interstitial lung disease Interpreted and Authenticated by: Lon Bonilla 02/19/19
[2019-02-19] MEDS: POTASSIUM CHLORIDE 10 MEQ TABLET PO SCH (10:37)
[2019-02-19] MEDS: TAMSULOSIN 0.4 MG CAPSULE PO SCH ×2 (10:37→15:55)
[2019-02-19] MEDS: PANTOPRAZOLE 40 MG TABLET PO SCH (10:37)
[2019-02-19] MEDS: ASPIRIN 81 MG TAB.CHEW PO SCH (10:37)
[2019-02-19] MEDS: LACTOBACILLUS 1 CAPSULE PO SCH ×2 (10:37→20:52)
[2019-02-19] MEDS: UMECLIDINIUM INH SCH (10:38)
[2019-02-19] MEDS: FOLIC ACID 1 MG TABLET PO SCH (10:38)
[2019-02-19] MEDS: FLUoxetine HCL 20 MG CAPSULE PO SCH (10:38)
[2019-02-19] MEDS: VILANTEROL INH SCH (10:38)
[2019-02-19] MEDS: GABAPENTIN 300 MG CAPSULE PO SCH ×3 (10:38→20:52)
[2019-02-19] MEDS: FLUTICASONE FUROATE INH SCH (10:38)
[2019-02-19] MEDS: methylPREDNISolone SOD SUCC 40 MG/ML VIAL IV SCH ×2 (10:43→20:51)
--- NOTE | 2019-02-19 11:17 | XRay Report ---
INDICATION: Left pneumothorax. Subcutaneous emphysema TECHNIQUE: AP chest x-ray,portable upright COMPARISON: Previous chest x-rays dated 02/19/2019 and 02/17/2019 FINDINGS:There is been only slight reexpansion of the left lung since the examination prior to left chest tube placement. There is extensive left subcutaneous emphysema. IMPRESSION: Extensive left subcutaneous emphysema, status post left small caliber chest tube placement Interpreted and Authenticated by: Lon Bonilla 02/19/19
[2019-02-19] MEDS ORDERED: GLYCOPYRROLATE 0.2 MG/ML VIAL IV ONE (11:30)
[2019-02-19] MEDS ORDERED: fentaNYL 250 MCG/5 ML VIAL IV ONE (11:30)
[2019-02-19] MEDS ORDERED: ONDANSETRON 4 MG/2 ML VIAL IV ONE (11:30)
[2019-02-19] MEDS ORDERED: MIDAZOLAM 5 MG/5 ML VIAL IV ONE (11:30)
[2019-02-19] MEDS ORDERED: PROPOFOL 200 MG/20 ML VIAL IV ONE (11:30)
[2019-02-19] MEDS ORDERED: PHENYLEPHRINE 10 MG/ML VIAL IV ONE (11:30)
[2019-02-19] MEDS ORDERED: SUCCINYLCHOLINE 20 MG/ML ML IV ONE (11:30)
[2019-02-19] MEDS ORDERED: KETAMINE 100 MG/ML ML IV ONE (11:30)
--- NOTE | 2019-02-19 11:35 | XRay Report ---
CLINICAL INFORMATION: Left pneumothorax. TECHNIQUE: Informed consent was obtained. Routine ChloraPrep skin cleansing. 1% lidocaine injected subcutaneously and deep. A 5 [place] pigtail catheter is placed at the anterior second interspace and with in the left pleural space. Manual evacuation of left pneumothorax was attempted but the lung expanded only minimally. Patient developed subcutaneous emphysema. The catheter was affixed to the skin and the patient will be observed. 1 minute 25 seconds fluoroscopy utilized IMPRESSION: 1. Left pleural pigtail catheter placement as above 2. Attempted manual evacuation of left pleural gas ADDENDUM: The patient was observed for approximately one hour on the floor. Repeat chest x-ray did not demonstrate reexpansion of the left lung. There is accumulation of extensive subcutaneous emphysema. The catheter was removed and a surgical chest tube will be placed. Interpreted and Authenticated by: Lon Bonilla 02/19/19
--- NOTE | 2019-02-19 12:12 | XRay Report ---
INDICATION: Left pneumothorax. Left chest tube placement TECHNIQUE: AP chest x-ray,supine portable COMPARISON: Previous examinations dated 02/19/2019, 02/18/2019, 02/17/2019. FINDINGS:Interval removal of small caliber left chest tube. Placement of a left surgical chest tube. Tip is at the midline in the mid thorax. Left pneumothorax evacuated in the left lung is reexpanded. There is diffuse left lung infiltrate. There is an endotracheal tube with its tip at the ej. There is increased subcutaneous emphysema which now crosses to the right side. IMPRESSION: 1. Left sided chest tube placement as above 2. Reexpansion of the left lung and evacuation of left pneumothorax 3. Increased subcutaneous emphysema Interpreted and Authenticated by: Lon Bonilla 02/19/19
[2019-02-19] MEDS: ENOXAPARIN 40 MG/0.4 ML SYRINGE SQ SCH (13:58)
--- NOTE | 2019-02-19 14:39 | General Surgery Procedure Note ---
Date of procedure: Note initiated : 02/19/19 at 2:36 pm Service Date, if different from initiated Date: [] Pre-op diagnosis: left tension pneumothorax with extensive subcutaneous emphysema Post-op diagnosis: other (left tension pneumothorax with extensive subcutaneous emphysema; acute respiratory distress) Procedure: Left closed tube thoracostomy Findings: Greater than 50% collapse of left lung with extensive subcutaneous emphysema tracking up the mediastinum and into the neck as well as the entire left hemithorax. Grafts/Implants: 32 [place] straight [place] chest tube Anesthesia: GETA Surgeon: Daniel Stephenson Pathology: none sent Description of procedure: I was contacted emergently to evaluate a patient who had a left pneumothorax. A Pleurx catheter had been placed but it was not effective and the patient had extensive subcutaneous emphysema tracking along the catheter. He started having some respiratory distress and was having difficulty swallowing due to the amount of air in his neck and retroperitoneum. The radiologist had removed the catheter and the subcutaneous emphysema became worse thereafter. When I arrived the patient had been intubated and sedated. Procedure The left hemithorax was prepped with ChloraPrep. A limited transverse incision was made in the midaxillary line at about T6 level. Using a small [place] clamp dissection above the rib was carried out in the pleural cavity was entered. A large volume of air escaped. A 32 [place] chest tube was placed in an emergent chest x-ray was done. This showed that the tube was near the mediastinum and not up to the apex. I tried to reposition the tube however it would only course downward because of the partially trapped lung. Follow-up chest x-ray was done and it confirmed that the lung was fully expanded though the tube was not perfectly position. The tube was secured with 2 sutures of 0 silk and the incision was further closed with 2-0 silk. A dressing was placed and secured with silk tape to prevent dislodgment of the TUBE. The patient initially had a very large air leak but over the next 15 minutes the air leak decrease. The Pleur-evac was placed on 30 cm water suction. He was monitored and appeared to be stable. He was allowed to awaken and was extubated and placed on Ventimask. He was fully alert and aware after awakening from anesthesia. Condition: stable Disposition: ICU
[2019-02-19] MEDS ORDERED: AZITHROMYCIN 250 MG TABLET PO ONE (14:45)
[2019-02-19] MEDS: AZITHROMYCIN 250 MG TABLET PO SCH (14:54)
[2019-02-19] MEDS ORDERED: PROCHLORPERAZINE 10 MG/2 ML VIAL IV PRN (19:32)
[2019-02-19] MEDS ORDERED: POLYETHYLENE GLYCOL 3350 17 GM PACKET PO PRN (19:32)
[2019-02-19] MEDS ORDERED: ALBUTEROL SULFATE 2.5 MG/3 ML NEBULIZER NEB PRN (19:32)
[2019-02-19] MEDS ORDERED: POTASSIUM CHLORIDE 40 MEQ in DEXTROSE 5% IN WATER 500 ML IV PRN (19:32)
[2019-02-19] MEDS ORDERED: MAGNESIUM SULFATE 2 GM/50 ML BAG IV PRN (19:32)
[2019-02-19] MEDS ORDERED: ACETAMINOPHEN 325 MG TABLET PO PRN (19:32)
[2019-02-19] MEDS ORDERED: ONDANSETRON 4 MG/2 ML VIAL IV PRN (19:32)
[2019-02-19] MEDS ORDERED: POTASSIUM CHLORIDE 20 MEQ TABLET PO PRN ×2 (19:32)
[2019-02-19] MEDS: traZODone HCL 100 MG TABLET PO SCH (20:52)
[2019-02-20] MEDS: IPRATROPIUM/ALBUTEROL 3 ML AMPUL.NEB NEB SCH ×6 (03:58→23:01)
[2019-02-20 05:39] LABS: Basophils # (Auto) 0 K/mcL (0.0-0.3); Basophils % (Auto) 0 % (0.0-2.0); Eosinophils # (Auto) 0 K/mcL (0.0-0.7); Eosinophils % (Auto) 0 % (0.0-7.0); Granulocytes % (Auto) 97.3 % (38.0-78.0); Lymphocytes # (Auto) 0.1 K/mcL (1.5-4.8); Lymphocytes % (Auto) 1.6 % (15.5-49.0); Mean Cell Volume 91.7 fL (80.0-100.0); Monocytes # (Auto) 0.1 K/mcL (0.1-0.9); Monocytes % (Auto) 1.1 % (1.0-12.0); Platelet Count 401 K/mcL (140-440); RBC 3.62 M/mcL (4.50-5.90)
[2019-02-20] MEDS: 0.9 % SODIUM CHLORIDE 10 ML SYRINGE IV SCH ×3 (05:43→21:18)
[2019-02-20] MEDS: CEFEPIME 2 GM VIAL IV SCH ×3 (05:43→21:17)
[2019-02-20 06:04] LABS: ALT/SGPT 13 U/l (0-40); Albumin 2.8 gm/dL (3.2-5.2); Alkaline Phosphatase 95 U/L (39-117); Bilirubin,Direct < 0.2 mg/dL (0.0-0.3); Blood Urea Nitrogen 21 mg/dl (8-23); Gamma Glutamyl Transpeptidase 39 U/L (8-61); Uric Acid 4.7 mg/dL (2.5-8.0)
[2019-02-20] MEDS: PANTOPRAZOLE 40 MG TABLET PO SCH (07:33)
[2019-02-20] MEDS ORDERED: POTASSIUM CHLORIDE 10 MEQ TABLET PO SCH (08:00)
--- NOTE | 2019-02-20 09:00 | XRay Report ---
INDICATION: Left pneumothorax TECHNIQUE: AP chest x-ray,portable semiupright COMPARISON: Previous examinations dated 02/19/2019 FINDINGS:No change in left sided chest tube position. There is no recurrent left pneumothorax. There are diffuse left-sided infiltrates. Extensive left-sided subcutaneous emphysema is essentially unchanged IMPRESSION: 1. No change in left chest tube position 2. Extensive left subcutaneous emphysema Interpreted and Authenticated by: Lon Bonilla 02/20/19
--- NOTE | 2019-02-20 10:24 | Internal Med Progress Note ---
Medical - PN: Subj Patient information: Note initiated : 02/20/19 at 10:21 am Service Date, if different from initiated Date: [] Patient: Joni Darnell 83 y/o M admitted on 02/17/19 for SOB, Chest Pain. Chief Complaint: [] Interval history: With history of lung cancer and recent admission to the hospital for pneumonia 6 weeks ago. He has been residing in a longterm facility since discharge. He states that last week he started developing left chest wall pleuritic chest pain sharp. Several days later he developed a productive cough of green sputum and shortness of breath. The symptoms continued and seemed to worsen. Today he is pleuritic chest pain and shortness of breath was so severe that he re quired coming to the hospital. In the ER he was tachypneic and tachycardic and workup revealed left lung pneumonia. He was hypoxic initially at 86% on room air. He received 3 nebulizer treatments with improvement in his oxygenation, but still appeared labored. His lactate was okay. Had a leukocytosis. He describes the chest wall pain as the left on the side of his chest and and sharp and is worse when he coughs or take a deep breath. Reports headaches and fevers. 02/18 Slept well. Left chest wall pain improving. Still quite short of breath but better than yesterday. Starting to work with physical therapy right now. No overnight events. Unable to cough up any sputum sample. 02/19 Patient had sudden shortness of breath this morning while getting up to go the bathroom. He was coughing with a lot of thick sputum production. Placed on BiPAP. chest x-ray chest x-ray revealing left pneumothorax. Patient comfortable on the BiPAP at this time denies shortness of breath. 02/20 Patient seen examined, no acute issues, still is weak labs stable, wbc trending down, Procalcitonin trending down, He had Pneumothorax, spontaneous yesterday, s/p chest tube placement, needed to be intubated for a short while, s/p extubation afte chest tube. Pt x ray today shows continued improvement, appreicate help from surgery Pt is pa to get chemo for his Cancer on Thursday with Dr Lane Pertinent ROS: Denies headache, dizziness Denies chest pain, palpitations cough and shortness of breath, Improving, Denies abdominal pain, nausea or vomiting. - Constitutional Vitals: Vital Signs Temp Pulse Resp BP Pulse Ox 99.9 F H 82 20 126/90 94 02/20/19 08:15 02/20/19 08:15 02/20/19 08:15 02/20/19 08:15 02/20/19 08:15 Period Temp Pulse Resp BP Sys/Benavides Pulse Ox Last 24 Hr 96.6 F-99.9 F 82-107 20-28 50-151/22-111 90-100 Intake and Output 02/19/19 02/20/19 02/20/19 21:59 05:59 13:59 Intake Total 180 360 Output Total 80 520 350 Balance 100 -160 -350 Weight 150 lb Intake & Output: Intake & Output 02/19/19 02/20/19 02/20/19 21:59 05:59 13:59 Intake Total 180 360 Output Total 80 520 350 Balance 100 -160 -350 Weight 150 lb Intake: Oral 180 360 Output: Chest Tube Drainage 80 275 Left Mid-Axillary Chest 80 275 Urine Catheter Amount 0 Straight 0 Void Amount 245 350 Other: Urine Appearance Clear Urine Color Pale Urine Odor Strong # Voids 3 1 Exam: Constitutional; Afebrile, cooperative, alert, not in distress. chest wall,-significant crepitus left > right Respiratory system: Air Entry equal on both sides, bibasilar crackles, no wheeze noted. CVS- Rate rhythm regular, S1,S2 heard, no gallop, no rub. Abdomen- Soft nontender abdomen, no organomegaly, no tenderness, no guarding or rigidity, [employer]- AOOx3, moving all extremities, no gross focal deficit noted. Medical - PN: Obj Da - Labs CBC & Chem 7: 02/20/19 03:37 02/20/19 03:37 Labs: Abnormal Lab Results 02/20/19 02/20/19 02/19/19 03:37 03:37 11:23 WBC RBC 3.62 L Hgb 10.6 L Hct 33.2 L RDW 19.0 H Plt Count Gran % 97.3 H Lymph % (Auto) 1.6 L [place] % (Auto) Gran # 9.1 H Lymph # (Auto) 0.1 L [place] # (Auto) Seg Neutrophils % Lymphocytes % Platelet Estimate Anisocytosis POC PT 14.8 H Potassium 5.3 H Carbon Dioxide 21 L Glucose 198 H Calcium 7.6 L Phosphorus 1.7 L Lactate Dehydrogenase 275 H Total Protein 5.7 L Albumin 2.8 L Albumin/Globulin Ratio 02/19/19 02/19/19 02/19/19 04:31 04:31 04:31 WBC 17.8 H RBC 3.92 L Hgb 11.4 L Hct 35.9 L RDW 18.6 H Plt Count 488 H Gran % 98.1 H Lymph % (Auto) 1.3 L [place] % (Auto) 0.6 L Gran # 17.5 H Lymph # (Auto) 0.2 L [place] # (Auto) Seg Neutrophils % 95 H Lymphocytes % 2 L Platelet Estimate Increased A Anisocytosis 1+ A POC PT Potassium Carbon Dioxide 20 L Glucose 178 H Calcium 8.2 L Phosphorus Lactate Dehydrogenase Total Protein Albumin Albumin/Globulin Ratio 02/18/19 02/18/19 04:38 04:38 WBC RBC 3.42 L Hgb 9.9 L Hct 30.9 L RDW 18.5 H Plt Count Gran % 98.9 H Lymph % (Auto) 0.8 L [place] % (Auto) 0.3 L Gran # 9.6 H Lymph # (Auto) 0.1 L [place] # (Auto) 0 L Seg Neutrophils % Lymphocytes % Platelet Estimate Anisocytosis POC PT Potassium Carbon Dioxide Glucose 195 H Calcium 7.7 L Phosphorus 2.1 L Lactate Dehydrogenase Total Protein 5.2 L Albumin 2.4 L Albumin/Globulin Ratio 0.9 L Meds: Medications Acetaminophen (Tylenol) 650 mg PO Q6HP PRN PRN Reason: PAIN/FEVER > 101 Albuterol Sulfate (Ventolin) 2.5 mg NEB Q2HP PRN PRN Reason: Shortness Of Breath Albuterol/Ipratropium (Duoneb) 3 ml NEB Q4HRT [facility] Last Admin: 02/20/19 07:09 Dose: Not Given Documented by: Aspirin (Aspirin) 81 mg PO DAILY [facility] Cefepime HCl (Maxipime) 2 gm IV Q8H [facility]; Protocol Last Admin: 02/20/19 05:43 Dose: 2 gm Documented by: Enoxaparin Sodium (Lovenox) 40 mg SQ DAILY [facility] Fluoxetine HCl (Prozac) 20 mg PO DAILY [facility] Folic Acid (Folic Acid) 1 mg PO QDAY [facility] Gabapentin (Neurontin) 300 mg PO TID [facility] Last Admin: 02/19/19 20:52 Dose: 300 mg Documented by: Potassium Chloride 40 meq/ (Dextrose) 520 mls @ 130 mls/hr IV ONCE PRN PRN Reason: Potassium < 3 Magnesium Sulfate (Magnesium Sulfate) 2 gm in 50 mls @ 50 mls/hr IV ONCE PRN PRN Reason: Magnesium </= 1.6 Lactobacillus Rhamnosus (Culturelle) 1 cap PO BID [facility] Last Admin: 02/19/19 20:52 Dose: 1 cap Documented by: Morphine Sulfate (Morphine) 0 mg IV Q3HP PRN PRN Reason: Pain Last Admin: 02/20/19 08:02 Dose: 2 mg Documented by: Ondansetron HCl (Zofran) 4 mg IV Q4HP PRN PRN Reason: Nausea And Vomiting Pantoprazole Sodium (Protonix) 40 mg PO QAMAC [facility] Last Admin: 02/20/19 07:33 Dose: 40 mg Documented by: Fluticasone Furoate/Umeclidinium/Vilanterol 100/62.5/25 Mcg Inhaler 1 dose INH QDAY [facility] Polyethylene Glycol (Miralax) 17 gm PO DAILYP PRN PRN Reason: Constipation Potassium Chloride (Kdur) 40 meq PO ONCE PRN PRN Reason: Potssium is 3-3.5 Potassium Chloride (Kdur) 40 meq PO ONCE PRN PRN Reason: Potassium < 3 [facility] Prochlorperazine (Compazine) 10 mg IV Q6HP PRN PRN Reason: Nausea And Vomiting Sodium Chloride (Saline Flush) 10 ml IV Q8 [facility] Last Admin: 02/20/19 05:43 Dose: 10 ml Documented by: Tamsulosin HCl (Flomax) 0.4 mg PO DAILY [facility] Trazodone HCl (Desyrel) 100 mg PO HS [facility] Last Admin: 02/19/19 20:52 Dose: 100 mg Documented by: Medical - PN: A/P - Time Spent With Patient Total time spent is greater than 50% in coordination of care (as documented) at patient's floor/unit and/or counseling patient: - Narrative A/P Narrative: A/P Health care associated pneumonia -cultures neg, on cefepime and zithromax, clinically responding well to present treatment Sepsis -resolved Acute on Chr hypoxic resp failure -on oxygen, titrate down as tolerated -intubated briefly for pneumothorax, s/p extubation on 02/19/19 Spontaneous left pneumonthorax -s/p chest tube, surgery following, -CXR today shows good rexpansion, Acute exacerbation of copd -on steroids, change from IV to po, -duonebs q4hrs Lung Cancer -Follows with Dr Lane -[facility] for chemo on Thursday, Port in place, PVD/Neuropathy/Depression -stable, on home meds Anemia, chr -anemia due to malignancy, follows with oncologist BPH -on flomax, pt refusing armstrong DVT -lovenox DNR code status Weakness/ OT/PT Rehab.
[2019-02-20] MEDS: methylPREDNISolone SOD SUCC 40 MG/ML VIAL IV SCH (10:32)
[2019-02-20] MEDS: FLUoxetine HCL 20 MG CAPSULE PO SCH (10:33)
[2019-02-20] MEDS: LACTOBACILLUS 1 CAPSULE PO SCH ×2 (10:33→21:17)
[2019-02-20] MEDS: ENOXAPARIN 40 MG/0.4 ML SYRINGE SQ SCH (10:33)
[2019-02-20] MEDS: TAMSULOSIN 0.4 MG CAPSULE PO SCH (10:34)
[2019-02-20] MEDS: ASPIRIN 81 MG TAB.CHEW PO SCH (10:34)
[2019-02-20] MEDS: GABAPENTIN 300 MG CAPSULE PO SCH ×3 (10:34→21:17)
[2019-02-20] MEDS: FOLIC ACID 1 MG TABLET PO SCH (10:34)
[2019-02-20] MEDS ORDERED: BENZOCAINE/MENTHOL 1 LOZENGE PO PRN (11:06)
[2019-02-20] MEDS: FLUTICASONE FUROATE INH SCH (11:32)
[2019-02-20] MEDS: VILANTEROL INH SCH (11:32)
[2019-02-20] MEDS: UMECLIDINIUM INH SCH (11:32)
[2019-02-20] MEDS ORDERED: LIDOCAINE 2% URO-JET 5 ML JEL.PF.APP UR ONE (11:36)
--- NOTE | 2019-02-20 12:00 | General Surgery Progress Note ---
Subjective Patient reports: feels better, pain is less, shortness of breath, afebrile Narrative: Note initiated : 02/20/19 at 11:58 am Service Date, if different from initiated Date: [] Patient: Joni Darnell 83 y/o M admitted on 02/17/19 for SOB, Chest Pain. Chief Complaint: [patient states that he feels better. He has less shortness of breath. He denies chest pain except around the chest tube insertion site. His subcutaneous emphysema seems to be less prominent. White blood count 9.4, hemoglobin 10.6, potassium 5.3, BUN 21, creatinine 0.9. He has a major air leak at this time though it is clinically less than on last evening. His major difficulties with urinary retention and I discussed the need for him to have straight catheter and evacuation of the bladder. He is agreeable to this.] Objective Temp Pulse Resp BP Pulse Ox 99.9 F H 82 20 126/90 90 02/20/19 08:15 02/20/19 08:15 02/20/19 08:15 02/20/19 08:15 02/20/19 11:04 - Additional Data Intake & Output - Last 24 hours: Intake & Output 02/18/19 02/19/19 02/20/19 02/21/19 05:59 05:59 05:59 05:59 Intake Total 440 2590 540 Output Total 850 1250 600 350 Balance -410 1340 -60 -350 Weight 147 lb 6.4 oz 150 lb 6.4 oz 150 lb - General physical appearance well developed, well nourished, no distress - Eyes PERRL, normal ocular movement - ENT normal pinna, normal nares, normal mucosa, no hearing loss, no congestion - Neck no masses, no bruits, trachea midline, no lymphadenopathy, no venous distension - Respiratory normal expansion, normal respiratory effort, clear to auscultation, other ( breath sounds are equal) - Cardiovascular Cardiovascular exam: Present: normal rate and rhythm ( follow still working), RRR, +S1, +S2. Absent: tachycardia - Abdomen distended ( distended bladder otherwise normal abdominal exam) - Integumentary no rash, no growths, no abnormal pigmentation - Neurologic normal coordination, normal sensation - Psychiatric oriented to time, oriented to person, oriented to place, speech is normal, memory intact - Labs 02/20/19 03:37 02/20/19 03:37 Diabetes panel 02/20/19 Range/Units 03:37 Sodium 134 (133-145) mmol/L Potassium 5.3 H (3.3-5.1) mmol/L Chloride 102 (96-108) mmol/L Carbon Dioxide 21 L (22-30) mmol/L BUN 21 (8-23) mg/dl Creatinine 0.9 (0.7-1.2) mg/dl Glucose 198 H (70-105) mg/dL Calcium 7.6 L (8.6-10.4) mg/dl AST 14 (0-37) U/l ALT 13 (0-40) U/l Alkaline Phosphatase 95 (39-117) U/L Total Protein 5.7 L (5.9-8.4) gm/dL Albumin 2.8 L (3.2-5.2) gm/dL Triglycerides 118 (<150) mg/dl Calcium panel 02/20/19 Range/Units 03:37 Calcium 7.6 L (8.6-10.4) mg/dl Phosphorus 1.7 L (2.7-4.5) mg/dL Albumin 2.8 L (3.2-5.2) gm/dL Pituitary panel 02/20/19 Range/Units 03:37 Sodium 134 (133-145) mmol/L Potassium 5.3 H (3.3-5.1) mmol/L Chloride 102 (96-108) mmol/L Carbon Dioxide 21 L (22-30) mmol/L BUN 21 (8-23) mg/dl Creatinine 0.9 (0.7-1.2) mg/dl Glucose 198 H (70-105) mg/dL Calcium 7.6 L (8.6-10.4) mg/dl Adrenal panel 02/20/19 Range/Units 03:37 Sodium 134 (133-145) mmol/L Potassium 5.3 H (3.3-5.1) mmol/L Chloride 102 (96-108) mmol/L Carbon Dioxide 21 L (22-30) mmol/L BUN 21 (8-23) mg/dl Creatinine 0.9 (0.7-1.2) mg/dl Glucose 198 H (70-105) mg/dL Calcium 7.6 L (8.6-10.4) mg/dl Total Bilirubin 0.3 (0.0-1.0) mg/dL AST 14 (0-37) U/l ALT 13 (0-40) U/l Alkaline Phosphatase 95 (39-117) U/L Total Protein 5.7 L (5.9-8.4) gm/dL Albumin 2.8 L (3.2-5.2) gm/dL Assessment and Plan (1) Spontaneous pneumothorax Status: Acute Assessment and plan: Continuous suction at 30 cm water Follow-up chest x-ray daily Current Visit: Yes (2) COPD (chronic obstructive pulmonary disease) Status: Chronic Current Visit: No (3) Lung cancer Status: Chronic Current Visit: No (4) Pneumonia involving left lung Status: Acute Current Visit: Yes - Time Spent With Patient Total time spent is greater than 50% in coordination of care (as documented) at patient's floor/unit and/or counseling patient:
[2019-02-20] MEDS: CLOTRIMAZOLE 10 MG TROCHE PO SCH ×4 (12:12→20:06)
[2019-02-20] MEDS ORDERED: LIDOCAINE 2% URO-JET 5 ML JEL.PF.APP UR PRN (16:45)
[2019-02-20] MEDS: traZODone HCL 100 MG TABLET PO SCH (21:17)
[2019-02-21] MEDS: IPRATROPIUM/ALBUTEROL 3 ML AMPUL.NEB NEB SCH ×4 (04:45→14:14)
[2019-02-21] MEDS: CEFEPIME 2 GM VIAL IV SCH ×2 (05:56→14:26)
[2019-02-21] MEDS: 0.9 % SODIUM CHLORIDE 10 ML SYRINGE IV SCH ×2 (05:57→14:26)
[2019-02-21 06:24] LABS: Basophils # (Auto) 0 K/mcL (0.0-0.3); Basophils % (Auto) 0 % (0.0-2.0); Eosinophils # (Auto) 0 K/mcL (0.0-0.7); Eosinophils % (Auto) 0 % (0.0-7.0); Granulocytes % (Auto) 95.4 % (38.0-78.0); Lymphocytes # (Auto) 0.4 K/mcL (1.5-4.8); Lymphocytes % (Auto) 3.4 % (15.5-49.0); Mean Cell Volume 91.9 fL (80.0-100.0); Mean Corpuscular HGB Conc 31.1 g/dL (31.0-36.0); Monocytes # (Auto) 0.1 K/mcL (0.1-0.9); Monocytes % (Auto) 1.2 % (1.0-12.0); Platelet Count 411 K/mcL (140-440); RBC 3.53 M/mcL (4.50-5.90); Red Cell Distribution Width 18.5 % (11.5-14.5)
[2019-02-21 06:41] LABS: ALT/SGPT 11 U/l (0-40); Albumin 2.5 gm/dL (3.2-5.2); Alkaline Phosphatase 86 U/L (39-117); Bilirubin,Direct < 0.2 mg/dL (0.0-0.3); Blood Urea Nitrogen 25 mg/dl (8-23); Gamma Glutamyl Transpeptidase 39 U/L (8-61); Uric Acid 4.6 mg/dL (2.5-8.0)
[2019-02-21] MEDS: CLOTRIMAZOLE 10 MG TROCHE PO SCH ×5 (07:23→18:37)
[2019-02-21] MEDS: PANTOPRAZOLE 40 MG TABLET PO SCH (07:23)
[2019-02-21] MEDS ORDERED: predniSONE 20 MG TABLET PO SCH (08:00)
[2019-02-21] MEDS ORDERED: SODIUM POLYSTYRENE SULFONATE 15 GM/60 ML SUSPENSION PO ONE (08:19)
--- NOTE | 2019-02-21 08:50 | XRay Report ---
INDICATION: Follow-up left pneumothorax. Follow-up left chest tube placement TECHNIQUE: AP chest x-ray,portable semiupright COMPARISON: Previous examinations dated 02/20/2019 and 02/19/2019 FINDINGS:No change in left chest tube position. There is no detectable pneumothorax. Again demonstrated is extensive left subcutaneous emphysema. This is slightly decreased. There is persistent left lung infiltrate, unchanged IMPRESSION: No change in left chest tube position. No pneumothorax identified Decreased left subcutaneous emphysema Interpreted and Authenticated by: Lon Bonilla 02/21/19
[2019-02-21] MEDS ORDERED: SODIUM POLYSTYRENE SULFONATE 15 GM/60 ML SUSPENSION ONE (08:56)
[2019-02-21] MEDS: ASPIRIN 81 MG TAB.CHEW PO SCH (08:57)
[2019-02-21] MEDS: TAMSULOSIN 0.4 MG CAPSULE PO SCH (08:57)
[2019-02-21] MEDS: FOLIC ACID 1 MG TABLET PO SCH (08:57)
[2019-02-21] MEDS: FLUoxetine HCL 20 MG CAPSULE PO SCH (08:57)
[2019-02-21] MEDS: UMECLIDINIUM INH SCH (08:58)
[2019-02-21] MEDS: LACTOBACILLUS 1 CAPSULE PO SCH (08:58)
[2019-02-21] MEDS: VILANTEROL INH SCH (08:58)
[2019-02-21] MEDS: GABAPENTIN 300 MG CAPSULE PO SCH ×2 (08:58→14:26)
[2019-02-21] MEDS: ENOXAPARIN 40 MG/0.4 ML SYRINGE SQ SCH (08:58)
[2019-02-21] MEDS: FLUTICASONE FUROATE INH SCH (08:58)
[2019-02-21] MEDS ORDERED: NEUTRA PHOS 1 PACKET PO SCH (09:00)
--- NOTE | 2019-02-21 10:33 | Internal Med Progress Note ---
Medical - PN: Subj Patient information: Note initiated : 02/21/19 at 10:31 am Service Date, if different from initiated Date: [] Patient: Joni Darnell 83 y/o M admitted on 02/17/19 for SOB, Chest Pain. Chief Complaint: [] Interval history: With history of lung cancer and recent admission to the hospital for pneumonia 6 weeks ago. He has been residing in a senior care facility since discharge. He states that last week he started developing left chest wall pleuritic chest pain sharp. Several days later he developed a productive cough of green sputum and shortness of breath. The symptoms continued and seemed to worsen. Today he is pleuritic chest pain and shortness of breath was so severe that he re quired coming to the hospital. In the ER he was tachypneic and tachycardic and workup revealed left lung pneumonia. He was hypoxic initially at 86% on room air. He received 3 nebulizer treatments with improvement in his oxygenation, but still appeared labored. His lactate was okay. Had a leukocytosis. He describes the chest wall pain as the left on the side of his chest and and sharp and is worse when he coughs or take a deep breath. Reports headaches and fevers. 02/18 Slept well. Left chest wall pain improving. Still quite short of breath but better than yesterday. Starting to work with physical therapy right now. No overnight events. Unable to cough up any sputum sample. 02/19 Patient had sudden shortness of breath this morning while getting up to go the bathroom. He was coughing with a lot of thick sputum production. Placed on BiPAP. chest x-ray chest x-ray revealing left pneumothorax. Patient comfortable on the BiPAP at this time denies shortness of breath. 02/20 Patient seen examined, no acute issues, still is weak labs stable, wbc trending down, Procalcitonin trending down, He had Pneumothorax, spontaneous yesterday, s/p chest tube placement, needed to be intubated for a short while, s/p extubation afte chest tube. Pt x ray today shows continued improvement, appreicate help from surgery Pt is pa to get chemo for his Cancer on Thursday with Dr Lane 02/21 Patient seen examined, no new complaints or concerns Chest tube in place, x ray shows inflated lung, air leak present, Appreciate surgery help labs stable. K elevated, po kayexalate today, replace phos Pertinent ROS: Denies headache, dizziness Denies chest pain, palpitations Denies cough or shortness of breath Denies abdominal pain, nausea or vomiting. - Constitutional Vitals: Vital Signs Temp Pulse Resp BP Pulse Ox 98.2 F 87 14 113/74 95 02/21/19 08:00 02/21/19 08:00 02/21/19 08:00 02/21/19 08:00 02/21/19 08:00 Period Temp Pulse Resp BP Sys/Benavides Pulse Ox Last 24 Hr 97.6 F-99.4 F 67-94 14-20 113-146/74-96 90-100 Intake and Output 02/20/19 02/21/19 02/21/19 21:59 05:59 13:59 Intake Total 860 Output Total 595 650 625 Balance 265 -650 -625 Weight 148 lb Intake & Output: Intake & Output 02/20/19 02/21/19 02/21/19 21:59 05:59 13:59 Intake Total 860 Output Total 595 650 625 Balance 265 -650 -625 Weight 148 lb Intake: Nourishment/Supplement quantity 140 (ml) Oral 720 Output: Chest Tube Drainage 120 Left Mid-Axillary Chest 120 Void Amount 475 650 625 Other: Meal Dinner Percent of Meal Consumed 75% Feeding Ability Independent Nourishment/Supplement name Ensure Enlive Urine Appearance Clear Urine Color Pale # Voids 1 Exam: Constitutional; Afebrile, cooperative, alert, not in distress. Respiratory system: Air Entry equal on both sides, bibasilar rales, basilar crackles present, mild wheezing present. CVS- Rate rhythm regular, S1,S2 heard, no gallop, no rub. Abdomen- Soft nontender abdomen, no organomegaly, no tenderness, no guarding or rigidity, [employer]MENT DES[employer]- AOOx3, moving all extremities, no gross focal deficit noted. Medical - PN: Obj Da - Labs CBC & Chem 7: 02/21/19 03:43 02/21/19 03:43 Labs: Abnormal Lab Results 02/21/19 02/21/19 02/20/19 03:43 03:43 03:37 WBC RBC 3.53 L Hgb 10.1 L Hct 32.4 L RDW 18.5 H Plt Count Gran % 95.4 H Lymph % (Auto) 3.4 L [place] % (Auto) Gran # 10.1 H Lymph # (Auto) 0.4 L Seg Neutrophils % Lymphocytes % Platelet Estimate Anisocytosis POC PT Potassium 5.8 H 5.3 H Carbon Dioxide 20 L 21 L BUN 25 H Glucose 128 H 198 H Calcium 7.9 L 7.6 L Phosphorus 1.3 L 1.7 L Lactate Dehydrogenase 277 H 275 H Total Protein 5.0 L 5.7 L Albumin 2.5 L 2.8 L 02/20/19 02/19/19 02/19/19 03:37 11:23 04:31 WBC RBC 3.62 L Hgb 10.6 L Hct 33.2 L RDW 19.0 H Plt Count Gran % 97.3 H Lymph % (Auto) 1.6 L [place] % (Auto) Gran # 9.1 H Lymph # (Auto) 0.1 L Seg Neutrophils % 95 H Lymphocytes % 2 L Platelet Estimate Increased A Anisocytosis 1+ A POC PT 14.8 H Potassium Carbon Dioxide BUN Glucose Calcium Phosphorus Lactate Dehydrogenase Total Protein Albumin 02/19/19 02/19/19 04:31 04:31 WBC 17.8 H RBC 3.92 L Hgb 11.4 L Hct 35.9 L RDW 18.6 H Plt Count 488 H Gran % 98.1 H Lymph % (Auto) 1.3 L [place] % (Auto) 0.6 L Gran # 17.5 H Lymph # (Auto) 0.2 L Seg Neutrophils % Lymphocytes % Platelet Estimate Anisocytosis POC PT Potassium Carbon Dioxide 20 L BUN Glucose 178 H Calcium 8.2 L Phosphorus Lactate Dehydrogenase Total Protein Albumin Meds: Medications Acetaminophen (Tylenol) 650 mg PO Q6HP PRN PRN Reason: PAIN/FEVER > 101 Albuterol Sulfate (Ventolin) 2.5 mg NEB Q2HP PRN PRN Reason: Shortness Of Breath Albuterol/Ipratropium (Duoneb) 3 ml NEB Q4HRT [facility] Last Admin: 02/21/19 07:06 Dose: 3 ml Documented by: Aspirin (Aspirin) 81 mg PO DAILY [facility] Last Admin: 02/21/19 08:57 Dose: 81 mg Documented by: Cefepime HCl (Maxipime) 2 gm IV Q8H [facility]; Protocol Last Admin: 02/21/19 05:56 Dose: 2 gm Documented by: Clotrimazole (Mycelex) 10 mg PO 5XD [facility] Last Admin: 02/21/19 07:23 Dose: 10 mg Documented by: Enoxaparin Sodium (Lovenox) 40 mg SQ DAILY [facility] Last Admin: 02/21/19 08:58 Dose: 40 mg Documented by: Fluoxetine HCl (Prozac) 20 mg PO DAILY [facility] Last Admin: 02/21/19 08:57 Dose: 20 mg Documented by: Folic Acid (Folic Acid) 1 mg PO QDAY [facility] Last Admin: 02/21/19 08:57 Dose: 1 mg Documented by: Gabapentin (Neurontin) 300 mg PO TID [facility] Last Admin: 02/21/19 08:58 Dose: 300 mg Documented by: Magnesium Sulfate (Magnesium Sulfate) 2 gm in 50 mls @ 50 mls/hr IV ONCE PRN PRN Reason: Magnesium </= 1.6 Lactobacillus Rhamnosus (Culturelle) 1 cap PO BID [facility] Last Admin: 02/21/19 08:58 Dose: 1 cap Documented by: Lidocaine HCl (Lidocaine 2% Uro-Jet) 5 ml UR PRN PRN PRN Reason: Straight catheteriziation Morphine Sulfate (Morphine) 0 mg IV Q3HP PRN PRN Reason: Pain Last Admin: 02/20/19 08:02 Dose: 2 mg Documented by: Ondansetron HCl (Zofran) 4 mg IV Q4HP PRN PRN Reason: Nausea And Vomiting Pantoprazole Sodium (Protonix) [facility] Last Admin: 02/21/19 07:23 Dose: 40 mg Documented by: Fluticasone Furoate/Umeclidinium/Vilanterol 100/62.5/25 Mcg Inhaler 1 dose INH QDAY [facility] Last Admin: 02/21/19 08:58 Dose: Not Given Documented by: Polyethylene Glycol (Miralax) 17 gm PO DAILYP PRN PRN Reason: Constipation Potassium/Phosphorus/Sodium (Neutra Phos) 1 packet PO BID [facility] Prednisone (Prednisone) [facility] Last Admin: 02/21/19 07:23 Dose: 40 mg Documented by: Prochlorperazine (Compazine) 10 mg IV Q6HP PRN PRN Reason: Nausea And Vomiting Sodium Chloride (Saline Flush) 10 ml IV Q8 [facility] Last Admin: 02/21/19 05:57 Dose: 10 ml Documented by: Tamsulosin HCl (Flomax) 0.4 mg PO DAILY [facility] Last Admin: 02/21/19 08:57 Dose: 0.4 mg Documented by: Throat Lozenges (Cepacol) 1 lozenge PO PRN PRN PRN Reason: Sore Throat Last Admin: 02/20/19 15:15 Dose: 1 lozenge Documented by: Trazodone HCl (Desyrel) 100 mg PO HS [facility] Last Admin: 02/20/19 21:17 Dose: 100 mg Documented by: Medical - PN: A/P - Time Spent With Patient Total time spent is greater than 50% in coordination of care (as documented) at patient's floor/unit and/or counseling patient: - Narrative A/P Narrative: A/P Health care associated pneumonia -cultures neg, on cefepime and zithromax, clinically responding well to present treatment Sepsis -resolved Acute on Chr hypoxic resp failure -on oxygen, titrate down as tolerated -intubated briefly for pneumothorax, s/p extubation on 02/19/19 Spontaneous left pneumonthorax -s/p chest tube, surgery following, -CXR today shows good rexpansion, still has air leak via chest tube. 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 Hypophospatemia -replace orally. DVT -lovenox DNR code status Weakness/ OT/PT Rehab.
[2019-02-21] MEDS ORDERED: MAGNESIUM SULFATE 2 GM/50 ML BAG IV ONE (14:47)
--- NOTE | 2019-02-21 15:11 | Cat Scan Report ---
CLINICAL INFORMATION: Left pneumothorax. Extensive subcutaneous emphysema. COMPARISON: Previous chest CT scan dated 02/18/2019. Previous examination dated 04/18/2016 TECHNIQUE: Axial noncontrast enhanced images through the chest. Sagittally and coronally reformatted images. MIP reformatted images. FINDINGS: There is a left basilar chest tube. This appears to be partially within left lower lobe parenchyma. Chest tube extends to the midline and crosses the midline with the tip in the right pleural space at the azygoesophageal recess. Chest tube is probably anterior to the esophagus. There is a persistent small left pneumothorax. There is also a very small right pneumothorax. There is extensive pneumomediastinum. There is extensive soft tissue gas throughout the neck and chest wall. There is gas within the major fissure on the left with some loculated fluid. Aerated portions of the left lung are diffusely abnormal with diffuse destructive cystic change. There is a small left pleural effusion. There is no pneumopericardium. There is no pneumoperitoneum. There is a spiculated right upper lobe mass. This was present on previous CT scan dated 02/19/2016 and prior examination dated 04/18/2016. IMPRESSION: 1. Left-sided chest tube in above-described position 2. Left pneumothorax and new small right pneumothorax 3. Extensive pneumomediastinum and subcutaneous gas 4. Small left effusion. There is fluid within the left major fissure The exam was performed using radiation dose optimization techniques including, but not limited to, automated exposure control, adjustment of the mA and/or kV according to patient size and use of iterative reconstruction technique. Interpreted and Authenticated by: Lon Bonilla 02/21/19
[2019-02-21 17:31] LABS: Blood Urea Nitrogen 27 mg/dl (8-23)
--- NOTE | 2019-02-21 17:40 | Transfer Summary ---
Transfer Discharge Sum: Prov Patient information: Note initiated : 02/21/19 at 5:35 pm Service Date, if different from initiated Date: [] Patient: Joni Darnell 83 y/o M admitted on 02/17/19 for SOB, Chest Pain. Chief Complaint: [] Date of admission: 02/17/19 07:59 Discharge Date: 02/21/19 Primary care physician: Jhoan Ramirez MD Consults: 02/17/19 Consult to Physician [CONS] Stat Comment: Consulting Provider: Lázaro Arango Reason For Exam: Physician to Consult 02/19/19 10:21 Consult to Physician [CONS] Routine Comment: chest tube Consulting Provider: Daniel Stephenson Reason For Exam: Physician to Consult Discharging clinician: Krishna López Receiving physician/facility: Dr Spenser LUCAS surgeon Dr [facility]ila Hospitalist Transfer Discharge Sum: Med - Medications Active and Home Medications: Home Medications cyanocobalamin (vit B-12) 1,000 mcg tablet 1,000 mcg PO .QOD tab 04/23/16 [History Confirmed 02/17/19] aspirin 81 mg tablet,delayed release 81 mg PO QDAY 07/08/17 [History Confirmed 02/17/19] folic acid 1 mg tablet 1 mg PO QDAY #90 tab 03/08/18 [Rx Confirmed 02/17/19] fluoxetine 20 mg tablet 20 mg PO DAILY #30 tab 04/20/18 [Rx Confirmed 02/17/19] ipratropium-albuterol 0.5 mg-3 mg(2.5 mg base)/3 mL nebulization soln 3 ml INHALATION Q6H PRN #90 ml 05/10/18 [Rx Confirmed 02/17/19] fluticasone fur. 100 mcg-umeclid 62.5 mcg-vilant 25 mcg inhalat.powder 1 inh INHALATION QDAY #60 each 06/03/18 [Rx Confirmed 02/17/19] paclitaxel 6 mg/mL concentrate,intravenous 5.63 mg/m2/hr IV WEEKLY 06/14/18 [History Confirmed 02/17/19] potassium chloride ER 10 mEq tablet,extended release 10 meq PO QDAY #90 tab 06/25/18 [Rx Confirmed 02/17/19] calcium 600mg/vitamin d3 400 iu 600 mg PO QDAY 08/16/18 [History Confirmed 02/17/19] cholecalciferol (vitamin D3) 1,000 unit capsule 1,000 unit PO QDAY 08/16/18 [History Confirmed 02/17/19] pantoprazole 40 mg tablet,delayed release 40 mg PO QDAY 08/16/18 [History Confirmed 02/17/19] albuterol sulfate HFA 90 mcg/actuation aerosol inhaler 2 puff INHALATION Q3-4H PRN #18 g 08/19/18 [Rx Confirmed 02/17/19] Acetaminophen [Tylenol Extra Strength] 500 mg PO TID 01/04/19 [History Confirmed 02/17/19] Denosumab [Xgeva] 120 mg SC QMONTH 01/04/19 [History Confirmed 02/17/19] Denosumab [Xgeva] 120 mg SC QMONTH 01/04/19 [History Confirmed 02/17/19] Gabapentin [Neurontin] 300 mg PO TID 01/04/19 [History Confirmed 02/17/19] L.acidoph,Paracasei, B.lactis [Probiotic] 1 each PO QDAY 01/04/19 [History Confirmed 02/17/19] Tamsulosin [Flomax] 0.4 mg PO DAILY 01/04/19 [History Confirmed 02/17/19] traZODone HCL [Trazodone HCl] 100 mg PO HS 01/04/19 [History Confirmed 02/17/19] Lactobacillus [Culturelle] 1 cap PO BID #60 cap 01/09/19 [Rx Confirmed 02/17/19] Active Medications Acetaminophen (Tylenol) 650 mg PO Q6HP PRN PRN Reason: PAIN/FEVER > 101 Albuterol Sulfate (Ventolin) 2.5 mg NEB Q2HP PRN PRN Reason: Shortness Of Breath Albuterol/Ipratropium (Duoneb) 3 ml NEB Q4HRT [facility] Last Admin: 02/21/19 14:14 Dose: 3 ml Documented by: Aspirin (Aspirin) 81 mg PO DAILY [facility] Last Admin: 02/21/19 08:57 Dose: 81 mg Documented by: Cefepime HCl (Maxipime) 2 gm IV Q8H [facility]; Protocol Last Admin: 02/21/19 14:26 Dose: 2 gm Documented by: Clotrimazole (Mycelex) 10 mg PO 5XD [facility] Last Admin: 02/21/19 14:50 Dose: Not Given Documented by: Enoxaparin Sodium (Lovenox) 40 mg SQ DAILY [facility] Last Admin: 02/21/19 08:58 Dose: 40 mg Documented by: Fluoxetine HCl (Prozac) 20 mg PO DAILY [facility] Last Admin: 02/21/19 08:57 Dose: 20 mg Documented by: Folic Acid (Folic Acid) 1 mg PO QDAY [facility] Last Admin: 02/21/19 08:57 Dose: 1 mg Documented by: Gabapentin (Neurontin) 300 mg PO TID [facility] Last Admin: 02/21/19 14:26 Dose: 300 mg Documented by: Magnesium Sulfate (Magnesium Sulfate) 2 gm in 50 mls @ 50 mls/hr IV ONCE PRN PRN Reason: Magnesium </= 1.6 Lactobacillus Rhamnosus (Culturelle) 1 cap PO BID [facility] Last Admin: 02/21/19 08:58 Dose: 1 cap Documented by: Lidocaine HCl (Lidocaine 2% Uro-Jet) 5 ml UR PRN PRN PRN Reason: Straight catheteriziation Morphine Sulfate (Morphine) 0 mg IV Q3HP PRN PRN Reason: Pain Last Admin: 02/21/19 14:56 Dose: 1 mg Documented by: Ondansetron HCl (Zofran) 4 mg IV Q4HP PRN PRN Reason: Nausea And Vomiting [facility]) [facility] Admin: 02/21/19 07:23 Dose: 40 mg Documented by: Fluticasone Furoate/Umeclidinium/Vilanterol 100/62.5/25 Mcg Inhaler 1 dose INH QDAY [facility] Last Admin: 02/21/19 08:58 Dose: Not Given Documented by: Polyethylene Glycol (Miralax) 17 gm PO DAILYP PRN PRN Reason: Constipation Potassium/Phosphorus/Sodium (Neutra Phos) 1 packet PO BID [facility] Last Admin: 02/21/19 10:54 Dose: 1 packet Documented by: Prednisone (Prednisone) 40 mg PO [facility] Last Admin: 02/21/19 07:23 Dose: 40 mg Documented by: Prochlorperazine (Compazine) 10 mg IV Q6HP PRN PRN Reason: Nausea And Vomiting Sodium Chloride (Saline Flush) 10 ml IV Q8 [facility] Last Admin: 02/21/19 14:26 Dose: 10 ml Documented by: Tamsulosin HCl (Flomax) 0.4 mg PO DAILY [facility] Last Admin: 02/21/19 08:57 Dose: 0.4 mg Documented by: Throat Lozenges (Cepacol) 1 lozenge PO PRN PRN PRN Reason: Sore Throat Last Admin: 02/20/19 15:15 Dose: 1 lozenge Documented by: Trazodone HCl (Desyrel) 100 mg PO HS [facility] Last Admin: 02/20/19 21:17 Dose: 100 mg Documented by: Transfer Discharge Sum: Hosp Hospital course: With history of lung cancer and recent admission to the hospital for pneumonia 6 weeks ago. He has been residing in a [facility] facility since discharge. He states that last week he started developing left chest wall pleuritic chest pain sharp. Several days later he developed a productive cough of green sputum and shortness of breath. The symptoms continued and seemed to worsen. Today he is pleuritic chest pain and shortness of breath was so severe that he required coming to the hospital. In the ER he was tachypneic and tachycardic and workup revealed left lung pneumonia. He was hypoxic initially at 86% on room air. He received 3 nebulizer treatments with improvement in his oxygenation, but still appeared labored. His lactate was okay. Had a leukocytosis. He describes the chest wall pain as the left on the side of his chest and and sharp and is worse when he coughs or take a deep breath. Reports headaches and fevers. 02/18 Slept well. Left chest wall pain improving. Still quite short of breath but better than yesterday. Starting to work with physical therapy right now. No overnight events. Unable to cough up any sputum sample. 02/19 Patient had sudden shortness of breath this morning while getting up to go the bathroom. He was coughing with a lot of thick sputum production. Placed on BiPAP. chest x-ray chest x-ray revealing left pneumothorax. Patient comfortable on the BiPAP at this time denies shortness of breath. 02/20 Patient seen examined, no acute issues, still is weak labs stable, wbc trending down, Procalcitonin trending down, He had Pneumothorax, spontaneous yesterday, s/p chest tube placement, needed to be intubated for a short while, s/p extubation afte chest tube. Pt x ray today shows continued improvement, appreicate help from surgery Pt is pa to get chemo for his Cancer on Thursday with Dr Lane 02/21 Patient seen examined, no new complaints or concerns Chest tube in place, x ray shows inflated lung, air leak present, Appreciate surgery help labs stable. K elevated at 5.8 po kayexalate given was 5.1 later in the afternoon. replace phos The patient on this day, suddenly became short of breath, after going to bathroom, his subcutaneous edema worsened significantly. He underwent a Chest CT which showed the chest tube ? through the lung parenchyma? left pneumothorax, small right pneumothorax, and significant mediastinal air. The patient also had significant worsening subcutaneous air. Case reviewed with the Surgeon, who evaluated the patient and CT and advised transfer to a [facility] Case was reviewed with Dr Dueñas CT surgeon from [place] and Dr Avila Hospitalist, who gracefully accepted the patient for further management. In Summary the diagnosis of pneumonia, he was treated with cefepime and Zithromax. The patient responded the treatment from the infectious standpoint. 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 During the hospital stay the patient developed spontaneous pneumothorax on the left side, radiology try to place a chest tube, however they were not successful. Surgery was consulted and a chest tube was successfully placed. The patient was doing well and daily chest x-rays showed improved subcutaneous emphysema as well as continued reexpansion of the lungs. This afternoon the patient's condition deteriorated, and he was short of breath after going to the bathroom, along with increased worsening of the patient's subcutaneous emphysema. CT chest which was reported showed left-sided pneumothorax, as well as some right-sided pneumothorax and a chest tube that was crossing the hilum. A surgeon recommended the patient to be transferred to [facility] for evaluation by CT surgery. The patient has been transferred to [facility]. A/P Health care associated pneumonia -cultures neg, on cefepime and zithromax, clinically responding well to present treatment, wbc back to normal at the time of discharge Sepsis -resolved Acute on Chr hypoxic resp failure -on oxygen, titrate down as tolerated, at the time of discharge 3-4L via NC -intubated briefly for pneumothorax, s/p extubation on 3/30/19 Spontaneous left pneumonthorax -s/p chest tube, surgery following, -CXR today shows good rexpansion, still has air leak via chest tube. -Given CT findings pt is being transferred to [facility] for CT Surgery opinion. 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 DVT -lovenox - Time Spent with Patient Total time spent providing and/or coordinating transfer services: Greater than 30 minutes Transfer Discharge Sum: Exam - Constitutional Vitals: Vital Signs Temp Pulse Pulse Resp BP BP Pulse Ox 02/21/19 17:19 98.1 F 104 H 18 122/62 91 02/21/19 15:43 97.8 F 106 H 20 98/73 94 02/21/19 14:24 110 H 20 02/21/19 12:00 97.8 F 90 16 110/82 97 02/21/19 08:00 98.2 F 87 14 113/74 95 02/21/19 07:39 94 H 94 02/21/19 07:16 86 20 02/21/19 07:07 98 02/21/19 04:00 97.6 F 67 18 146/87 94 02/21/19 00:55 72 98 02/20/19 20:00 99.0 F 71 20 126/78 100 02/20/19 19:45 82 18 Intake and Output 02/21/19 02/21/19 02/21/19 05:59 13:59 21:59 Output Total 650 1175 135 Balance -650 -1175 -135 Output: Chest Tube Drainage 135 Left Mid-Axillary Chest 135 Void Amount 650 625 Stool 550 Other: Urine Appearance Clear Urine Color Pale Stool Size Small Stool Color Brown Stool Consistency Liquid Watery Weight 148 lb Patient Weight 02/22/19 05:59 Weight 148 lb Additional comments: Constitutional; Afebrile, cooperative, alert, not in distress. Respiratory system: Air Entry equal on both sides, mild bibasilar crackles, no significant wheezing at discharge. significant subcutaneous emphysema. CVS- Rate rhythm regular, S1,S2 heard, no gallop, no rub. Abdomen- Soft nontender abdomen, no organomegaly, no tenderness, no guarding or rigidity, ALMOND SORTER- AOOx3, moving all extremities, no gross focal deficit noted. Transfer Discharge Sum: Data Procedures and tests throughout hospitalization: Pending Orders 02/17/19 Consult to Physician [CONS] Stat 02/17/19 06:55 Admit as Inpatient Routine Elevate head of bed .ROUTINE IV Insertion/Management NOW Notify Provider PRN Vital Signs Q4 RD to Adjust Diet/Supplements as Needed Routine Pulse Oximetry .ROUTINE 02/17/19 07:12 Blood Culture Stat 02/17/19 09:31 Case Management Referral .Routine 02/17/19 11:02 Ambulate-Progressive TID Condition Routine IV Insertion/Management QSHIFT Intake and Output qshiftio Up to chair PRN Weight Monitoring QHS Occupational Therapy Eval & Tx DAILY Physical Therapy Eval & Tx QD-BID Continuous pulse oximetry .ROUTINE Incentive Spirometry Assess/Tx Q1HWA Nebulizer management .Routine PEP Therapy/Acapella .ROUTINE Pulse Oximetry .ROUTINE 02/17/19 12:49 Code Status [Resuscitation Status] Routine 02/18/19 10:24 Nebulizer management .Routine 02/18/19 17:00 Straight Cath Insertion NOW 02/19/19 05:10 BIPAP NOW 02/19/19 08:40 Chest tube management QSHIFT 02/19/19 10:21 Consult to Physician [CONS] Routine 02/19/19 12:51 Nebulizer management .Routine 02/19/19 19:32 Acetaminophen [Tylenol] 650 mg PO Q6HP PRN Albuterol Sulfate [Ventolin] 2.5 mg NEB Q2HP PRN Magnesium Sulfate 2 gm in 50 ml IV ONCE Ondansetron [Zofran] 4 mg IV Q4HP PRN Polyethylene Glycol 3350 [Miralax] 17 gm PO DAILYP PRN Prochlorperazine [Compazine] 10 mg IV Q6HP PRN morphine See Dose Instructions IV Q3HP PRN 02/19/19 21:00 Gabapentin [Neurontin] 300 mg PO TID Lactobacillus [Culturelle] 1 cap PO BID traZODone HCL [Desyrel] 100 mg PO HS 02/19/19 22:00 0.9 % Sodium Chloride [Saline Flush] 10 ml IV Q8 Cefepime [Maxipime] 2 gm IV Q8H 02/19/19 23:00 Ipratropium/Albuterol [Duoneb] 3 ml NEB Q4HRT 02/20/19 07:30 Pantoprazole [Protonix] 40 mg PO QAMAC 02/20/19 09:00 Aspirin 81 mg PO DAILY Enoxaparin [Lovenox] 40 mg SQ DAILY FLUoxetine HCL [PROzac] 20 mg PO DAILY Folic Acid 1 mg PO QDAY Patients Own Medication 1 dose INH QDAY Tamsulosin [Flomax] 0.4 mg PO DAILY 02/20/19 11:00 Clotrimazole [Mycelex] 10 mg PO 5XD 02/20/19 11:06 Benzocaine/Menthol [Cepacol] 1 lozenge PO PRN PRN 02/20/19 16:45 Lidocaine 2% Uro-Jet 5 ml UR PRN PRN 02/21/19 08:00 [facility]SONE [facility] [place]/21[place] 09:00 Neutra Phos 1 packet PO BID 02/21/19 12:50 Regular Diet 02/22/19 04:00 Complete Blood Count DAILY Inpatient Panel DAILY 02/22/19 09:00 XR chest 1V portable DAILY 02/23/19 04:00 Complete Blood Count DAILY Inpatient Panel DAILY 02/23/19 09:00 XR chest 1V portable DAILY 02/24/19 04:00 Complete Blood Count DAILY Inpatient Panel DAILY 02/24/19 09:00 XR chest 1V portable DAILY 02/25/19 04:00 Complete Blood Count DAILY Inpatient Panel DAILY 02/26/19 04:00 Complete Blood Count DAILY Inpatient Panel DAILY Transfer Discharge Sum: A/P - Plan Disposition: [facility]
--- NOTE | 2019-02-21 19:34 | General Surgery Progress Note ---
Subjective Patient reports: still having pain, shortness of breath, afebrile Narrative: Note initiated : 02/21/19 at 7:33 pm Service Date, if different from initiated Date: [] Patient: Joni Darnell 83 y/o M admitted on 02/17/19 for SOB, Chest Pain. Chief Complaint: [Patient had acute onset of shortness of breath while up to the bathroom earlier today. Follow-up chest x-ray and CT showed worsening pneumothorax with increasing air space in the pleural cavity Despite having a functioning chest tube. It is felt that the present treatment is not adequate for this patient and that he needs to be transferred to another higher level of care. Discussed this with the hospitalist who agrees. The chest tube was repo sitioned in preparation for the patient to be transferred. His daughter was present and she was informed of the change. She had been previously informed by the hospitalist of the same.] Objective Temp Pulse Resp BP Pulse Ox 98.1 F 104 H 18 122/62 91 02/21/19 17:19 02/21/19 17:19 02/21/19 17:19 02/21/19 17:19 02/21/19 17:19 - Additional Data Intake & Output - Last 24 hours: Intake & Output 02/19/19 02/20/19 02/21/19 02/22/19 05:59 05:59 05:59 05:59 Intake Total 2590 540 1100 Output Total 0338 537 7102 1310 Balance 1340 -60 -1245 -1310 Weight 150 lb 6.4 oz 150 lb 148 lb 148 lb - Labs 02/21/19 03:43 02/21/19 16:39 Diabetes panel 02/21/19 02/21/19 Range/Units 03:43 16:39 Sodium 137 135 (133-145) mmol/L Potassium 5.8 H 5.1 (3.3-5.1) mmol/L Chloride 106 101 (96-108) mmol/L Carbon Dioxide 20 L 24 (22-30) mmol/L BUN 25 H 27 H (8-23) mg/dl Creatinine 0.8 0.9 (0.7-1.2) mg/dl Glucose 128 H 298 H (70-105) mg/dL Calcium 7.9 L 8.0 L (8.6-10.4) mg/dl AST 13 (0-37) U/l ALT 11 (0-40) U/l Alkaline Phosphatase 86 (39-117) U/L Total Protein 5.0 L (5.9-8.4) gm/dL Albumin 2.5 L (3.2-5.2) gm/dL Triglycerides 94 (<150) mg/dl Calcium panel 02/21/19 02/21/19 Range/Units 03:43 16:39 Calcium 7.9 L 8.0 L (8.6-10.4) mg/dl Phosphorus 1.3 L (2.7-4.5) mg/dL Albumin 2.5 L (3.2-5.2) gm/dL Pituitary panel 02/21/19 02/21/19 Range/Units 03:43 16:39 Sodium 137 135 (133-145) mmol/L Potassium 5.8 H 5.1 (3.3-5.1) mmol/L Chloride 106 101 (96-108) mmol/L Carbon Dioxide 20 L 24 (22-30) mmol/L BUN 25 H 27 H (8-23) mg/dl Creatinine 0.8 0.9 (0.7-1.2) mg/dl Glucose 128 H 298 H (70-105) mg/dL Calcium 7.9 L 8.0 L (8.6-10.4) mg/dl Adrenal panel 02/21/19 02/21/19 Range/Units 03:43 16:39 Sodium 137 135 (133-145) mmol/L Potassium 5.8 H 5.1 (3.3-5.1) mmol/L Chloride 106 101 (96-108) mmol/L Carbon Dioxide 20 L 24 (22-30) mmol/L BUN 25 H 27 H (8-23) mg/dl Creatinine 0.8 0.9 (0.7-1.2) mg/dl Glucose 128 H 298 H (70-105) mg/dL Calcium 7.9 L 8.0 L (8.6-10.4) mg/dl Total Bilirubin 0.2 (0.0-1.0) mg/dL AST 13 (0-37) U/l ALT 11 (0-40) U/l Alkaline Phosphatase 86 (39-117) U/L Total Protein 5.0 L (5.9-8.4) gm/dL Albumin 2.5 L (3.2-5.2) gm/dL Assessment and Plan (1) Spontaneous pneumothorax Status: Acute Assessment and plan: Continuous suction at 30 cm water Chest 2 withdrawn 4 cm and secured Follow-up chest x-ray shows good position. Patient will be transferred to a higher level of care at [facility] in [place] (2) COPD (chronic obstructive pulmonary disease) Status: Chronic (3) Lung cancer Status: Chronic (4) Pneumonia involving left lung Status: Acute - Time Spent With Patient Total time spent is greater than 50% in coordination of care (as documented) at patient's floor/unit and/or counseling patient:
--- NOTE | 2019-02-21 19:40 | XRay Report ---
INDICATION: Repositioning of left-sided chest tube TECHNIQUE: AP chest x-ray,portable semiupright COMPARISON: Most recent previous examination dated 02/21/2019. Previous CT scan dated 02/21/2019 FINDINGS:Left-sided chest tube is been pulled back slightly. Probably increased left pneumothorax although this is difficult to visualize well secondary to extensive overlying soft tissue gas. I believe there is increased left-sided volume loss and infiltrate. No change in right lung IMPRESSION: 1. Slightly repositioned left-sided chest tube. Chest tube is been pulled back slightly 2. Probable increased left pneumothorax. Increased left lung infiltrates 3. Persistent diffuse soft tissue gas Interpreted and Authenticated by: Lon Bonilla 02/21/19
== END 2019-02-21 20:03 | disposition short-term general hospital (02) | DRG 871 ==
LOC: ED 05:00 → MEDSUR 07:59 → ICU 02-19 05:27
PROVIDERS: ADMIT Internal Medicine; ATTEND Internal Medicine